=== PATIENT | female | born 1970 | race Two or more races ===

== ENCOUNTER 2019-01-08 15:00 | Inpatient (IN) | payer OTHER ==
[~2019-01-08] VITALS: Ht 180.3 cm; Wt 83.0 kg
[2019-01-08] MEDS ORDERED: SODIUM CHLORIDE 0.9% 1,000 ML IV ONE ×2 (15:04→20:15)
[2019-01-08 15:50] LABS: Basophils # (auto) 0.1 uL; Basophils % (auto) 0.5 % (0.0-2.0); Eosinophils # (auto) 0 uL; Eosinophils % (auto) 0.3 % (0.0-7.0); Hematocrit 37.1 % (36.0-46.0); Hemoglobin 12.4 g/dL (12.2-16.2); Lymphocytes % (auto) 5.8 % (10.0-50.0); Mean Corpuscular Hemoglobin 33.6 pg (28.0-32.0); Mean Corpuscular Hgb Conc. 33.4 g/dL (32.0-36.0); Mean Corpuscular Volume 100.7 fL (80.0-100.0); Monocytes # (auto) 1.4 uL; Monocytes % (auto) 8.4 % (0.0-12.0); Neutrophils # (auto) 14.3 uL; Platelet Count (auto) 197 10^3/uL (140-450); Red Blood Cells 3.69 10^6/uL (4.0-5.20); White Blood Cell 16.8 10^3/uL (4.4-10.8)
[2019-01-08 15:56] LABS: Albumin 1.7 g/dL (3.4-5.0); BUN/Creatinine Ratio 14.4; Calcium 8.8 mg/dL (8.5-10.1); Magnesium 1.8 mg/dL (1.6-2.6)
[2019-01-08 15:59] LABS: Bilirubin, Total 3.9 mg/dL (0.2-1.0); Total Protein 6.3 g/dL (6.4-8.2)
[2019-01-08 16:02] LABS: Potassium 2.8 mmol/L (3.5-5.1)
[2019-01-08] MEDS ORDERED: POTASSIUM CHL 20MEQ/100ML 100 ML IV ONE (16:45)
[2019-01-08] MEDS ORDERED: POTASSIUM CHL 20 Meq TABLET PO ONE (20:00)
[2019-01-08] MEDS ORDERED: NITROGLYCERIN 0.4 MG SL TAB SL PRN (20:45)
[2019-01-08] MEDS ORDERED: TEMAZEPAM 15 MG CAP PO PRN (20:45)
[2019-01-08] MEDS ORDERED: ONDANSETRON HCL 4 MG/2 ML VIAL IV PRN (20:45)
[2019-01-08] MEDS ORDERED: chlordiazePOXIDE HCL 25 MG CAP PO PRN (20:45)
[2019-01-08] MEDS ORDERED: MORPHINE SULF INJ 2 MG/ML SYRINGE 1ML IV PRN (20:45)
[2019-01-08] MEDS ORDERED: PANTOPRAZOLE 40 MG TAB PO ONE (20:45)
[2019-01-08] MEDS ORDERED: LEVOFLOXACIN 500MG 100 ML IV ONE (20:45)
[2019-01-08 21:45] VITALS: BP 112/68
[2019-01-08] MEDS ORDERED: SODIUM CHLORIDE 0.9% 500 ML IV ONE (21:45)
--- NOTE | 2019-01-08 21:45 | NUR ---
RECEIVED PATIENT FORM ED VIA STRETCHER, AWAKE, ALERT, ORIENTED X4. NO S/S OF RESPIRATORY DISTRESS, DENIES SOB AND CHEST PAIN. DENIES ABDOMINAL PAIN, NAUSEA AND VOMITING. WITH IV ON THE LEFT AC GAUGE 20. ORIENTED ON PLAN OF CARE. BED IS LOCKED AND IN LOWEST LEVEL, SIDE RAILS UP X2, BED ALARM ON, CALL LIGHT WITHIN REACH. WILL CONTINUE TO MONITOR
[2019-01-08 22:00] VITALS: BP 112/68
--- NOTE | 2019-01-08 22:30 | NUR ---
WITH ABRASIONS ON THE RIGHT FOREHEAD AND RIGHT FOREARM. PHOTOS TAKEN
[2019-01-08] MEDS ORDERED: INSLISPI SC (22:37)
[2019-01-08] MEDS ORDERED: MAGN400T5 PO (22:37)
[2019-01-08] MEDS ORDERED: INSLANTI SC (22:37)
--- NOTE | 2019-01-08 23:50 | NUR ---
[facility]SA NASAL SWAB SAMPLE SENT TO LAB
[2019-01-09 05:10] VITALS: BP 105/74
--- NOTE | 2019-01-09 05:13 | NUR ---
ULCERS ON THE 2ND DIGIT OF BOTH RIGHT AND LEFT FOOT NOTED. PICTURES TAKEN
[2019-01-09 06:30] LABS: Basophils # (auto) 0.1 uL; Basophils % (auto) 0.3 % (0.0-2.0); Eosinophils # (auto) 0.1 uL; Eosinophils % (auto) 0.3 % (0.0-7.0); Hematocrit 32.1 % (36.0-46.0); Hemoglobin 10.6 g/dL (12.2-16.2); Lymphocytes # (auto) 1.1 uL; Lymphocytes % (auto) 5.6 % (10.0-50.0); Mean Corpuscular Hemoglobin 33.3 pg (28.0-32.0); Mean Corpuscular Hgb Conc. 32.9 g/dL (32.0-36.0); Mean Corpuscular Volume 101.1 fL (80.0-100.0); Monocytes # (auto) 2.8 uL; Neutrophils # (auto) 14.7 uL; Neutrophils % (auto) 78.8 % (37.0-80.0); Platelet Count (auto) 189 10^3/uL (140-450); Red Blood Cells 3.18 10^6/uL (4.0-5.20); Red Cell Distribution Width 15.1 % (11.8-14.3); White Blood Cell 18.6 10^3/uL (4.4-10.8)
[2019-01-09 06:47] LABS: Potassium 3.1 mmol/L (3.5-5.1)
[2019-01-09 06:52] LABS: Albumin 1.4 g/dL (3.4-5.0); Calcium 7.8 mg/dL (8.5-10.1)
[2019-01-09 06:55] LABS: Total Protein 5.5 g/dL (6.4-8.2)
--- NOTE | 2019-01-09 07:23 | NUR ---
CARE ENDORSED TO AM SHIFT RN
--- NOTE | 2019-01-09 08:00 | NUR ---
AWAKE ALERT ORIENTED TIMES 4 DENIES ANY PAIN AT THIS TIME.
[2019-01-09 09:28] VITALS: BP 110/73
[2019-01-09] MEDS: FOLIC ACID 1 MG TAB PO SCH (10:33)
[2019-01-09] MEDS: LEVOFLOXACIN 500MG 100 ML IV SCH (10:33)
[2019-01-09] MEDS: PANTOPRAZOLE 40 MG TAB PO SCH (10:34)
[2019-01-09] MEDS: THIAMINE HCL 100 MG TAB PO SCH (10:34)
--- NOTE | 2019-01-09 12:00 | NUR ---
DR Shanita MERCER AT BEDSIDE DISCUSSED PLAN OF CARE WITH PATIENT. PATIENT VERBALIZED UNDERSTANDING. PLAN FOR DISCHARGE TOMORROW.
--- NOTE | 2019-01-09 12:20 | NUR ---
WOUND CARE NOTE: Wound care in to see patient per wound care request regarding multiple skin integrity issue that are noted present on admission. Bedside nurse took photograph of patient's skin integrity issue upon admission for reference. Patient is 48 years old female with admitting diagnosis of Alcohol Withdrawal, Bradycardia. She has history of DM, htn,liver problems. Patient is resting in bed in Rm. 290A. She's ambulatory and able to turn and reposition self. Her current Jr score is 19. Patient is in no stated pain at this time. No open wound noted other than multiple scabbed wounds/abrasions to forehead, Rt forearm, hand, dry intact scabbed wounds to Lt & Rt 2nd toe and intact ecchymosis to Lt upper shoulder and arm. No pressure injury issue noted. Patient tolerated skin examination well. Left patient seated at side of bed to eat her lunch, RN Jolene made aware. No further Wound care monitoring needed at this time. RECOMMENDATION: New wound consult in case of active wound, pressure injury, Jr score of 12 and below. Addendum: 01/09/19 at 1658 by Marta Nielsen RN Amended: Links added.
[2019-01-09] MEDS: MULTIPLE VITAMIN 10 ML, MAGNESIUM SULF SDV 50% 8 MEQ, THIAMINE INJ 100 MG in SODIUM CHL... IV SCH (12:38)
[2019-01-09 12:41] VITALS: BP 110/73
[2019-01-09] MEDS ORDERED: DEXTROSE (50%) 50ML SYRG IV PRN (14:15)
[2019-01-09 16:34] VITALS: BP 133/88
[2019-01-09] MEDS: InsuLIN REG 1unit/0.01ml Soln (100units/ml) SC SCH ×2 (17:10→21:41)
[2019-01-09] MEDS: ACCU-CHEK COMFORT CURVE STRIP VI SCH ×2 (17:10→21:41)
--- NOTE | 2019-01-09 18:36 | NUR ---
PAGED HOSPITALIST TO NOTIFY OF POSITIVE BLOOD CULTURE GRAM NEGATIVE RODS
--- NOTE | 2019-01-09 19:20 | NUR ---
Opening Shift Note Assumed care of patient, awake and alert. No S/S of distress/SOB or pain. Instructed on POC and to call for assist PRN, will continue to monitor for changes Q1hr and PRN. Bed alarm on, safety precautions in place. Inform pt to please notify before getting out of, bed locked and in lowest position, call light within reach.
--- NOTE | 2019-01-09 20:07 | NUR ---
UA SENT TO LAB
[2019-01-09 21:00] LABS: Urine Bacteria FEW /hpf (None Seen); Urine Blood 2+ /uL (Negative); Urine Hyaline Cast FEW /lpf (0 - 2); Urine Mucus FEW (None Seen); Urine Specific Gravity 1.011 (1.001-1.035); Urine WBC 220 /hpf (0 - 5); Urine WBC Clumps PRESENT /hpf (None Seen)
[2019-01-09 22:00] VITALS: BP 118/76
--- NOTE | 2019-01-10 01:52 | NUR ---
PT ROUNDS Assisted pt to the bathroom, but upon returning pt wanted to leave, not alert with unsteady gait. Inform pt that it was too early for her to leave and against medical advice. Was assisted by Carie Zimmer and QUINCY Gottlieb and US Vivar as pt is high risk for fall with a very unsteady gait. PT fell asleep shortly after returning to bed.
[2019-01-10 05:00] VITALS: BP 102/60
--- NOTE | 2019-01-10 05:55 | NUR ---
PT ROUNDS PT wanting to leave, inform patient that it is against medical advice , pt currently not alert, unsteady gait. Inform pt if she would like to take anything that will calm her down, pt refused. Informed pt will attempt to get in touch with . Informed fire alarm dispatcher of situation. Left voicemail. Will await call back and continue to monitor pt at this time fire alarm dispatcher at bedside and primary RN at Bedside. fire alarm dispatcher informed pt if would like to take any meds to help her calm down, pt refused stated " I don't want to take anything from you people." Assited pt to bed will continue to monitor pt.
--- NOTE | 2019-01-10 06:10 | NUR ---
ATTEMPTED TO CALL NEXT OF KIN unsuccessful attempt, cell and home phone was called.
[2019-01-10] MEDS: InsuLIN REG 1unit/0.01ml Soln (100units/ml) SC SCH ×4 (06:11→21:57)
[2019-01-10] MEDS: ACCU-CHEK COMFORT CURVE STRIP VI SCH ×4 (06:11→21:35)
--- NOTE | 2019-01-10 06:25 | NUR ---
PT ROUNDS PT sleeping will continue to monitor pt
--- NOTE | 2019-01-10 06:51 | NUR ---
ATTEMPTED TO CALL Attempted to call , no answer left voice mail, will inform day nurse/
--- NOTE | 2019-01-10 07:17 | NUR ---
CLOSING NOTE Report endorsed to day RN PT awake, laying in bed with feet dangling. Informed day RN in regards to current situation and that weigher and charger was informed
--- NOTE | 2019-01-10 08:00 | NUR ---
AWAKE ALERT ORIENTED TIMES 3. ASKING TO GO HOME. I INFORMED HER THAT WE ARE WAITING FOR DR MERCER.
[2019-01-10 09:41] VITALS: BP 102/57
[2019-01-10] MEDS: LEVOFLOXACIN 500MG 100 ML IV SCH (09:57)
[2019-01-10] MEDS: FOLIC ACID 1 MG TAB PO SCH (09:57)
[2019-01-10] MEDS: PANTOPRAZOLE 40 MG TAB PO SCH (09:57)
[2019-01-10] MEDS: THIAMINE HCL 100 MG TAB PO SCH (09:57)
--- NOTE | 2019-01-10 10:54 | NUR ---
ASKING FOR HER IV TO BE REMOVED. SHE SAID SHE CALLED HER RIDE AND WANTS TO LEAVE. SHE REMOVED HER TELE BOX.
--- NOTE | 2019-01-10 11:02 | NUR ---
AT BEDSIDE. HE STATES THIS IS NOT THE NORMAL BEHAVIOR OF THE PATIENT. SHE IS MUCH SLOWER THAN USUAL AND WOULD LIKE TO SPEAK TO THE DOCTOR. HE SAID HOW CAN SHE BE DISCHARGED WHEN SHE CAN'T EVEN FUNCTION. THE PATIENT HAS GENERALIZED WEAKNESS.
[2019-01-10] MEDS: MULTIPLE VITAMIN 10 ML, MAGNESIUM SULF SDV 50% 8 MEQ, THIAMINE INJ 100 MG in SODIUM CHL... IV SCH (12:00)
[2019-01-10] MEDS ORDERED: POTASSIUM CHL 20MEQ/100ML 100 ML IV ONE (12:15)
[2019-01-10] MEDS ORDERED: VANCOMYCIN PER PHARMACY 0 MG IV SCH (12:15)
[2019-01-10] MEDS ORDERED: VANCOMYCIN 1GM/250ML 250 ML IV ONE (12:15)
[2019-01-10 12:55] VITALS: BP 96/67
[2019-01-10 13:30] LABS: Albumin 1.5 g/dL (3.4-5.0); BUN/Creatinine Ratio 18.4; Calcium 7.8 mg/dL (8.5-10.1); Potassium 3.9 mmol/L (3.5-5.1)
[2019-01-10 13:32] LABS: Bilirubin, Total 2.3 mg/dL (0.2-1.0); Total Protein 5.8 g/dL (6.4-8.2)
[2019-01-10] MEDS: VANCOMYCIN 1,250 MG in D5W 5% 250 ML IV SCH (14:29)
[2019-01-10 16:39] VITALS: BP 107/78
--- NOTE | 2019-01-10 20:02 | NUR ---
report received from day rn poc reviewed, charge notified of sitter room available, pt needs a sitter for safety
[2019-01-10 21:04] VITALS: BP 130/86
--- NOTE | 2019-01-10 21:30 | NUR ---
pt starting to have an increase in tremors and restlessness and confusion, librium given as ordered, pt moved to rm 287a sitter room for safety
[2019-01-10 22:00] VITALS: BP 130/86
[2019-01-11] MEDS: VANCOMYCIN 1,250 MG in D5W 5% 250 ML IV SCH ×3 (02:36→16:47)
--- NOTE | 2019-01-11 02:44 | NUR ---
resting quietly with eyes closed no c/o pain
[2019-01-11 05:22] VITALS: BP 113/73
[2019-01-11 06:47] LABS: Albumin 1.5 g/dL (3.4-5.0); Calcium 8.2 mg/dL (8.5-10.1); Potassium 3.2 mmol/L (3.5-5.1)
[2019-01-11 06:49] LABS: BUN/Creatinine Ratio 17.8
[2019-01-11] MEDS: InsuLIN REG 1unit/0.01ml Soln (100units/ml) SC SCH ×4 (06:49→21:51)
[2019-01-11] MEDS: ACCU-CHEK COMFORT CURVE STRIP VI SCH ×4 (06:50→21:51)
[2019-01-11 06:59] LABS: Alcohol, Urine < 3.0 mg/dL (0-5); Amphetamine Screen, Urine NEGATIVE (NEGATIVE); Barbiturate Scree,Urine NEGATIVE (NEGATIVE); Benzodiazephine Screen, Urine POSITIVE (NEGATIVE); Cannabinoid Screen, Urine NEGATIVE (NEGATIVE); Cocaine Screen, Urine NEGATIVE (NEGATIVE); Opiate Scree,Urine NEGATIVE (NEGATIVE); Phencyclidine Screen, Urine NEGATIVE (NEGATIVE)
--- NOTE | 2019-01-11 06:59 | NUR ---
awoke am care given resting with eyes closed no c/o pain or s/s of anxiety will continue to monitor and report off to am nurse
[2019-01-11 07:00] LABS: Bilirubin, Total 1.9 mg/dL (0.2-1.0)
[2019-01-11 07:19] LABS: Hematocrit 33.3 % (36.0-46.0); Mean Corpuscular Hemoglobin 33.5 pg (28.0-32.0); Mean Corpuscular Volume 101.5 fL (80.0-100.0); Platelet Count (auto) 273 10^3/uL (140-450); Red Blood Cells 3.28 10^6/uL (4.0-5.20); Red Cell Distribution Width 15.1 % (11.8-14.3); White Blood Cell 24.2 10^3/uL (4.4-10.8)
[2019-01-11 07:28] LABS: Basophils % (manual) 0 (0.0-2.0); Blast Cells 0; Eosinophils % (manual) 0 (0-7); Metamyelocytes % 0; Myelocytes % 0; Promyelocytes % 0; Reactive Lymphocytes 0
--- NOTE | 2019-01-11 08:00 | NUR ---
PT RESTING IN BED, NO DISTRESS NOTED. SITTER AT BEDSIDE. PT DENIED PAIN AT THIS TIME.
[2019-01-11 08:24] LABS: Band Neutrophils % (manual) 1; Lymphocytes % (manual) 5 (10.0-50.0); Monocytes % (manual) 4 (0-12)
[2019-01-11 09:00] VITALS: BP 106/69
[2019-01-11] MEDS: LEVOFLOXACIN 500MG 100 ML IV SCH (09:44)
[2019-01-11] MEDS: FOLIC ACID 1 MG TAB PO SCH (09:44)
[2019-01-11] MEDS: THIAMINE HCL 100 MG TAB PO SCH (09:45)
[2019-01-11] MEDS: PANTOPRAZOLE 40 MG TAB PO SCH (09:45)
[2019-01-11] MEDS: MEROPENEM 1GM IVPB 100 ML IV SCH ×2 (11:54→20:00)
[2019-01-11 12:48] VITALS: BP 126/80
--- NOTE | 2019-01-11 12:49 | NUR ---
DR MERCER SAW PT AND DISCUSSED POC. DR MERCER REQUESTS A CALL TO LAB TO FIND OUT SENSITIVITY FOR BLOOD AND URINE CULTURES. CALLED LAB, LAB REPORTS POSSIBLE ESBL OF BLOOD, BUT UNSURE, TECH WILL REPEAT SENSITIVITY AND WILL BE READY TOMORROW. THE URINE CULTURE SHE REPORTS WON'T BE READY UNTIL TOMORROW WELL. TECH REPORTS SHE WILL PUT IN NOTE WITH MORE INFO FOR MD. WILL CONTINUE TO MONITOR.
--- NOTE | 2019-01-11 12:58 | NUR ---
DR MERCER UPDATED ON LAB REPORT. NOTIFIED PT POT 3.2. NEW ORDERS FOR 20 MEQ POT. WILL CONTINUE TO MONITOR.
[2019-01-11] MEDS: MULTIPLE VITAMIN 10 ML, MAGNESIUM SULF SDV 50% 8 MEQ, THIAMINE INJ 100 MG in SODIUM CHL... IV SCH (14:14)
[2019-01-11] MEDS: POTASSIUM CHL 20 Meq TABLET PO ONE ×2 (14:14→16:47)
[2019-01-11 17:00] VITALS: BP 120/76
--- NOTE | 2019-01-11 19:05 | NUR ---
OPEN SHIFT NOTE PATIENT IS ALERT AND ORIENTED X3, ON ROOM AIR, RIGHT HAND 20 GAUGE IS INTACT AND PATENT. PATIENT HAS NO COMPLAINTS OF PAIN AT THIS TIME. POC DISCUSSED AND QUESTIONS ANSWERED. BED IS LOCKED IN LOWEST POSITION WITH SIDE RAILS UP X2 FOR SAFETY. CALL LIGHT IS WITHIN REACH AND ENCOURAGED TO CALL IF NEEDS ANYTHING. WILL CONTINUE TO ROUND Q1HR AND PRN.
[2019-01-11 22:00] VITALS: BP 132/80
[2019-01-12 01:19] LABS: Albumin 1.6 g/dL (3.4-5.0); Calcium 8.4 mg/dL (8.5-10.1); Potassium 3.3 mmol/L (3.5-5.1)
[2019-01-12 01:21] LABS: BUN/Creatinine Ratio 15.8
[2019-01-12 01:23] LABS: Bilirubin, Total 1.9 mg/dL (0.2-1.0)
[2019-01-12] MEDS: VANCOMYCIN 1,250 MG in D5W 5% 250 ML IV SCH (02:07)
[2019-01-12] MEDS: MEROPENEM 1GM IVPB 100 ML IV SCH ×2 (04:07→11:19)
[2019-01-12] MEDS: ACCU-CHEK COMFORT CURVE STRIP VI SCH ×3 (06:24→18:28)
[2019-01-12 06:28] VITALS: BP 113/68
[2019-01-12] MEDS: InsuLIN REG 1unit/0.01ml Soln (100units/ml) SC SCH ×3 (06:31→18:28)
[2019-01-12 07:19] LABS: Basophils # (auto) 0 uL; Basophils % (auto) 0.2 % (0.0-2.0); Eosinophils # (auto) 0.1 uL; Eosinophils % (auto) 0.3 % (0.0-7.0); Hematocrit 29.8 % (36.0-46.0); Hemoglobin 9.8 g/dL (12.2-16.2); Lymphocytes # (auto) 0.9 uL; Lymphocytes % (auto) 4.3 % (10.0-50.0); Mean Corpuscular Hemoglobin 33.4 pg (28.0-32.0); Mean Corpuscular Hgb Conc. 32.9 g/dL (32.0-36.0); Mean Corpuscular Volume 101.5 fL (80.0-100.0); Monocytes # (auto) 0.7 uL; Monocytes % (auto) 3.5 % (0.0-12.0); Neutrophils # (auto) 19.4 uL; Neutrophils % (auto) 91.7 % (37.0-80.0); Platelet Count (auto) 287 10^3/uL (140-450); Red Blood Cells 2.94 10^6/uL (4.0-5.20); Red Cell Distribution Width 15.4 % (11.8-14.3); White Blood Cell 21.1 10^3/uL (4.4-10.8)
[2019-01-12 07:26] LABS: Albumin 1.3 g/dL (3.4-5.0); BUN/Creatinine Ratio 19.3; Calcium 7.4 mg/dL (8.5-10.1); Potassium 3.2 mmol/L (3.5-5.1)
[2019-01-12 07:28] LABS: Bilirubin, Total 1.6 mg/dL (0.2-1.0); Total Protein 5.5 g/dL (6.4-8.2)
--- NOTE | 2019-01-12 07:41 | NUR ---
CALLED LAB FOR SENSITIVITY RESULTS, NO ANSWER. PT A AND O X 4 AND RESTING IN BED. PT REPORTS NO PAIN AT THIS TIME. SITTER AT BEDSIDE, WILL CONTINUE TO MONITOR.
--- NOTE | 2019-01-12 08:12 | NUR ---
CALLED LAB AGAIN FOR SENSITIVITY RESULT FOR BLOOD AND URINE CULTURES. TECH REPORTS SHE JUST GOT IN AND WILL CALL BACK IN 10 MINUTES.
--- NOTE | 2019-01-12 08:34 | NUR ---
RECEIVED CALL FROM LAB, PT POSITIVE FOR ECOLI AND ESBL IN BLOOD AND URINE, REPORTED TO CHARGE TO HAVE PT CHANGE ROOMS, CHARGE AWARE, LIMITED ROOMS AVAILABLE, WILL CONTINUE TO MONITOR.
[2019-01-12 08:48] VITALS: BP 94/66
[2019-01-12] MEDS: THIAMINE HCL 100 MG TAB PO SCH (09:29)
[2019-01-12] MEDS: PANTOPRAZOLE 40 MG TAB PO SCH (09:29)
[2019-01-12] MEDS: FOLIC ACID 1 MG TAB PO SCH (09:29)
[2019-01-12] MEDS: MULTIPLE VITAMIN 10 ML, MAGNESIUM SULF SDV 50% 8 MEQ, THIAMINE INJ 100 MG in SODIUM CHL... IV SCH (11:20)
--- NOTE | 2019-01-12 12:03 | NUR ---
DR MERCER SAW PATIENT, NEW ORDERS TO TRANSFER PT TO [facility]. REQUESTS JUNIOR START ON TRANSFER. CALLED JUNIOR AND LEFT MESSAGE REQUESTING SHE BEGIN TRANSFER PROCESS.
[2019-01-12] MEDS ORDERED: POTASSIUM CHL 20 Meq TABLET PO ONE (12:45)
[2019-01-12 13:06] VITALS: BP 109/72
--- NOTE | 2019-01-12 13:18 | NUR ---
CALLED JUNIOR AGAIN, NO ANSWER, LEFT ANOTHER MESSAGE REQUESTING SHE START ON PT TRANSFER. WILL CONTINUE TO MONITOR.
--- NOTE | 2019-01-12 13:24 | NUR ---
LUZMA IN CASE MANAGEMENT CALLED. SHE REPORTS SHE WILL FAX PT INFORMATION TO [facility] AND [facility] WILL CALL WHEN THEY HAVE BED AVAILABLE.
--- NOTE | 2019-01-12 13:33 | NUR ---
I faxed transfer order to [facility].
--- NOTE | 2019-01-12 13:51 | NUR ---
I spoke with [facility] [employer] Counter Clerk Tara, she is aware of the transfer order and is working on a bed for this patient-provided her with contact information for both Dr. Shanita Shaikh and the nurse's station-they will call nurse's station when a bed becomes available.
--- NOTE | 2019-01-12 15:13 | NUR ---
Nutrition Assessment Notes please see attached link for complete assessment Est. Needs BW [id number] kcal (23-255 kcal/kgBW), 83-99 gms pro (1.0-1.2 gms/kgBW r/t severe hypoalb). Will continue to monitor pertinent labs and reassess nutrient need prn Addendum: 01/12/19 at [address] Amended: Links added.
[2019-01-12 17:00] VITALS: BP 131/82
--- NOTE | 2019-01-12 18:00 | NUR ---
REPOSSESSION AGENT REPORTS PT IV SITE ON HAND IS SWOLLEN AND TENDER. IV DISCONTINUED. NEW IV ATTEMPTED TWICE. UNABLE TO START. ASKED LEE PRECEPTING FOR ASSISTANCE. NEW IV INSERTED USING STERILE TECHNIQUE, LH 22G. IV FLUSHED WITH 10 MLS 0.9 NS. PT TOLERATED PROCEDURE WELL.
--- NOTE | 2019-01-12 19:09 | NUR ---
PATIENTS BROTHER AT BEDSIDE AND NOTIFIED OF PATIENTS TRANSFER TO [facility] [place] ROOM 318. PATIENTS CALLED AND NOTIFIED OF TRANSFER WELL.
[2019-01-12 19:14] VITALS: BP 131/82
--- NOTE | 2019-01-12 20:00 | NUR ---
RECEIVED CALL FROM NICHOLE AT [facility] [phone], PT TRANSFERING TO [facility] [place] [id number] [facility], . ACCEPTING DR IS DR SORENSON. NURSE TO GIVE REPORT TO IS MARINA MATHEW. AMBULANCE WILL RN TRANSFER PATIENT AT 1999. NOTIFIED PT BROTHER YAJAIRA GONZALEZ AND OF PT TRANSFER, BOTH AT PATIENT BEDSIDE. NIGHT NURSE REPORTS SHE WILL NOTIFY . DISCHARGE PAPERWORK DONE, ONLY SIGNATURES NEEDED FROM PATIENT. ATTEMPTED TO GIVE REPORT TO NURSE AT [facility]. NURSE REPORTED HE WAS BUSY AND TO PLEASE CALL BACK. GAVE REPORT TO NIGHT NURSE, SHE REPORTS SHE WILL CALL PT AND NOTIFY HIM AND GIVE REPORT TO MARINA MATHEW AT [facility].
--- NOTE | 2019-01-12 20:07 | NUR ---
PATIENT WILL BE TRANSFERRING TO ROOM 318 AT [facility]. REPORT GIVEN TO [facility] [id number].
== END 2019-01-12 20:45 | disposition short-term general hospital (02) | DRG 871 ==
LOC: EDBD 15:00 → ER 15:00 → TELE 20:34 → TELE-WESTW 21:47
PROVIDERS: ADMIT Nurse Practitioner; ATTEND Family Medicine
DX: A41.50 Gram-negative sepsis, unspecified (principal); E43 Unspecified severe protein-calorie malnutrition; E87.1 Hypo-osmolality and hyponatremia; E87.6 Hypokalemia; K70.30 Alcoholic cirrhosis of liver without ascites; I10 Essential (primary) hypertension; E86.0 Dehydration; E11.9 Type 2 diabetes mellitus without complications; E87.8 Other disorders of electrolyte and fluid balance, not elsewhere classified; F10.10 Alcohol abuse, uncomplicated; Z90.710 Acquired absence of both cervix and uterus; Z88.1 Allergy status to other antibiotic agents; Z88.0 Allergy status to penicillin; Z90.49 Acquired absence of other specified parts of digestive tract; Z98.51 Tubal ligation status; Z68.25 Body mass index [BMI] 25.0-25.9, adult
CPT/HCPCS: 36415; 70450; 71045; 73030; 80053; 80202; 80307; 80320; 81001; 82140; 82962; 83605; 83690; 83735; 85007; 85025; 85027; 87040; 87077; 87081; 87086; 87088; 87186; 94761; 96361; 96365; 96366; 96375; G0378; J1815; J1956; J2185; J3480; J7060

== ENCOUNTER 2020-04-26 17:15 | Emergency (ER) | payer OTHER ==
[~2020-04-26] VITALS: Ht 177.8 cm; Wt 72.6 kg
[~2020-04-26 17:15] MED LIST: INSLANTI SC; INSLISPI SC; MAGN400T40 PO
[2020-04-26] MEDS ORDERED: ONDANSETRON HCL 4 MG/2 ML VIAL IV ONE (18:15)
[2020-04-26] MEDS ORDERED: MORPHINE SULFATE 4 MG/ML SYR/VIAL IV ONE ×2 (18:15→23:30)
[2020-04-26] MEDS ORDERED: SODIUM CHLORIDE 0.9% 1,000 ML IV ONE (18:15)
[2020-04-26 19:08] LABS: Basophils # (auto) 0 10 ^3/uL (0-0.2); Eosinophils # (auto) 0 10 ^3/uL (0-0.8); Eosinophils % (auto) 0.4 % (0.0-7.0); Hemoglobin 13.2 g/dL (12.2-16.2); Lymphocytes # (auto) 1.6 10 ^3/uL (0.4-5.4); Lymphocytes % (auto) 39.6 % (10.0-50.0); Mean Corpuscular Hemoglobin 32.8 pg (28.0-32.0); Mean Corpuscular Volume 99.3 fL (80.0-100.0); Monocytes # (auto) 0.2 10 ^3/uL (0-1.3); Monocytes % (auto) 4.8 % (0.0-12.0); Neutrophils # (auto) 2.2 10 ^3/uL (1.6-8.6); Neutrophils % (auto) 54.2 % (37.0-80.0); Nucleated Red Blood Cells % 0.3 %; Platelet Count (auto) 104 10^3/uL (140-450); Red Blood Cells 4.03 10^6/uL (4.0-5.20); Red Cell Distribution Width 16.2 % (11.8-14.3); White Blood Cell 4.1 10^3/uL (4.4-10.8)
[2020-04-26 19:22] LABS: Albumin 2.7 g/dL (3.4-5.0); Calcium 7.3 mg/dL (8.5-10.1); Potassium 3.3 mmol/L (3.5-5.1)
[2020-04-26 19:24] LABS: BUN/Creatinine Ratio 15.5
[2020-04-26 19:27] LABS: Bilirubin, Total 0.7 mg/dL (0.2-1.0); Total Protein 7.1 g/dL (6.4-8.2)
[2020-04-26] MEDS ORDERED: DEXTROSE (50%) 50ML SYRG IV ONE (19:30)
[2020-04-26] MEDS ORDERED: HYDROmorphone HCL 2 MG/ML VL IV ONE (21:45)
[2020-04-26 23:15] VITALS: BP 149/100
== END 2020-04-26 19:19 | disposition short-term general hospital (02) ==
LOC: ER 17:15 → EDBD 17:15 → ER 19:19
DX: S72.092A Other fracture of head and neck of left femur, initial encounter for closed fracture (principal); F10.920 Alcohol use, unspecified with intoxication, uncomplicated; E11.9 Type 2 diabetes mellitus without complications; I10 Essential (primary) hypertension; E78.5 Hyperlipidemia, unspecified; Z90.49 Acquired absence of other specified parts of digestive tract; Z88.0 Allergy status to penicillin; Z88.1 Allergy status to other antibiotic agents; W19.XXXA Unspecified fall, initial encounter; Y93.89 Activity, other specified; Y92.89 Other specified places as the place of occurrence of the external cause; Y99.8 Other external cause status
CPT/HCPCS: 36415; 71045; 73502; 73552; 80053; 80320; 82962; 85025; 96361; 96374; 96375; 96376; 99285; J1170; J2270; J2405; J7030; J7042

== ENCOUNTER 2022-02-27 22:25 | Inpatient (IN) | payer OTHER ==
[~2022-02-27] VITALS: Ht 167.6 cm; Wt 82.2 kg
[2022-02-27] MEDS ORDERED: ROCURONIUM 10MG/ML 10ML VIAL IV ONE (22:31)
[2022-02-27] MEDS ORDERED: ETOMIDATE (2MG/ML) 20ML VIAL IV ONE (22:31)
[2022-02-27] MEDS ORDERED: PROPOFOL 100 ML IV ONE (22:39)
[2022-02-27] MEDS ORDERED: fentaNYL Drip 2500mCg/250mlNS 250 ML IV ONE (22:40)
[2022-02-27 22:48] VITALS: BP 55/27
[2022-02-27] MEDS: NOREPINEPHRINE 8 MG/250ML KIT 250 ML IV SCH (22:50)
[2022-02-27] MEDS ORDERED: NOREPINEPHRINE 8 MG/250ML KIT 250 ML IV ONE (22:51)
[2022-02-27] MEDS ORDERED: CALCIUM CHL 100MG/ML 1,000 MG in D5W 5% 100 ML IV ONE (23:00)
[2022-02-27] MEDS: PROPOFOL 100 ML IV SCH (23:00)
[2022-02-27] MEDS: fentaNYL Drip 2500mCg/250mlNS 250 ML IV SCH (23:00)
[2022-02-27 23:19] LABS: Red Cell Distribution Width 15.3 % (11.8-14.3)
[2022-02-27 23:21] LABS: Hematocrit 32.7 % (36.0-46.0); Hemoglobin 9.4 g/dL (12.2-16.2); Mean Corpuscular Hemoglobin 33.3 pg (28.0-32.0); Mean Corpuscular Hgb Conc. 28.6 g/dL (32.0-36.0); Mean Corpuscular Volume 116.4 fL (80.0-100.0); Red Blood Cells 2.81 10^6/uL (4.0-5.20); White Blood Cell 17.8 10^3/uL (4.4-10.8)
[2022-02-27 23:26] LABS: Basophils % (manual) 0 (0.0-2.0); Blast Cells 0; Eosinophils % (manual) 0 (0-7); Promyelocytes % 0; Reactive Lymphocytes 0
[2022-02-27] MEDS ORDERED: SODIUM CHLORIDE 0.9% 1,000 ML IV ONE ×2 (23:30)
[2022-02-27] MEDS ORDERED: DEXTROSE (50%) 50ML SYRG IV PRN (23:30)
[2022-02-27] MEDS ORDERED: SODIUM BICARBONATE 8.4 % INJ 50ML VIAL IV ONE ×3 (23:30→23:56)
[2022-02-27] MEDS ORDERED: InsuLIN R (HUMAN) 100 UNITS in SODIUM CHL 0.9% 99 ML IV SCH (23:30)
[2022-02-27 23:40] LABS: Band Neutrophils % (manual) 26; Lymphocytes % (manual) 6 (10.0-50.0); Metamyelocytes % 2; Monocytes % (manual) 2 (0-12); Myelocytes % 1
[2022-02-27 23:44] LABS: Lactic Acid w/Reflex 6.6 mmol/L (0.4-2.0)
[2022-02-27] MEDS ORDERED: SODIUM BICARBONATE 50ML VIAL 150 ML in D5W 5% 1,000 ML IV ONE (23:45)
[2022-02-27 23:56] LABS: Urine Bacteria NONE SEEN /hpf (None Seen); Urine WBC 3261 /hpf (0 - 5); Urine WBC Clumps PRESENT /hpf (None Seen)
[2022-02-27 23:58] LABS: Urine Blood 3+ /uL (Negative)
[2022-02-28] VITALS (63 sets, daily range): BP systolic 35–143; BP diastolic 32–87
[2022-02-28] MEDS ORDERED: ROCURONIUM 10MG/ML 10ML VIAL IV ONE
[2022-02-28] MEDS ORDERED: ETOMIDATE (2MG/ML) 20ML VIAL IV ONE
[2022-02-28] MEDS ORDERED: CALCIUM CHLOR(10%) 100MG/ML 10ML SYRINGE IV ONE (00:02)
[2022-02-28 00:03] LABS: Alanine Aminotransferase 99 U/L (13-56); Albumin 2.2 g/dL (3.4-5.0); Anion Gap 32 (5-15); Aspartate Aminotransferase 290 U/L (15-37); BUN/Creatinine Ratio 10.4; Blood Alcohol < 3.0 mg/dL (0-5); Blood Urea Nitrogen 49 mg/dL (7-18); Chloride 90 mmol/L (98-107); GFR African American 13 mL/min; GFR Non-African American 10 mL/min; Glucose 425 mg/dL (74-106); Potassium 6.1 mmol/L (3.5-5.1); Sodium 128 mmol/L (136-145)
[2022-02-28 00:04] LABS: Carbon Dioxide 6 mmol/L (21-32)
[2022-02-28 00:05] LABS: Alkaline Phosphatase 215 U/L (45-117); Bilirubin, Total 1.3 mg/dL (0.2-1.0); Total Protein 6.1 g/dL (6.4-8.2)
[2022-02-28] MEDS: cefTRIAXone SOD 1,000 MG VL IV ONE ×2 (00:15→00:18)
[2022-02-28] MEDS ORDERED: AZITHROMYCIN 500MG/ 250ML 250 ML IV ONE (00:15)
[2022-02-28 00:17] LABS: Alcohol, Urine < 3.0 mg/dL (0-10); Amphetamine Screen, Urine NEGATIVE (NEGATIVE); Barbiturate Scree,Urine NEGATIVE (NEGATIVE); Benzodiazephine Screen, Urine NEGATIVE (NEGATIVE); Cannabinoid Screen, Urine NEGATIVE (NEGATIVE); Cocaine Screen, Urine NEGATIVE (NEGATIVE); Opiate Scree,Urine NEGATIVE (NEGATIVE); Phencyclidine Screen, Urine NEGATIVE (NEGATIVE)
[2022-02-28 00:46] LABS: BUN/Creatinine Ratio 10.5; Calcium 8.4 mg/dL (8.5-10.1); Magnesium 2.3 mg/dL (1.6-2.6)
[2022-02-28 00:47] LABS: Potassium 5.9 mmol/L (3.5-5.1)
[2022-02-28] MEDS: ACCU-CHEK COMFORT CURVE STRIP VI SCH ×16 (01:30→22:39)
[2022-02-28] MEDS: InsuLIN R (HUMAN) 100 UNITS in SODIUM CHL 0.9% 99 ML IV SCH (01:30)
[2022-02-28] MEDS ORDERED: EPINEPHrine HCL 250 ML IV ONE (02:48)
[2022-02-28] MEDS ORDERED: MORPHINE SULFATE INJ 2 MG/ml SYRG IV PRN (03:00)
[2022-02-28] MEDS ORDERED: ENOXAPARIN SOD 100 MG/1 ML SYRINGE SC ONE (03:00)
[2022-02-28] MEDS ORDERED: SODIUM BICARBONATE 50ML VIAL 100 ML in SOD CHL 0.45% 1,000 ML IV SCH (03:00)
[2022-02-28] MEDS ORDERED: ACETAMINOPHEN 325 MG TAB PO PRN (03:00)
[2022-02-28] MEDS ORDERED: NITROGLYCERIN 0.4 MG SL TAB SL PRN (03:00)
[2022-02-28] MEDS ORDERED: ONDANSETRON HCL 4 MG/2 ML VIAL IV PRN (03:00)
[2022-02-28] MEDS ORDERED: NOREPINEPHRINE 8 MG/250ML KIT 250 ML IV ONE (03:16)
[2022-02-28] MEDS ORDERED: CLINDAMYCIN 600MG IV 50 ML IV SCH (06:00)
[2022-02-28 06:07] LABS: INR 1.5 (0.9-1.15)
[2022-02-28 07:12] LABS: BUN/Creatinine Ratio 11.3; Potassium 4.3 mmol/L (3.5-5.1)
[2022-02-28] MEDS ORDERED: PHENYLEPHRINE IV 250 ML IV ONE (07:35)
[2022-02-28] MEDS: EPINEPHrine HCL 250 ML IV SCH ×2 (08:10→11:58)
[2022-02-28] MEDS: PHENYLEPHRINE IV 250 ML IV SCH ×2 (08:11→11:58)
[2022-02-28] MEDS: NOREPINEPHRINE 8 MG/250ML KIT 250 ML IV SCH ×2 (08:24→12:51)
[2022-02-28] MEDS ORDERED: cefTRIAXone 1GM/50ML D5W 50 ML IV SCH (09:00)
[2022-02-28] MEDS: PANTOPRAZOLE 40 MG/10 ML VIAL INJ IV SCH (10:05)
[2022-02-28] MEDS ORDERED: ACETAMINOPHEN 650 MG RECT SUPP PR ONE (10:15)
[2022-02-28] MEDS ORDERED: VASOPRESSIN 20 UNIT/ML ONE (11:23)
[2022-02-28] MEDS: VASOPRESSIN 50 UNITS in D5W 5% 247.5 ML IV SCH (11:32)
[2022-02-28] MEDS ORDERED: ENOXAPARIN SOD 30 MG/0.3 ML SYRINGE SC ONE (11:45)
[2022-02-28] MEDS ORDERED: AMIODARONE HCL 200 MG TAB GT ONE (11:45)
[2022-02-28] MEDS ORDERED: THIAMINE 100mg/ml INJ (200mg/2ml VIAL) IV ONE (11:45)
[2022-02-28] MEDS ORDERED: OPTISON 3ml Vial for INJ IV ONE (11:50)
[2022-02-28 11:58] LABS: BUN/Creatinine Ratio 11.2; Calcium 7.4 mg/dL (8.5-10.1); Potassium 4.4 mmol/L (3.5-5.1)
[2022-02-28] MEDS ORDERED: VANCOMYCIN PER PHARMACY 0 MG IV SCH (12:15)
[2022-02-28] MEDS: LACTULOSE 20Gm/30ML SOLN PO SCH ×2 (12:30→21:57)
[2022-02-28] MEDS: SODIUM CHLORIDE 0.9% 1,000 ML IV SCH ×2 (12:32→20:08)
[2022-02-28] MEDS ORDERED: VANCOMYCIN 1GM/250ML 250 ML IV ONE ×2 (12:45→13:30)
[2022-02-28] MEDS: MEROPENEM 500MG IVPB 50 ML IV SCH ×2 (13:20→21:57)
[2022-02-28] MEDS: PHENYLEPHRINE INJ 80 MG in SODIUM CHL 0.9% 242 ML IV SCH ×2 (13:42→21:02)
[2022-02-28] MEDS ORDERED: MIDAZOLAM DRIP 50 mg/50mL 50 ML IV ONE (14:32)
[2022-02-28] MEDS: MIDAZOLAM DRIP 50 mg/50mL 50 ML IV SCH (14:39)
[2022-02-28] MEDS: NOREPINEPHRINE BITARTRATE 32 MG in SODIUM CHL 0.9% 218 ML IV SCH (18:35)
[2022-02-28] MEDS: fentaNYL Drip 2500mCg/250mlNS 250 ML IV SCH (18:36)
[2022-02-28 18:42] LABS: BUN/Creatinine Ratio 11.4; Calcium 6.6 mg/dL (8.5-10.1); Potassium 4.2 mmol/L (3.5-5.1)
[2022-02-28] MEDS: AMIODARONE HCL 200 MG TAB GT SCH (21:57)
[2022-03-01] VITALS (101 sets, daily range): BP systolic 92–173; BP diastolic 40–88
[2022-03-01] MEDS: ACCU-CHEK COMFORT CURVE STRIP VI SCH ×16 (00:02→22:31)
[2022-03-01] MEDS: MIDAZOLAM DRIP 50 mg/50mL 50 ML IV SCH ×3 (00:04→20:45)
[2022-03-01] MEDS: InsuLIN R (HUMAN) 100 UNITS in SODIUM CHL 0.9% 99 ML IV SCH (00:07)
[2022-03-01 02:12] LABS: Basophils # (auto) 0.1 10 ^3/uL (0-0.2); Eosinophils # (auto) 0.3 10 ^3/uL (0-0.8)
[2022-03-01 02:13] LABS: Basophils % (auto) 0.6 % (0.0-2.0); Eosinophils % (auto) 2.8 % (0.0-7.0); Hematocrit 33.9 % (36.0-46.0); Hemoglobin 11.8 g/dL (12.2-16.2); Mean Corpuscular Hgb Conc. 34.8 g/dL (32.0-36.0); Mean Corpuscular Volume 100.8 fL (80.0-100.0); Monocytes # (auto) 0.4 10 ^3/uL (0-1.3); Monocytes % (auto) 3.6 % (0.0-12.0); Neutrophils # (auto) 9.1 10 ^3/uL (1.6-8.6); Nucleated Red Blood Cells % 0.2 %; Red Blood Cells 3.36 10^6/uL (4.0-5.20); Red Cell Distribution Width 13.8 % (11.8-14.3); White Blood Cell 10.8 10^3/uL (4.4-10.8)
[2022-03-01 02:32] LABS: INR 1.88 (0.9-1.15)
[2022-03-01] MEDS: SODIUM CHLORIDE 0.9% 1,000 ML IV SCH ×4 (02:32→20:19)
[2022-03-01] MEDS: PROPOFOL 100 ML IV SCH (02:33)
[2022-03-01 02:34] LABS: Albumin 1.9 g/dL (3.4-5.0); BUN/Creatinine Ratio 13.5; Calcium 6.8 mg/dL (8.5-10.1)
[2022-03-01 02:37] LABS: Bilirubin, Total 2.4 mg/dL (0.2-1.0); Total Protein 5.9 g/dL (6.4-8.2)
[2022-03-01 03:06] LABS: Lactic Acid w/Reflex 5.2 mmol/L (0.4-2.0)
[2022-03-01] MEDS: EPINEPHrine HCL 250 ML IV SCH (03:38)
[2022-03-01] MEDS: PHENYLEPHRINE INJ 80 MG in SODIUM CHL 0.9% 242 ML IV SCH ×3 (04:14→20:03)
[2022-03-01 04:33] LABS: Urine Bacteria MOD /hpf (None Seen); Urine Blood 3+ /uL (Negative); Urine Hyaline Cast MANY /lpf (0 - 2); Urine Mucus FEW (None Seen); Urine Specific Gravity 1.013 (1.001-1.035); Urine WBC 154 /hpf (0 - 5)
[2022-03-01] MEDS: MEROPENEM 500MG IVPB 50 ML IV SCH ×2 (09:09→22:00)
[2022-03-01] MEDS: PANTOPRAZOLE 40 MG/10 ML VIAL INJ IV SCH (09:09)
[2022-03-01] MEDS: THIAMINE 100mg/ml INJ (200mg/2ml VIAL) IV SCH (09:09)
[2022-03-01] MEDS: fentaNYL Drip 2500mCg/250mlNS 250 ML IV SCH ×2 (09:13→23:50)
[2022-03-01] MEDS: AMIODARONE HCL 200 MG TAB GT SCH ×2 (09:42→22:01)
[2022-03-01] MEDS: LACTULOSE 20Gm/30ML SOLN PO SCH (09:43)
[2022-03-01] MEDS ORDERED: ENOXAPARIN SOD 30 MG/0.3 ML SYRINGE SC SCH (10:00)
[2022-03-01] MEDS ORDERED: TPN PER PHARMACY 0 ML IV SCH ×2 (10:45→11:30)
[2022-03-01 11:30] LABS: Magnesium 1.4 mg/dL (1.6-2.6)
[2022-03-01] MEDS: VASOPRESSIN 50 UNITS in D5W 5% 247.5 ML IV SCH (11:30)
[2022-03-01 11:32] LABS: Phosphorus 3.4 mg/dL (2.5-4.90)
[2022-03-01] MEDS: NOREPINEPHRINE BITARTRATE 32 MG in SODIUM CHL 0.9% 218 ML IV SCH (11:51)
[2022-03-01 12:37] LABS: Mean Corpuscular Hgb Conc. 32.7 g/dL (32.0-36.0)
[2022-03-01 12:39] LABS: Hematocrit 34.1 % (36.0-46.0); Hemoglobin 11.2 g/dL (12.2-16.2); Mean Corpuscular Hemoglobin 32.6 pg (28.0-32.0); Mean Corpuscular Volume 99.7 fL (80.0-100.0); Red Blood Cells 3.43 10^6/uL (4.0-5.20); Red Cell Distribution Width 13.9 % (11.8-14.3); White Blood Cell 12.2 10^3/uL (4.4-10.8)
[2022-03-01 12:44] LABS: Basophils % (manual) 0 (0.0-2.0); Blast Cells 0; Eosinophils % (manual) 0 (0-7); Myelocytes % 0; Promyelocytes % 0; Reactive Lymphocytes 0
[2022-03-01 12:57] LABS: Albumin 1.6 g/dL (3.4-5.0); Calcium 6.4 mg/dL (8.5-10.1); Potassium 3.7 mmol/L (3.5-5.1)
[2022-03-01 13:00] LABS: BUN/Creatinine Ratio 15.2; Bilirubin, Total 2.3 mg/dL (0.2-1.0); Total Protein 5.5 g/dL (6.4-8.2)
[2022-03-01 13:25] LABS: Lactic Acid w/Reflex 2.6 mmol/L (0.4-2.0)
[2022-03-01] MEDS ORDERED: MAGNESIUM SULFATE 1GM/100ML 100 ML IV ONE (13:45)
[2022-03-01] MEDS ORDERED: INSUINJ37 SC (13:49)
[2022-03-01] MEDS ORDERED: POTA10TA32 PO (13:49)
[2022-03-01] MEDS ORDERED: FLUO-125 PO (13:49)
[2022-03-01] MEDS ORDERED: GABA300C10 PO (13:49)
[2022-03-01] MEDS ORDERED: INSU100I4 SC (13:49)
[2022-03-01] MEDS ORDERED: NORT25CA PO (13:49)
[2022-03-01 13:56] LABS: Band Neutrophils % (manual) 43; Lymphocytes % (manual) 3 (10.0-50.0)
[2022-03-01 13:57] LABS: Metamyelocytes % 1; Monocytes % (manual) 4 (0-12)
[2022-03-01] MEDS ORDERED: VANCOMYCIN 1GM/250ML 250 ML IV ONE (14:00)
[2022-03-01 18:56] LABS: BUN/Creatinine Ratio 16.2; Calcium 6.6 mg/dL (8.5-10.1); Potassium 3.6 mmol/L (3.5-5.1)
[2022-03-01] MEDS ORDERED: AMINO ACID INFUSION IN D10W 1,000 ML IV NR (20:00)
[2022-03-02] VITALS (103 sets, daily range): BP systolic 64–166; BP diastolic 36–97
[2022-03-02] MEDS: ACCU-CHEK COMFORT CURVE STRIP VI SCH ×16 (00:02→22:32)
[2022-03-02 00:15] LABS: BUN/Creatinine Ratio 17.2; Calcium 6.6 mg/dL (8.5-10.1); Potassium 3.3 mmol/L (3.5-5.1)
[2022-03-02] MEDS: PROPOFOL 100 ML IV SCH (02:45)
[2022-03-02 04:04] LABS: Hemoglobin 10.7 g/dL (12.2-16.2); Red Blood Cells 3.25 10^6/uL (4.0-5.20); White Blood Cell 12.9 10^3/uL (4.4-10.8)
[2022-03-02 04:06] LABS: Hematocrit 31.9 % (36.0-46.0); Mean Corpuscular Hgb Conc. 33.6 g/dL (32.0-36.0); Mean Corpuscular Volume 98.2 fL (80.0-100.0); Red Cell Distribution Width 13.7 % (11.8-14.3)
[2022-03-02 04:21] LABS: Albumin 1.5 g/dL (3.4-5.0); Calcium 6.4 mg/dL (8.5-10.1); Magnesium 1.3 mg/dL (1.6-2.6); Potassium 3.1 mmol/L (3.5-5.1)
[2022-03-02 04:28] LABS: BUN/Creatinine Ratio 17.8; Bilirubin, Total 1.9 mg/dL (0.2-1.0); Phosphorus 1.8 mg/dL (2.5-4.90); Total Protein 5.3 g/dL (6.4-8.2)
[2022-03-02 04:47] LABS: Basophils % (manual) 0 (0.0-2.0); Promyelocytes % 0; Reactive Lymphocytes 0
[2022-03-02 04:48] LABS: Blast Cells 0
[2022-03-02 04:55] LABS: Band Neutrophils % (manual) 10; Eosinophils % (manual) 2 (0-7); Lymphocytes % (manual) 3 (10.0-50.0); Metamyelocytes % 3; Monocytes % (manual) 7 (0-12); Myelocytes % 2
[2022-03-02] MEDS: MIDAZOLAM DRIP 50 mg/50mL 50 ML IV SCH ×3 (05:36→22:02)
[2022-03-02] MEDS: SODIUM CHLORIDE 0.9% 1,000 ML IV SCH ×2 (06:21→17:33)
[2022-03-02 07:39] LABS: BUN/Creatinine Ratio 18.2; Calcium 6.6 mg/dL (8.5-10.1); Potassium 3.3 mmol/L (3.5-5.1)
[2022-03-02] MEDS: THIAMINE 100mg/ml INJ (200mg/2ml VIAL) IV SCH (09:59)
[2022-03-02] MEDS: AMIODARONE HCL 200 MG TAB GT SCH ×2 (09:59→22:04)
[2022-03-02] MEDS: PANTOPRAZOLE 40 MG/10 ML VIAL INJ IV SCH (10:00)
[2022-03-02] MEDS ORDERED: MAGNESIUM SULFATE 1GM/100ML 100 ML IV ONE (10:00)
[2022-03-02] MEDS: MEROPENEM 500MG IVPB 50 ML IV SCH ×2 (10:04→22:04)
[2022-03-02] MEDS ORDERED: CALCIUM GLUC 1,000mg/50ml-NS 50 ML IV ONE (11:00)
[2022-03-02] MEDS: VASOPRESSIN 50 UNITS in D5W 5% 247.5 ML IV SCH (11:30)
[2022-03-02] MEDS ORDERED: POTASSIUM PHOSPHATE 22 MEQ in SODIUM CHL 0.9% 100 ML IV ONE (12:00)
[2022-03-02] MEDS: fentaNYL Drip 2500mCg/250mlNS 250 ML IV SCH (13:40)
[2022-03-02 13:58] LABS: Calcium 6.6 mg/dL (8.5-10.1); Magnesium 1.5 mg/dL (1.6-2.6); Potassium 3.1 mmol/L (3.5-5.1)
[2022-03-02] MEDS ORDERED: POTASSIUM EFFERVESENT TAB 25 MEQ GT ONE (14:30)
[2022-03-02] MEDS: NOREPINEPHRINE BITARTRATE 32 MG in SODIUM CHL 0.9% 218 ML IV SCH (17:30)
[2022-03-02] MEDS: InsuLIN R (HUMAN) 100 UNITS in SODIUM CHL 0.9% 99 ML IV SCH (17:37)
[2022-03-02 19:35] LABS: BUN/Creatinine Ratio 19.5; Calcium 7.1 mg/dL (8.5-10.1); Magnesium 1.5 mg/dL (1.6-2.6)
[2022-03-02 19:54] LABS: Potassium 2.9 mmol/L (3.5-5.1)
[2022-03-02] MEDS ORDERED: TPN PER PHARMACY IV NR ×7 (20:00)
[2022-03-02 20:01] LABS: Red Cell Distribution Width 13.8 % (11.8-14.3)
[2022-03-02 20:03] LABS: Hematocrit 32.9 % (36.0-46.0); Hemoglobin 10.9 g/dL (12.2-16.2); Mean Corpuscular Hemoglobin 32.8 pg (28.0-32.0); Mean Corpuscular Hgb Conc. 33.3 g/dL (32.0-36.0); Mean Corpuscular Volume 98.5 fL (80.0-100.0); Red Blood Cells 3.34 10^6/uL (4.0-5.20); White Blood Cell 9.5 10^3/uL (4.4-10.8)
[2022-03-02 20:06] LABS: Basophils % (manual) 0 (0.0-2.0); Blast Cells 0; Eosinophils % (manual) 0 (0-7); Metamyelocytes % 0; Myelocytes % 0; Promyelocytes % 0; Reactive Lymphocytes 0
[2022-03-02] MEDS: POTASSIUM CHL 20MEQ/100ML 100 ML IV SCH ×2 (20:07→21:17)
[2022-03-02 20:20] LABS: Band Neutrophils % (manual) 13; Lymphocytes % (manual) 26 (10.0-50.0); Monocytes % (manual) 5 (0-12)
[2022-03-03] VITALS (104 sets, daily range): BP systolic 86–154; BP diastolic 53–95
[2022-03-03] MEDS: ACCU-CHEK COMFORT CURVE STRIP VI SCH ×16 (00:03→22:30)
[2022-03-03 00:11] LABS: BUN/Creatinine Ratio 19.8; Calcium 6.8 mg/dL (8.5-10.1); Potassium 3.2 mmol/L (3.5-5.1)
[2022-03-03] MEDS: InsuLIN R (HUMAN) 100 UNITS in SODIUM CHL 0.9% 99 ML IV SCH ×2 (02:15→22:55)
[2022-03-03 02:36] LABS: BUN/Creatinine Ratio 21.1; Calcium 7.2 mg/dL (8.5-10.1)
[2022-03-03 02:43] LABS: Potassium 2.9 mmol/L (3.5-5.1)
[2022-03-03] MEDS: PROPOFOL 100 ML IV SCH (02:45)
[2022-03-03] MEDS: fentaNYL Drip 2500mCg/250mlNS 250 ML IV SCH (02:58)
[2022-03-03] MEDS: EPINEPHrine HCL 250 ML IV SCH (03:00)
[2022-03-03] MEDS: SODIUM CHLORIDE 0.9% 1,000 ML IV SCH ×2 (03:05→12:45)
[2022-03-03 03:08] LABS: Hemoglobin 9.9 g/dL (12.2-16.2)
[2022-03-03 03:09] LABS: Hematocrit 28.9 % (36.0-46.0); Mean Corpuscular Hemoglobin 34.1 pg (28.0-32.0); Mean Corpuscular Hgb Conc. 34.1 g/dL (32.0-36.0); Mean Corpuscular Volume 100.1 fL (80.0-100.0); Red Blood Cells 2.89 10^6/uL (4.0-5.20); Red Cell Distribution Width 14.1 % (11.8-14.3); White Blood Cell 9.5 10^3/uL (4.4-10.8)
[2022-03-03 03:26] LABS: Albumin 1.3 g/dL (3.4-5.0); Calcium 6.6 mg/dL (8.5-10.1); Magnesium 1.2 mg/dL (1.6-2.6)
[2022-03-03 03:37] LABS: BUN/Creatinine Ratio 20.4; Bilirubin, Direct 1.6 mg/dL (0-0.2); Bilirubin, Total 2.1 mg/dL (0.2-1.0); Phosphorus 1.5 mg/dL (2.5-4.90); Total Protein 4.5 g/dL (6.4-8.2)
[2022-03-03] MEDS: MIDAZOLAM DRIP 50 mg/50mL 50 ML IV SCH ×3 (03:46→16:11)
[2022-03-03 03:59] LABS: Basophils % (manual) 0 (0.0-2.0); Blast Cells 0; Promyelocytes % 0; Reactive Lymphocytes 0
[2022-03-03 04:04] LABS: Band Neutrophils % (manual) 10; Eosinophils % (manual) 2 (0-7); Lymphocytes % (manual) 15 (10.0-50.0); Metamyelocytes % 2; Monocytes % (manual) 10 (0-12); Myelocytes % 1
[2022-03-03] MEDS: POTASSIUM CHL 20MEQ/100ML 100 ML IV SCH ×4 (06:23→19:53)
[2022-03-03] MEDS: MAGNESIUM SULFATE 1GM/100ML 100 ML IV SCH ×2 (06:25→09:10)
[2022-03-03] MEDS ORDERED: POTASSIUM PHOSPHATE 44 MEQ in D5W 5% 250 ML IV ONE (09:30)
[2022-03-03] MEDS: AMIODARONE HCL 200 MG TAB GT SCH ×2 (10:15→22:46)
[2022-03-03] MEDS: PANTOPRAZOLE 40 MG/10 ML VIAL INJ IV SCH (10:16)
[2022-03-03] MEDS: MEROPENEM 500MG IVPB 50 ML IV SCH ×2 (10:17→22:47)
[2022-03-03] MEDS: THIAMINE 100mg/ml INJ (200mg/2ml VIAL) IV SCH (10:17)
[2022-03-03] MEDS ORDERED: POTASSIUM CHL 20MEQ/100ML 100 ML IV ONE (10:30)
[2022-03-03 10:56] LABS: Calcium 7.2 mg/dL (8.5-10.1); Potassium 3.5 mmol/L (3.5-5.1)
[2022-03-03 10:59] LABS: BUN/Creatinine Ratio 22.3
[2022-03-03] MEDS: VASOPRESSIN 50 UNITS in D5W 5% 247.5 ML IV SCH (11:30)
[2022-03-03] MEDS: PHENYLEPHRINE INJ 80 MG in SODIUM CHL 0.9% 242 ML IV SCH (11:45)
[2022-03-03] MEDS ORDERED: VANCOMYCIN 1GM/250ML 250 ML IV ONE (14:30)
[2022-03-03 14:36] LABS: BUN/Creatinine Ratio 22.1; Calcium 7.1 mg/dL (8.5-10.1); Potassium 3.4 mmol/L (3.5-5.1)
[2022-03-03] MEDS: NOREPINEPHRINE BITARTRATE 32 MG in SODIUM CHL 0.9% 218 ML IV SCH (15:31)
[2022-03-03] MEDS: SOD CHL 0.45% 1,000 ML IV SCH (17:31)
[2022-03-03 18:59] LABS: BUN/Creatinine Ratio 24.5; Calcium 7.2 mg/dL (8.5-10.1); Potassium 3.4 mmol/L (3.5-5.1)
[2022-03-03] MEDS ORDERED: TPN PER PHARMACY IV NR ×7 (20:00)
[2022-03-03] MEDS ORDERED: SODIUM CHLORIDE 0.9% 1,000 ML IV SCH (20:00)
[2022-03-03 20:12] LABS: Urine Bacteria NONE SEEN /hpf (None Seen); Urine Blood 1+ /uL (Negative); Urine Specific Gravity 1.011 (1.001-1.035); Urine WBC 12 /hpf (0 - 5)
[2022-03-03 20:32] LABS: Protein, Urine 48.3 mg/dL (0.0-11.9)
[2022-03-04] VITALS (87 sets, daily range): BP systolic 24–146; BP diastolic 40–87
[2022-03-04] MEDS: ACCU-CHEK COMFORT CURVE STRIP VI SCH ×10 (00:51→23:59)
[2022-03-04] MEDS: InsuLIN R (HUMAN) 100 UNITS in SODIUM CHL 0.9% 99 ML IV SCH ×2 (00:52→04:08)
[2022-03-04 01:21] LABS: BUN/Creatinine Ratio 24.8; Calcium 7.3 mg/dL (8.5-10.1); Potassium 3.7 mmol/L (3.5-5.1)
[2022-03-04] MEDS: SOD CHL 0.45% 1,000 ML IV SCH ×3 (03:53→15:38)
[2022-03-04 04:43] LABS: Hemoglobin 9.3 g/dL (12.2-16.2)
[2022-03-04 04:44] LABS: Hematocrit 26.6 % (36.0-46.0); Mean Corpuscular Hemoglobin 33.8 pg (28.0-32.0); Mean Corpuscular Hgb Conc. 34.9 g/dL (32.0-36.0); Mean Corpuscular Volume 96.8 fL (80.0-100.0); Red Blood Cells 2.75 10^6/uL (4.0-5.20); Red Cell Distribution Width 14.1 % (11.8-14.3); White Blood Cell 12.2 10^3/uL (4.4-10.8)
[2022-03-04 04:46] LABS: Albumin 1.2 g/dL (3.4-5.0); Calcium 6.9 mg/dL (8.5-10.1); Magnesium 1.5 mg/dL (1.6-2.6); Potassium 3.7 mmol/L (3.5-5.1)
[2022-03-04 04:50] LABS: BUN/Creatinine Ratio 23.2; Bilirubin, Total 1.9 mg/dL (0.2-1.0); Phosphorus 2.8 mg/dL (2.5-4.90); Total Protein 4.8 g/dL (6.4-8.2)
[2022-03-04 04:55] LABS: Basophils % (manual) 0 (0.0-2.0); Blast Cells 0; Metamyelocytes % 0; Promyelocytes % 0; Reactive Lymphocytes 0
[2022-03-04 05:37] LABS: Band Neutrophils % (manual) 11; Eosinophils % (manual) 6 (0-7); Myelocytes % 2
[2022-03-04 05:38] LABS: Lymphocytes % (manual) 13 (10.0-50.0); Monocytes % (manual) 13 (0-12)
[2022-03-04] MEDS ORDERED: DEXTROSE (50%) 50ML SYRG IV PRN (09:00)
[2022-03-04] MEDS: MAGNESIUM SULFATE 1GM/100ML 100 ML IV SCH ×4 (09:48→11:20)
[2022-03-04] MEDS: PANTOPRAZOLE 40 MG/10 ML VIAL INJ IV SCH (10:06)
[2022-03-04] MEDS: AMIODARONE HCL 200 MG TAB GT SCH ×2 (10:12→21:47)
[2022-03-04] MEDS: THIAMINE 100mg/ml INJ (200mg/2ml VIAL) IV SCH (10:12)
[2022-03-04] MEDS: MEROPENEM 500MG IVPB 50 ML IV SCH ×2 (10:13→18:05)
[2022-03-04] MEDS: VASOPRESSIN 50 UNITS in D5W 5% 247.5 ML IV SCH (11:30)
[2022-03-04] MEDS: PHENYLEPHRINE INJ 80 MG in SODIUM CHL 0.9% 242 ML IV SCH (11:45)
[2022-03-04] MEDS: InsuLIN REG 1unit/0.01ml Soln (100units/ml) SC SCH ×3 (12:13→21:51)
[2022-03-04] MEDS: VANCOMYCIN 1GM/250ML 250 ML IV SCH ×2 (13:06→23:57)
[2022-03-04] MEDS: MIDAZOLAM DRIP 50 mg/50mL 50 ML IV SCH (13:06)
[2022-03-04] MEDS: fentaNYL Drip 2500mCg/250mlNS 250 ML IV SCH (15:40)
[2022-03-04] MEDS: NOREPINEPHRINE BITARTRATE 32 MG in SODIUM CHL 0.9% 218 ML IV SCH (18:07)
[2022-03-04] MEDS ORDERED: TPN PER PHARMACY IV NR ×7 (20:00)
[2022-03-04] MEDS: EPINEPHrine HCL 250 ML IV SCH (21:45)
[2022-03-04] MEDS: PROPOFOL 100 ML IV SCH (21:46)
[2022-03-04] MEDS: INSULIN LANTUS (GLARGINE) 1 /0.01ml (100units/ml) SC SCH (21:48)
[2022-03-05] VITALS (98 sets, daily range): BP systolic 73–159; BP diastolic 43–82
[2022-03-05] MEDS: InsuLIN REG 1unit/0.01ml Soln (100units/ml) SC SCH ×6 (00:04→22:54)
[2022-03-05] MEDS: PROPOFOL 100 ML IV SCH (02:45)
[2022-03-05] MEDS: EPINEPHrine HCL 250 ML IV SCH (03:00)
[2022-03-05] MEDS: MEROPENEM 500MG IVPB 50 ML IV SCH (04:02)
[2022-03-05] MEDS: ACCU-CHEK COMFORT CURVE STRIP VI SCH ×5 (04:03→22:46)
[2022-03-05] MEDS: fentaNYL Drip 2500mCg/250mlNS 250 ML IV SCH ×2 (04:05→19:45)
[2022-03-05 05:23] LABS: Albumin 1.2 g/dL (3.4-5.0); Calcium 7.5 mg/dL (8.5-10.1); Magnesium 1.8 mg/dL (1.6-2.6); Potassium 3.6 mmol/L (3.5-5.1)
[2022-03-05 05:26] LABS: Hematocrit 25.8 % (36.0-46.0); Hemoglobin 8.8 g/dL (12.2-16.2); Mean Corpuscular Hemoglobin 33.5 pg (28.0-32.0); Mean Corpuscular Hgb Conc. 34.2 g/dL (32.0-36.0); Red Blood Cells 2.63 10^6/uL (4.0-5.20); Red Cell Distribution Width 13.8 % (11.8-14.3); White Blood Cell 11.8 10^3/uL (4.4-10.8)
[2022-03-05 05:29] LABS: BUN/Creatinine Ratio 27.1; Bilirubin, Direct 0.9 mg/dL (0-0.2); Bilirubin, Total 1.2 mg/dL (0.2-1.0); Phosphorus 3.2 mg/dL (2.5-4.90); Total Protein 4.8 g/dL (6.4-8.2)
[2022-03-05 05:33] LABS: Band Neutrophils % (manual) 0; Basophils % (manual) 0 (0.0-2.0); Blast Cells 0; Promyelocytes % 0; Reactive Lymphocytes 0
[2022-03-05 08:33] LABS: Eosinophils % (manual) 1 (0-7); Lymphocytes % (manual) 8 (10.0-50.0); Metamyelocytes % 1; Monocytes % (manual) 18 (0-12); Myelocytes % 1
[2022-03-05] MEDS: SOD CHL 0.45% 1,000 ML IV SCH ×2 (09:00→12:57)
[2022-03-05] MEDS: MORPHINE SULF 30 mg ER tab PO SCH ×2 (09:43→22:00)
[2022-03-05] MEDS: PANTOPRAZOLE 40 MG/10 ML VIAL INJ IV SCH (09:51)
[2022-03-05] MEDS: AMIODARONE HCL 200 MG TAB GT SCH ×2 (09:52→22:47)
[2022-03-05] MEDS: levoFLOXacin 500MG 100 ML IV SCH (09:52)
[2022-03-05] MEDS: THIAMINE 100mg/ml INJ (200mg/2ml VIAL) IV SCH (09:52)
[2022-03-05 10:10] LABS: Follicle Stimulating Hormone 10.86 IU/L (SEE BELOW); Leuteinizing Hormone 3.3 IU/L
[2022-03-05] MEDS ORDERED: GASTROGRAFIN 120 ML SOL ONE (10:27)
[2022-03-05] MEDS: VASOPRESSIN 50 UNITS in D5W 5% 247.5 ML IV SCH (11:30)
[2022-03-05] MEDS: PHENYLEPHRINE INJ 80 MG in SODIUM CHL 0.9% 242 ML IV SCH (11:35)
[2022-03-05 13:39] LABS: Mean Corpuscular Hgb Conc. 32.2 g/dL (32.0-36.0); Mean Corpuscular Volume 99.2 fL (80.0-100.0); Red Blood Cells 2.82 10^6/uL (4.0-5.20); Red Cell Distribution Width 13.9 % (11.8-14.3)
[2022-03-05 13:52] LABS: Basophils % (manual) 0 (0.0-2.0); Blast Cells 0; Myelocytes % 0; Promyelocytes % 0; Reactive Lymphocytes 0
[2022-03-05 13:53] LABS: INR 1.18 (0.9-1.15); Partial Thromboplastin Time 26.1 sec (23.6-33.0)
[2022-03-05 13:55] LABS: Band Neutrophils % (manual) 3; Eosinophils % (manual) 2 (0-7); Lymphocytes % (manual) 14 (10.0-50.0); Metamyelocytes % 1; Monocytes % (manual) 12 (0-12)
[2022-03-05] MEDS ORDERED: LORazepam 2MG/ML-1ML VIAL IV ONE (14:45)
[2022-03-05] MEDS ORDERED: LIDOCAINE 1% (LOCAL ANESTH.) PF 5ml SDV ID ONE (18:45)
[2022-03-05] MEDS ORDERED: TPN PER PHARMACY IV NR ×8 (20:00)
[2022-03-05] MEDS: NOREPINEPHRINE BITARTRATE 32 MG in SODIUM CHL 0.9% 218 ML IV SCH (22:45)
[2022-03-05] MEDS: SODIUM CHLOR 0.9% PF (SALINE LOCK) 10ML VIAL/SYR IV SCH (22:47)
[2022-03-05] MEDS: INSULIN LANTUS (GLARGINE) 1 /0.01ml (100units/ml) SC SCH (22:49)
[2022-03-06] VITALS (99 sets, daily range): BP systolic 82–156; BP diastolic 46–86
[2022-03-06] MEDS: ACCU-CHEK COMFORT CURVE STRIP VI SCH ×5 (01:27→18:42)
[2022-03-06] MEDS: InsuLIN REG 1unit/0.01ml Soln (100units/ml) SC SCH ×5 (01:28→18:26)
[2022-03-06] MEDS: EPINEPHrine HCL 250 ML IV SCH (01:29)
[2022-03-06] MEDS: SOD CHL 0.45% 1,000 ML IV SCH ×3 (01:29→20:35)
[2022-03-06 04:19] LABS: Mean Corpuscular Volume 98.8 fL (80.0-100.0); Red Cell Distribution Width 13.7 % (11.8-14.3)
[2022-03-06 04:21] LABS: Hemoglobin 8.5 g/dL (12.2-16.2); Mean Corpuscular Hemoglobin 33.7 pg (28.0-32.0); Mean Corpuscular Hgb Conc. 34.1 g/dL (32.0-36.0); Red Blood Cells 2.53 10^6/uL (4.0-5.20); White Blood Cell 10.3 10^3/uL (4.4-10.8)
[2022-03-06 04:26] LABS: Albumin 1.1 g/dL (3.4-5.0); Basophils % (manual) 0 (0.0-2.0); Blast Cells 0; Calcium 7.3 mg/dL (8.5-10.1); Magnesium 1.5 mg/dL (1.6-2.6); Metamyelocytes % 0; Potassium 3.7 mmol/L (3.5-5.1); Promyelocytes % 0; Reactive Lymphocytes 0
[2022-03-06 04:32] LABS: BUN/Creatinine Ratio 27.4; Bilirubin, Direct 0.7 mg/dL (0-0.2); Bilirubin, Total 1.1 mg/dL (0.2-1.0); Phosphorus 3.5 mg/dL (2.5-4.90); Total Protein 4.6 g/dL (6.4-8.2)
[2022-03-06 05:51] LABS: Band Neutrophils % (manual) 12; Eosinophils % (manual) 1 (0-7); Lymphocytes % (manual) 10 (10.0-50.0); Monocytes % (manual) 8 (0-12); Myelocytes % 1
[2022-03-06] MEDS: THIAMINE 100mg/ml INJ (200mg/2ml VIAL) IV SCH (09:46)
[2022-03-06] MEDS: levoFLOXacin 500MG 100 ML IV SCH (09:46)
[2022-03-06] MEDS: PANTOPRAZOLE 40 MG/10 ML VIAL INJ IV SCH (09:46)
[2022-03-06] MEDS: SODIUM CHLOR 0.9% PF (SALINE LOCK) 10ML VIAL/SYR IV SCH ×2 (09:47→22:01)
[2022-03-06] MEDS: AMIODARONE HCL 200 MG TAB GT SCH ×2 (09:47→22:01)
[2022-03-06] MEDS: MORPHINE SULF 30 mg ER tab PO SCH ×2 (09:47→21:50)
[2022-03-06] MEDS ORDERED: MAGNESIUM SULFATE 1GM/100ML 100 ML IV SCH (11:00)
[2022-03-06] MEDS: VASOPRESSIN 50 UNITS in D5W 5% 247.5 ML IV SCH (11:30)
[2022-03-06] MEDS: PHENYLEPHRINE INJ 80 MG in SODIUM CHL 0.9% 242 ML IV SCH (11:34)
[2022-03-06] MEDS ORDERED: MAGNESIUM SULFATE 1GM/100ML 100 ML IV ONE (11:38)
[2022-03-06] MEDS: MAGNESIUM SULFATE 1GM/100ML 100 ML IV SCH ×2 (11:55→13:12)
[2022-03-06] MEDS ORDERED: DEXTROSE (50%) 50ML SYRG IV PRN (12:00)
[2022-03-06] MEDS ORDERED: LORazepam 2MG/ML-1ML VIAL IV ONE (12:00)
[2022-03-06] MEDS: NOREPINEPHRINE BITARTRATE 32 MG in SODIUM CHL 0.9% 218 ML IV SCH (12:00)
[2022-03-06] MEDS: MIDAZOLAM DRIP 50 mg/50mL 50 ML IV SCH ×2 (12:30→22:43)
[2022-03-06] MEDS ORDERED: TPN PER PHARMACY IV NR ×9 (20:00)
[2022-03-06] MEDS: INSULIN LANTUS (GLARGINE) 1 /0.01ml (100units/ml) SC SCH (22:02)
[2022-03-07] VITALS (99 sets, daily range): BP systolic 72–155; BP diastolic 39–89
[2022-03-07] MEDS: ACCU-CHEK COMFORT CURVE STRIP VI SCH ×4 (00:06→18:00)
[2022-03-07] MEDS: InsuLIN REG 1unit/0.01ml Soln (100units/ml) SC SCH ×4 (00:07→19:03)
[2022-03-07] MEDS: EPINEPHrine HCL 250 ML IV SCH (03:00)
[2022-03-07 04:23] LABS: Hemoglobin 8.7 g/dL (12.2-16.2)
[2022-03-07 04:26] LABS: Mean Corpuscular Hemoglobin 34.9 pg (28.0-32.0); Mean Corpuscular Hgb Conc. 34.9 g/dL (32.0-36.0); Red Cell Distribution Width 13.9 % (11.8-14.3); White Blood Cell 10.8 10^3/uL (4.4-10.8)
[2022-03-07 04:38] LABS: Calcium 7.1 mg/dL (8.5-10.1); Magnesium 1.8 mg/dL (1.6-2.6); Potassium 3.9 mmol/L (3.5-5.1)
[2022-03-07 04:40] LABS: Basophils % (manual) 0 (0.0-2.0); Promyelocytes % 0; Reactive Lymphocytes 0
[2022-03-07 04:41] LABS: Blast Cells 0
[2022-03-07 04:44] LABS: Albumin 1.2 g/dL (3.4-5.0); BUN/Creatinine Ratio 25.8; Phosphorus 3.3 mg/dL (2.5-4.90)
[2022-03-07 05:05] LABS: Band Neutrophils % (manual) 3; Eosinophils % (manual) 2 (0-7); Lymphocytes % (manual) 16 (10.0-50.0); Metamyelocytes % 2; Monocytes % (manual) 5 (0-12); Myelocytes % 1
[2022-03-07] MEDS: SOD CHL 0.45% 1,000 ML IV SCH ×2 (06:08→18:59)
[2022-03-07] MEDS: AMIODARONE HCL 200 MG TAB GT SCH ×2 (11:13→21:29)
[2022-03-07] MEDS: THIAMINE 100mg/ml INJ (200mg/2ml VIAL) IV SCH (11:16)
[2022-03-07] MEDS: levoFLOXacin 500MG 100 ML IV SCH (11:16)
[2022-03-07] MEDS: PANTOPRAZOLE 40 MG/10 ML VIAL INJ IV SCH (11:16)
[2022-03-07] MEDS: MAGNESIUM SULFATE 1GM/100ML 100 ML IV SCH ×2 (11:17→13:16)
[2022-03-07] MEDS: MORPHINE SULF 30 mg ER tab PO SCH ×2 (11:17→21:40)
[2022-03-07] MEDS: SODIUM CHLOR 0.9% PF (SALINE LOCK) 10ML VIAL/SYR IV SCH ×2 (11:17→21:29)
[2022-03-07] MEDS: NOREPINEPHRINE BITARTRATE 32 MG in SODIUM CHL 0.9% 218 ML IV SCH (13:14)
[2022-03-07] MEDS: VASOPRESSIN 50 UNITS in D5W 5% 247.5 ML IV SCH (13:15)
[2022-03-07] MEDS: PHENYLEPHRINE INJ 80 MG in SODIUM CHL 0.9% 242 ML IV SCH (13:15)
[2022-03-07] MEDS ORDERED: EPINEPHrine HCL 0.5 ML NEB NEB ONE (15:05)
[2022-03-07] MEDS ORDERED: EPINEPHrine HCL 0.5 ML NEB ONE (15:08)
[2022-03-07] MEDS: fentaNYL Drip 2500mCg/250mlNS 250 ML IV SCH ×2 (15:13→18:59)
[2022-03-07] MEDS: chlordiazePOXIDE HCL 25 MG CAP PO SCH ×2 (15:14→21:28)
[2022-03-07] MEDS ORDERED: methylPREDNISolone SOD SUCC 40 MG/ML VL IV ONE (15:15)
[2022-03-07] MEDS ORDERED: FUROSEMIDE 20 MG/2 ML VIAL IV ONE (15:15)
[2022-03-07] MEDS ORDERED: ETOMIDATE (2MG/ML) 20ML VIAL IV ONE ×2 (15:57→16:00)
[2022-03-07] MEDS ORDERED: ROCURONIUM 10MG/ML 10ML VIAL IV ONE ×2 (15:57→16:00)
[2022-03-07] MEDS: MIDAZOLAM DRIP 50 mg/50mL 50 ML IV SCH (18:58)
[2022-03-07] MEDS ORDERED: TPN PER PHARMACY IV NR ×9 (20:00)
[2022-03-07] MEDS: INSULIN LANTUS (GLARGINE) 1 /0.01ml (100units/ml) SC SCH (21:36)
[2022-03-08] VITALS (102 sets, daily range): BP systolic 88–146; BP diastolic 52–84
[2022-03-08] MEDS: ACCU-CHEK COMFORT CURVE STRIP VI SCH ×4 (00:09→17:49)
[2022-03-08] MEDS: InsuLIN REG 1unit/0.01ml Soln (100units/ml) SC SCH ×4 (00:11→17:49)
[2022-03-08] MEDS: MIDAZOLAM DRIP 50 mg/50mL 50 ML IV SCH ×2 (02:38→20:43)
[2022-03-08 04:37] LABS: Hemoglobin 8.9 g/dL (12.2-16.2); Red Blood Cells 2.66 10^6/uL (4.0-5.20)
[2022-03-08 04:40] LABS: Hematocrit 26.9 % (36.0-46.0); Mean Corpuscular Hemoglobin 33.5 pg (28.0-32.0); Mean Corpuscular Hgb Conc. 33.2 g/dL (32.0-36.0); Mean Corpuscular Volume 100.9 fL (80.0-100.0); White Blood Cell 16.3 10^3/uL (4.4-10.8)
[2022-03-08 04:46] LABS: Basophils % (manual) 0 (0.0-2.0); Blast Cells 0; Metamyelocytes % 0; Myelocytes % 0; Promyelocytes % 0; Reactive Lymphocytes 0
[2022-03-08 04:55] LABS: Albumin 1.3 g/dL (3.4-5.0); Calcium 7.4 mg/dL (8.5-10.1); Magnesium 2.1 mg/dL (1.6-2.6); Potassium 4.9 mmol/L (3.5-5.1)
[2022-03-08 04:58] LABS: BUN/Creatinine Ratio 31.4; Bilirubin, Total 0.8 mg/dL (0.2-1.0); Phosphorus 4.7 mg/dL (2.5-4.90); Total Protein 5.7 g/dL (6.4-8.2)
[2022-03-08] MEDS: chlordiazePOXIDE HCL 25 MG CAP PO SCH ×3 (06:06→21:54)
[2022-03-08] MEDS: SOD CHL 0.45% 1,000 ML IV SCH ×2 (06:07→17:48)
[2022-03-08 07:33] LABS: Band Neutrophils % (manual) 1; Eosinophils % (manual) 1 (0-7); Lymphocytes % (manual) 8 (10.0-50.0); Monocytes % (manual) 2 (0-12)
[2022-03-08] MEDS: MORPHINE SULF 30 mg ER tab PO SCH ×2 (09:10→22:00)
[2022-03-08] MEDS: AMIODARONE HCL 200 MG TAB GT SCH ×2 (10:12→21:55)
[2022-03-08] MEDS: THIAMINE 100mg/ml INJ (200mg/2ml VIAL) IV SCH (10:12)
[2022-03-08] MEDS: levoFLOXacin 500MG 100 ML IV SCH (10:12)
[2022-03-08] MEDS: PANTOPRAZOLE 40 MG/10 ML VIAL INJ IV SCH (10:13)
[2022-03-08] MEDS: SODIUM CHLOR 0.9% PF (SALINE LOCK) 10ML VIAL/SYR IV SCH ×2 (10:13→21:55)
[2022-03-08 10:48] LABS: Albumin 1.3 g/dL (3.4-5.0); Calcium 7.9 mg/dL (8.5-10.1); Magnesium 2.2 mg/dL (1.6-2.6); Phosphorus 4.7 mg/dL (2.5-4.90); Potassium 4.9 mmol/L (3.5-5.1)
[2022-03-08] MEDS: NOREPINEPHRINE BITARTRATE 32 MG in SODIUM CHL 0.9% 218 ML IV SCH (12:00)
[2022-03-08] MEDS: fentaNYL Drip 2500mCg/250mlNS 250 ML IV SCH (19:49)
[2022-03-08] MEDS ORDERED: TPN PER PHARMACY IV NR ×8 (20:00)
[2022-03-08] MEDS: INSULIN LANTUS (GLARGINE) 1 /0.01ml (100units/ml) SC SCH (21:58)
[2022-03-09] VITALS (107 sets, daily range): BP systolic 89–140; BP diastolic 52–84
[2022-03-09] MEDS: ACCU-CHEK COMFORT CURVE STRIP VI SCH ×5 (00:14→23:21)
[2022-03-09] MEDS: InsuLIN REG 1unit/0.01ml Soln (100units/ml) SC SCH ×5 (00:19→23:21)
[2022-03-09] MEDS: MIDAZOLAM DRIP 50 mg/50mL 50 ML IV SCH ×2 (02:25→05:53)
[2022-03-09] MEDS: SOD CHL 0.45% 1,000 ML IV SCH ×3 (03:00→21:40)
[2022-03-09 03:49] LABS: Basophils # (auto) 0 10 ^3/uL (0-0.2); Basophils % (auto) 0.5 % (0.0-2.0); Eosinophils # (auto) 0.1 10 ^3/uL (0-0.8); Eosinophils % (auto) 1.6 % (0.0-7.0); Hematocrit 25.8 % (36.0-46.0); Hemoglobin 8.7 g/dL (12.2-16.2); Lymphocytes # (auto) 1.6 10 ^3/uL (0.4-5.4); Lymphocytes % (auto) 17.9 % (10.0-50.0); Mean Corpuscular Hemoglobin 33.6 pg (28.0-32.0); Mean Corpuscular Hgb Conc. 33.6 g/dL (32.0-36.0); Mean Corpuscular Volume 100.1 fL (80.0-100.0); Monocytes # (auto) 0.6 10 ^3/uL (0-1.3); Monocytes % (auto) 6.9 % (0.0-12.0); Neutrophils # (auto) 6.7 10 ^3/uL (1.6-8.6); Neutrophils % (auto) 73.1 % (37.0-80.0); Nucleated Red Blood Cells % 0.1 %; Red Blood Cells 2.58 10^6/uL (4.0-5.20); Red Cell Distribution Width 14.2 % (11.8-14.3); White Blood Cell 9.1 10^3/uL (4.4-10.8)
[2022-03-09 04:13] LABS: Albumin 1.3 g/dL (3.4-5.0); Calcium 7.4 mg/dL (8.5-10.1); Magnesium 1.7 mg/dL (1.6-2.6)
[2022-03-09 04:15] LABS: BUN/Creatinine Ratio 33.3
[2022-03-09 04:18] LABS: Bilirubin, Total 0.6 mg/dL (0.2-1.0); Phosphorus 3.3 mg/dL (2.5-4.90); Total Protein 5.2 g/dL (6.4-8.2)
[2022-03-09] MEDS: chlordiazePOXIDE HCL 25 MG CAP PO SCH ×3 (05:30→21:38)
[2022-03-09] MEDS: levoFLOXacin 500MG 100 ML IV SCH (09:54)
[2022-03-09] MEDS: PANTOPRAZOLE 40 MG/10 ML VIAL INJ IV SCH (09:54)
[2022-03-09] MEDS: SODIUM CHLOR 0.9% PF (SALINE LOCK) 10ML VIAL/SYR IV SCH ×2 (09:55→21:10)
[2022-03-09] MEDS: THIAMINE 100mg/ml INJ (200mg/2ml VIAL) IV SCH (09:55)
[2022-03-09] MEDS: MORPHINE SULF 30 mg ER tab PO SCH ×2 (09:55→21:38)
[2022-03-09] MEDS: AMIODARONE HCL 200 MG TAB GT SCH ×2 (09:55→21:38)
[2022-03-09] MEDS ORDERED: FUROSEMIDE 20 MG/2 ML VIAL ONE (10:50)
[2022-03-09] MEDS ORDERED: FUROSEMIDE 20 MG/2 ML VIAL IV ONE (11:00)
[2022-03-09] MEDS ORDERED: MAGNESIUM SULFATE 1GM/100ML 100 ML IV ONE (11:00)
[2022-03-09] MEDS: NOREPINEPHRINE BITARTRATE 32 MG in SODIUM CHL 0.9% 218 ML IV SCH (12:00)
[2022-03-09] MEDS: fentaNYL Drip 2500mCg/250mlNS 250 ML IV SCH (19:45)
[2022-03-09] MEDS ORDERED: TPN PER PHARMACY IV NR ×9 (20:00)
[2022-03-09] MEDS: INSULIN LANTUS (GLARGINE) 1 /0.01ml (100units/ml) SC SCH (21:43)
[2022-03-09] MEDS ORDERED: NOREPINEPHRINE 8 MG/250ML KIT 250 ML IV ONE (21:52)
[2022-03-09] MEDS ORDERED: NOREPINEPHRINE BITARTRATE 6 ML IV ONE (21:52)
[2022-03-10] VITALS (101 sets, daily range): BP systolic 79–143; BP diastolic 49–79
[2022-03-10 03:32] LABS: Basophils # (auto) 0.1 10 ^3/uL (0-0.2); Basophils % (auto) 0.6 % (0.0-2.0); Eosinophils # (auto) 0.2 10 ^3/uL (0-0.8); Hematocrit 28.5 % (36.0-46.0); Hemoglobin 9.3 g/dL (12.2-16.2); Lymphocytes % (auto) 22.9 % (10.0-50.0); Mean Corpuscular Hgb Conc. 32.6 g/dL (32.0-36.0); Mean Corpuscular Volume 104.2 fL (80.0-100.0); Monocytes # (auto) 0.6 10 ^3/uL (0-1.3); Neutrophils # (auto) 5.9 10 ^3/uL (1.6-8.6); Neutrophils % (auto) 67.5 % (37.0-80.0); Nucleated Red Blood Cells % 0.1 %; Red Blood Cells 2.73 10^6/uL (4.0-5.20); Red Cell Distribution Width 15.1 % (11.8-14.3); White Blood Cell 8.7 10^3/uL (4.4-10.8)
[2022-03-10 03:40] LABS: Calcium 8.1 mg/dL (8.5-10.1); Potassium 3.6 mmol/L (3.5-5.1)
[2022-03-10 03:46] LABS: Albumin 1.3 g/dL (3.4-5.0); BUN/Creatinine Ratio 31.3; Bilirubin, Total 0.7 mg/dL (0.2-1.0); Total Protein 5.5 g/dL (6.4-8.2)
[2022-03-10] MEDS: chlordiazePOXIDE HCL 25 MG CAP PO SCH ×3 (05:22→21:10)
[2022-03-10] MEDS: InsuLIN REG 1unit/0.01ml Soln (100units/ml) SC SCH ×4 (05:23→23:15)
[2022-03-10] MEDS: ACCU-CHEK COMFORT CURVE STRIP VI SCH ×4 (05:23→23:15)
[2022-03-10] MEDS: SOD CHL 0.45% 1,000 ML IV SCH ×2 (08:53→11:57)
[2022-03-10] MEDS: PANTOPRAZOLE 40 MG/10 ML VIAL INJ IV SCH (09:54)
[2022-03-10] MEDS: THIAMINE 100mg/ml INJ (200mg/2ml VIAL) IV SCH (09:54)
[2022-03-10] MEDS: levoFLOXacin 500MG 100 ML IV SCH (09:54)
[2022-03-10] MEDS: AMIODARONE HCL 200 MG TAB GT SCH ×2 (09:55→21:10)
[2022-03-10] MEDS: SODIUM CHLOR 0.9% PF (SALINE LOCK) 10ML VIAL/SYR IV SCH ×2 (09:55→21:14)
[2022-03-10] MEDS: MORPHINE SULF 30 mg ER tab PO SCH ×2 (09:55→20:57)
[2022-03-10] MEDS: NOREPINEPHRINE BITARTRATE 32 MG in SODIUM CHL 0.9% 218 ML IV SCH (12:00)
[2022-03-10] MEDS: MIDAZOLAM DRIP 50 mg/50mL 50 ML IV SCH ×2 (12:30→18:23)
[2022-03-10] MEDS: fentaNYL Drip 2500mCg/250mlNS 250 ML IV SCH (14:49)
[2022-03-10] MEDS ORDERED: TPN PER PHARMACY IV NR ×9 (20:00)
[2022-03-10] MEDS: INSULIN LANTUS (GLARGINE) 1 /0.01ml (100units/ml) SC SCH (21:16)
[2022-03-11] VITALS (98 sets, daily range): BP systolic 87–134; BP diastolic 45–78
[2022-03-11 04:35] LABS: Basophils # (auto) 0.1 10 ^3/uL (0-0.2); Basophils % (auto) 0.8 % (0.0-2.0); Eosinophils # (auto) 0.1 10 ^3/uL (0-0.8); Eosinophils % (auto) 1.7 % (0.0-7.0); Hematocrit 26.4 % (36.0-46.0); Hemoglobin 8.9 g/dL (12.2-16.2); Lymphocytes # (auto) 1.8 10 ^3/uL (0.4-5.4); Lymphocytes % (auto) 21.5 % (10.0-50.0); Mean Corpuscular Hemoglobin 34.1 pg (28.0-32.0); Mean Corpuscular Hgb Conc. 33.6 g/dL (32.0-36.0); Mean Corpuscular Volume 101.7 fL (80.0-100.0); Monocytes # (auto) 0.4 10 ^3/uL (0-1.3); Nucleated Red Blood Cells % 0.2 %; Red Blood Cells 2.59 10^6/uL (4.0-5.20); Red Cell Distribution Width 15.7 % (11.8-14.3); White Blood Cell 8.4 10^3/uL (4.4-10.8)
[2022-03-11 04:52] LABS: Albumin 1.3 g/dL (3.4-5.0); Calcium 7.9 mg/dL (8.5-10.1); Magnesium 1.9 mg/dL (1.6-2.6); Potassium 3.5 mmol/L (3.5-5.1)
[2022-03-11 04:56] LABS: BUN/Creatinine Ratio 33.3; Bilirubin, Total 0.7 mg/dL (0.2-1.0); Total Protein 5.5 g/dL (6.4-8.2)
[2022-03-11] MEDS: SOD CHL 0.45% 1,000 ML IV SCH ×2 (05:10→14:35)
[2022-03-11] MEDS: InsuLIN REG 1unit/0.01ml Soln (100units/ml) SC SCH ×3 (05:11→17:26)
[2022-03-11] MEDS: ACCU-CHEK COMFORT CURVE STRIP VI SCH ×3 (05:11→17:27)
[2022-03-11] MEDS: chlordiazePOXIDE HCL 25 MG CAP PO SCH ×3 (05:11→21:08)
[2022-03-11] MEDS: MORPHINE SULF 30 mg ER tab PO SCH ×2 (07:36→21:08)
[2022-03-11] MEDS: SODIUM CHLOR 0.9% PF (SALINE LOCK) 10ML VIAL/SYR IV SCH ×2 (07:36→21:08)
[2022-03-11] MEDS: THIAMINE 100mg/ml INJ (200mg/2ml VIAL) IV SCH (08:53)
[2022-03-11] MEDS: PANTOPRAZOLE 40 MG/10 ML VIAL INJ IV SCH (08:53)
[2022-03-11] MEDS: AMIODARONE HCL 200 MG TAB GT SCH ×2 (08:53→21:08)
[2022-03-11] MEDS: fentaNYL Drip 2500mCg/250mlNS 250 ML IV SCH (08:54)
[2022-03-11] MEDS: levoFLOXacin 500MG 100 ML IV SCH (08:54)
[2022-03-11] MEDS ORDERED: POTASSIUM CHL 20MEQ/100ML 100 ML IV ONE (10:17)
[2022-03-11] MEDS: NOREPINEPHRINE BITARTRATE 32 MG in SODIUM CHL 0.9% 218 ML IV SCH (12:00)
[2022-03-11] MEDS ORDERED: TPN PER PHARMACY IV NR ×9 (20:00)
[2022-03-11] MEDS: INSULIN LANTUS (GLARGINE) 1 /0.01ml (100units/ml) SC SCH (21:10)
[2022-03-12] VITALS (89 sets, daily range): BP systolic 80–172; BP diastolic 46–83
[2022-03-12] MEDS: InsuLIN REG 1unit/0.01ml Soln (100units/ml) SC SCH ×4 (00:29→17:54)
[2022-03-12] MEDS: SOD CHL 0.45% 1,000 ML IV SCH ×3 (01:21→21:37)
[2022-03-12 03:44] LABS: Basophils # (auto) 0.1 10 ^3/uL (0-0.2); Eosinophils # (auto) 0.2 10 ^3/uL (0-0.8); Eosinophils % (auto) 2.3 % (0.0-7.0); Hematocrit 25.9 % (36.0-46.0); Hemoglobin 8.5 g/dL (12.2-16.2); Lymphocytes # (auto) 1.5 10 ^3/uL (0.4-5.4); Lymphocytes % (auto) 17.9 % (10.0-50.0); Mean Corpuscular Hemoglobin 33.5 pg (28.0-32.0); Mean Corpuscular Hgb Conc. 32.9 g/dL (32.0-36.0); Mean Corpuscular Volume 101.7 fL (80.0-100.0); Monocytes # (auto) 0.5 10 ^3/uL (0-1.3); Monocytes % (auto) 5.5 % (0.0-12.0); Neutrophils # (auto) 6.1 10 ^3/uL (1.6-8.6); Neutrophils % (auto) 73.3 % (37.0-80.0); Red Blood Cells 2.54 10^6/uL (4.0-5.20); White Blood Cell 8.3 10^3/uL (4.4-10.8)
[2022-03-12 04:06] LABS: Albumin 1.4 g/dL (3.4-5.0); BUN/Creatinine Ratio 35.1; Magnesium 1.9 mg/dL (1.6-2.6); Potassium 3.7 mmol/L (3.5-5.1)
[2022-03-12 04:09] LABS: Bilirubin, Total 0.7 mg/dL (0.2-1.0); Phosphorus 3.5 mg/dL (2.5-4.90); Total Protein 5.4 g/dL (6.4-8.2)
[2022-03-12] MEDS: ACCU-CHEK COMFORT CURVE STRIP VI SCH ×4 (06:06→17:53)
[2022-03-12] MEDS: chlordiazePOXIDE HCL 25 MG CAP PO SCH ×3 (06:06→22:00)
[2022-03-12] MEDS: MORPHINE SULF 30 mg ER tab PO SCH ×2 (07:36→22:00)
[2022-03-12] MEDS: SODIUM CHLOR 0.9% PF (SALINE LOCK) 10ML VIAL/SYR IV SCH ×2 (07:36→22:35)
[2022-03-12] MEDS: THIAMINE 100mg/ml INJ (200mg/2ml VIAL) IV SCH (08:34)
[2022-03-12] MEDS: AMIODARONE HCL 200 MG TAB GT SCH ×2 (08:34→22:00)
[2022-03-12] MEDS: PANTOPRAZOLE 40 MG/10 ML VIAL INJ IV SCH (08:34)
[2022-03-12] MEDS: levoFLOXacin 500MG 100 ML IV SCH (08:34)
[2022-03-12] MEDS: NOREPINEPHRINE BITARTRATE 32 MG in SODIUM CHL 0.9% 218 ML IV SCH (12:00)
[2022-03-12] MEDS ORDERED: LORazepam 2MG/ML-1ML VIAL IV ONE (12:00)
[2022-03-12] MEDS: MIDAZOLAM DRIP 50 mg/50mL 50 ML IV SCH (12:30)
[2022-03-12] MEDS: fentaNYL Drip 2500mCg/250mlNS 250 ML IV SCH (17:37)
[2022-03-12] MEDS ORDERED: TPN PER PHARMACY IV NR ×9 (20:00)
[2022-03-12] MEDS: INSULIN LANTUS (GLARGINE) 1 /0.01ml (100units/ml) SC SCH (22:40)
[2022-03-13] VITALS (69 sets, daily range): BP systolic 76–153; BP diastolic 42–121
[2022-03-13] MEDS: ACCU-CHEK COMFORT CURVE STRIP VI SCH ×5 (00:55→21:32)
[2022-03-13] MEDS: InsuLIN REG 1unit/0.01ml Soln (100units/ml) SC SCH ×5 (00:56→21:31)
[2022-03-13 04:30] LABS: Albumin 1.4 g/dL (3.4-5.0); Calcium 8.1 mg/dL (8.5-10.1); Magnesium 1.9 mg/dL (1.6-2.6); Potassium 4.4 mmol/L (3.5-5.1)
[2022-03-13 04:34] LABS: BUN/Creatinine Ratio 32.8; Bilirubin, Total 0.6 mg/dL (0.2-1.0); Phosphorus 4.8 mg/dL (2.5-4.90)
[2022-03-13] MEDS: chlordiazePOXIDE HCL 25 MG CAP PO SCH ×3 (05:54→22:00)
[2022-03-13] MEDS: SOD CHL 0.45% 1,000 ML IV SCH (05:54)
[2022-03-13] MEDS: LORazepam 2MG/ML-1ML VIAL IV PRN ×3 (08:24→23:51)
[2022-03-13] MEDS: SODIUM CHLORIDE 0.9% 1,000 ML IV SCH ×2 (08:26→18:15)
[2022-03-13] MEDS: PANTOPRAZOLE 40 MG/10 ML VIAL INJ IV SCH (09:46)
[2022-03-13] MEDS: THIAMINE 100mg/ml INJ (200mg/2ml VIAL) IV SCH (09:47)
[2022-03-13] MEDS: levoFLOXacin 500MG 100 ML IV SCH (09:47)
[2022-03-13] MEDS: AMIODARONE HCL 200 MG TAB GT SCH ×2 (09:53→22:00)
[2022-03-13] MEDS: MORPHINE SULF 30 mg ER tab PO SCH ×2 (09:53→22:00)
[2022-03-13] MEDS: SODIUM CHLOR 0.9% PF (SALINE LOCK) 10ML VIAL/SYR IV SCH ×2 (09:54→22:00)
[2022-03-13] MEDS: NOREPINEPHRINE BITARTRATE 32 MG in SODIUM CHL 0.9% 218 ML IV SCH (12:00)
[2022-03-13] MEDS: MIDAZOLAM DRIP 50 mg/50mL 50 ML IV SCH (12:30)
[2022-03-13] MEDS: fentaNYL Drip 2500mCg/250mlNS 250 ML IV SCH (19:45)
[2022-03-13] MEDS ORDERED: TPN PER PHARMACY IV NR ×8 (20:00)
[2022-03-13] MEDS: INSULIN LANTUS (GLARGINE) 1 /0.01ml (100units/ml) SC SCH ×2 (21:32→22:00)
[2022-03-14] VITALS (54 sets, daily range): BP systolic 81–170; BP diastolic 33–96
[2022-03-14] MEDS: SODIUM CHLORIDE 0.9% 1,000 ML IV SCH (04:15)
[2022-03-14 04:21] LABS: Albumin 1.6 g/dL (3.4-5.0); Calcium 8.1 mg/dL (8.5-10.1); Magnesium 2.1 mg/dL (1.6-2.6); Potassium 3.9 mmol/L (3.5-5.1)
[2022-03-14 04:24] LABS: BUN/Creatinine Ratio 32.7; Bilirubin, Total 0.6 mg/dL (0.2-1.0); Phosphorus 3.9 mg/dL (2.5-4.90); Total Protein 6.2 g/dL (6.4-8.2)
[2022-03-14] MEDS: InsuLIN REG 1unit/0.01ml Soln (100units/ml) SC SCH ×5 (06:00→23:54)
[2022-03-14] MEDS: chlordiazePOXIDE HCL 25 MG CAP PO SCH (06:00)
[2022-03-14] MEDS: ACCU-CHEK COMFORT CURVE STRIP VI SCH ×4 (06:25→23:53)
[2022-03-14] MEDS: LORazepam 2MG/ML-1ML VIAL IV PRN ×3 (08:07→23:29)
[2022-03-14 08:54] LABS: Basophils # (auto) 0 10 ^3/uL (0-0.2); Basophils % (auto) 0.5 % (0.0-2.0); Eosinophils # (auto) 0.1 10 ^3/uL (0-0.8); Eosinophils % (auto) 1.5 % (0.0-7.0); Hematocrit 26.4 % (36.0-46.0); Hemoglobin 8.9 g/dL (12.2-16.2); Lymphocytes % (auto) 12.1 % (10.0-50.0); Mean Corpuscular Hemoglobin 33.6 pg (28.0-32.0); Mean Corpuscular Hgb Conc. 33.5 g/dL (32.0-36.0); Mean Corpuscular Volume 100.2 fL (80.0-100.0); Monocytes # (auto) 0.4 10 ^3/uL (0-1.3); Monocytes % (auto) 4.9 % (0.0-12.0); Neutrophils # (auto) 6.8 10 ^3/uL (1.6-8.6); Red Blood Cells 2.64 10^6/uL (4.0-5.20); Red Cell Distribution Width 15.4 % (11.8-14.3); White Blood Cell 8.5 10^3/uL (4.4-10.8)
[2022-03-14] MEDS: MORPHINE SULF 30 mg ER tab PO SCH (10:00)
[2022-03-14] MEDS: PANTOPRAZOLE 40 MG/10 ML VIAL INJ IV SCH (10:38)
[2022-03-14] MEDS: AMIODARONE HCL 200 MG TAB GT SCH ×2 (10:38→22:26)
[2022-03-14] MEDS: levoFLOXacin 500MG 100 ML IV SCH (10:38)
[2022-03-14] MEDS: THIAMINE 100mg/ml INJ (200mg/2ml VIAL) IV SCH (10:39)
[2022-03-14] MEDS: SODIUM CHLOR 0.9% PF (SALINE LOCK) 10ML VIAL/SYR IV SCH ×2 (10:40→22:26)
[2022-03-14] MEDS: NOREPINEPHRINE BITARTRATE 32 MG in SODIUM CHL 0.9% 218 ML IV SCH (12:00)
[2022-03-14] MEDS: MIDAZOLAM DRIP 50 mg/50mL 50 ML IV SCH (12:30)
[2022-03-14] MEDS: HYDROcodone-ACET 10/325MG TAB PO PRN (18:30)
[2022-03-14] MEDS ORDERED: TPN PER PHARMACY IV NR ×9 (20:00)
[2022-03-14] MEDS: INSULIN LANTUS (GLARGINE) 1 /0.01ml (100units/ml) SC SCH (22:30)
[2022-03-15] MEDS: HYDROcodone-ACET 10/325MG TAB PO PRN ×2 (01:18→09:30)
[2022-03-15] MEDS: LORazepam 2MG/ML-1ML VIAL IV PRN (05:02)
[2022-03-15 05:20] VITALS: BP 95/57
[2022-03-15] MEDS: ACCU-CHEK COMFORT CURVE STRIP VI SCH ×3 (06:02→18:14)
[2022-03-15] MEDS: InsuLIN REG 1unit/0.01ml Soln (100units/ml) SC SCH ×4 (06:18→18:00)
[2022-03-15 07:03] LABS: Albumin 1.7 g/dL (3.4-5.0); BUN/Creatinine Ratio 29.3; Bilirubin, Total 0.8 mg/dL (0.2-1.0); Calcium 8.4 mg/dL (8.5-10.1); Magnesium 2.1 mg/dL (1.6-2.6); Phosphorus 3.4 mg/dL (2.5-4.90); Total Protein 6.2 g/dL (6.4-8.2)
[2022-03-15 08:58] VITALS: BP 103/60
[2022-03-15] MEDS: AMIODARONE HCL 200 MG TAB GT SCH (09:30)
[2022-03-15] MEDS: PANTOPRAZOLE 40 MG/10 ML VIAL INJ IV SCH (09:31)
[2022-03-15] MEDS: levoFLOXacin 500MG 100 ML IV SCH (09:31)
[2022-03-15] MEDS: THIAMINE 100mg/ml INJ (200mg/2ml VIAL) IV SCH (09:31)
[2022-03-15] MEDS: SODIUM CHLOR 0.9% PF (SALINE LOCK) 10ML VIAL/SYR IV SCH ×2 (09:32→22:50)
[2022-03-15 12:45] VITALS: BP 100/61
[2022-03-15 17:00] VITALS: BP 118/69
[2022-03-15] MEDS ORDERED: TPN PER PHARMACY IV NR ×9 (20:00)
[2022-03-15 22:00] VITALS: BP 124/74
[2022-03-15] MEDS: AMIODARONE HCL 200 MG TAB PO SCH (22:50)
[2022-03-15] MEDS: INSULIN LANTUS (GLARGINE) 1 /0.01ml (100units/ml) SC SCH (22:50)
[2022-03-16] MEDS: ACCU-CHEK COMFORT CURVE STRIP VI SCH ×4 (00:37→18:05)
[2022-03-16] MEDS: InsuLIN REG 1unit/0.01ml Soln (100units/ml) SC SCH ×4 (01:01→18:06)
[2022-03-16 05:00] VITALS: BP 135/60
[2022-03-16 05:35] LABS: Albumin 1.8 g/dL (3.4-5.0); Magnesium 1.8 mg/dL (1.6-2.6); Potassium 3.5 mmol/L (3.5-5.1)
[2022-03-16 05:37] LABS: BUN/Creatinine Ratio 23.4
[2022-03-16 05:40] LABS: Bilirubin, Total 0.6 mg/dL (0.2-1.0); Phosphorus 3.8 mg/dL (2.5-4.90); Total Protein 6.3 g/dL (6.4-8.2)
[2022-03-16 09:00] VITALS: BP 122/76
[2022-03-16] MEDS: THIAMINE 100mg/ml INJ (200mg/2ml VIAL) IV SCH (09:04)
[2022-03-16] MEDS: PANTOPRAZOLE 40 MG/10 ML VIAL INJ IV SCH (09:05)
[2022-03-16] MEDS: levoFLOXacin 500MG 100 ML IV SCH (09:05)
[2022-03-16] MEDS: AMIODARONE HCL 200 MG TAB PO SCH (09:06)
[2022-03-16] MEDS: SODIUM CHLOR 0.9% PF (SALINE LOCK) 10ML VIAL/SYR IV SCH (09:06)
[2022-03-16 13:00] VITALS: BP 115/69
[2022-03-16 17:00] VITALS: BP 122/75
[2022-03-16] MEDS ORDERED: TPN PER PHARMACY IV NR ×10 (20:00)
== END 2022-03-16 19:15 | disposition short-term general hospital (02) | DRG 870 ==
LOC: ER 22:25 → EDBD 22:25 → OVERFLOW 02-28 02:51 → ICU WEST 02-28 11:03 → TELE-WESTW 03-14 19:20
PROVIDERS: ADMIT Nurse Practitioner; ATTEND Family Medicine
PROC: 5A1955Z Respiratory Ventilation, Greater than 96 Consecutive Hours (ICD-10-PCS; principal; 2022-02-27)
PROC: 0BH17EZ Insertion of Endotracheal Airway into Trachea, Via Natural or Artificial Opening (ICD-10-PCS; 2022-02-27)
PROC: 06HM33Z Insertion of Infusion Device into Right Femoral Vein, Percutaneous Approach (ICD-10-PCS; 2022-02-27)
PROC: 02HV33Z Insertion of Infusion Device into Superior Vena Cava, Percutaneous Approach (ICD-10-PCS; 2022-03-05)
PROC: B548ZZA Ultrasonography of Superior Vena Cava, Guidance (ICD-10-PCS; 2022-03-05)
PROC: 5A09357 Assistance with Respiratory Ventilation, Less than 24 Consecutive Hours, Continuous Positive Airway Pressure (ICD-10-PCS; 2022-03-13)
PROC: 5A09357 Assistance with Respiratory Ventilation, Less than 24 Consecutive Hours, Continuous Positive Airway Pressure (ICD-10-PCS; 2022-03-14)
DX: A41.2 Sepsis due to unspecified staphylococcus (principal); E11.10 Type 2 diabetes mellitus with ketoacidosis without coma; J69.0 Pneumonitis due to inhalation of food and vomit; J96.01 Acute respiratory failure with hypoxia; R65.21 Severe sepsis with septic shock; G93.41 Metabolic encephalopathy; N17.0 Acute kidney failure with tubular necrosis; I21.4 Non-ST elevation (NSTEMI) myocardial infarction; J15.0 Pneumonia due to Klebsiella pneumoniae; M62.82 Rhabdomyolysis; K56.7 Ileus, unspecified; N39.0 Urinary tract infection, site not specified; G93.1 Anoxic brain damage, not elsewhere classified; E72.20 Disorder of urea cycle metabolism, unspecified; E78.5 Hyperlipidemia, unspecified; E87.5 Hyperkalemia; E87.6 Hypokalemia; I48.91 Unspecified atrial fibrillation; K70.30 Alcoholic cirrhosis of liver without ascites; F32.A Depression, unspecified; D69.59 Other secondary thrombocytopenia; K72.90 Hepatic failure, unspecified without coma; K21.9 Gastro-esophageal reflux disease without esophagitis; B95.1 Streptococcus, group B, as the cause of diseases classified elsewhere; E83.39 Other disorders of phosphorus metabolism; Z20.822 Contact with and (suspected) exposure to COVID-19; I12.9 Hypertensive chronic kidney disease with stage 1 through stage 4 chronic kidney disease, or unspecified chronic kidney disease; N18.9 Chronic kidney disease, unspecified; N93.9 Abnormal uterine and vaginal bleeding, unspecified; D53.9 Nutritional anemia, unspecified; Z79.4 Long term (current) use of insulin; Z98.84 Bariatric surgery status; Z82.49 Family history of ischemic heart disease and other diseases of the circulatory system; Z88.1 Allergy status to other antibiotic agents; Z88.0 Allergy status to penicillin; Z90.49 Acquired absence of other specified parts of digestive tract; Z98.51 Tubal ligation status; Z71.41 Alcohol abuse counseling and surveillance of alcoholic
CPT/HCPCS: 31500; 36415; 36556; 36569; 36600; 70450; 71045; 71250; 74018; 74176; 74250; 76700; 76705; 76830; 76856; 80048; 80053; 80069; 80076; 80202; 80307; 80320; 81001; 81025; 82010; 82140; 82150; 82248; 82550; 82570; 82670; 82805; 82962; 83001; 83002; 83036; 83605; 83690; 83735; 83880; 84100; 84156; 84300; 84478; 84484; 85007; 85025; 85027; 85379; 85384; 85610; 85730; 87040; 87070; 87077; 87081; 87086; 87088; 87186; 87205; 87493; 92610; 93005; 93306; 93925; 93970; 94002; 94003; 94640; 94660; 95819; 96361; 96365; 99291; A4565; C9113; G0378; J0171; J0696; J1815; J1956; J2185; J2250; J2405; J2704; J3480; J7060; J7131; Q9956

== ENCOUNTER 2022-07-29 22:31 | Inpatient (IN) | payer OTHER ==
[~2022-07-29] VITALS: Ht 177.8 cm; Wt 70.1 kg
[~2022-07-29 22:31] MED LIST changes: +FLUO-125 PO; +GABA300C10 PO; -INSLANTI SC; -INSLISPI SC; +INSU100I4 SC; +INSUINJ37 SC; -MAGN400T40 PO; +NORT25CA PO; +POTA10TA32 PO
[2022-07-29] MEDS ORDERED: SODIUM CHLORIDE 0.9% 500 ML IV ONE (23:00)
[2022-07-30 00:08] LABS: Eosinophils # (auto) 0 10 ^3/uL (0-0.8); Hemoglobin 14.1 g/dL (12.2-16.2); Lymphocytes # (auto) 1.9 10 ^3/uL (0.4-5.4); Monocytes # (auto) 0.3 10 ^3/uL (0-1.3); Red Blood Cells 4.71 10^6/uL (4.0-5.20)
[2022-07-30 00:10] LABS: Basophils # (auto) 0 10 ^3/uL (0-0.2); Basophils % (auto) 0.2 % (0.0-2.0); Eosinophils % (auto) 0.3 % (0.0-7.0); Hematocrit 43.2 % (36.0-46.0); Lymphocytes % (auto) 21.5 % (10.0-50.0); Mean Corpuscular Hgb Conc. 32.6 g/dL (32.0-36.0); Mean Corpuscular Volume 91.8 fL (80.0-100.0); Monocytes % (auto) 3.3 % (0.0-12.0); Neutrophils # (auto) 6.6 10 ^3/uL (1.6-8.6); Neutrophils % (auto) 74.7 % (37.0-80.0); Nucleated Red Blood Cells % 0.2 %; Red Cell Distribution Width 14.1 % (11.8-14.3); White Blood Cell 8.8 10^3/uL (4.4-10.8)
[2022-07-30] MEDS ORDERED: ONDANSETRON HCL 4 MG/2 ML VIAL IV ONE (01:15)
[2022-07-30] MEDS ORDERED: MORPHINE SULFATE 4 MG/ML SYR/VIAL IV ONE (01:15)
[2022-07-30 01:26] LABS: Albumin 1.8 g/dL (3.4-5.0); BUN/Creatinine Ratio 12.9; Calcium 7.7 mg/dL (8.5-10.1); Potassium 3.6 mmol/L (3.5-5.1)
[2022-07-30 01:29] LABS: Bilirubin, Total 0.4 mg/dL (0.2-1.0); Total Protein 6.1 g/dL (6.4-8.2)
[2022-07-30] MEDS ORDERED: ONDANSETRON HCL 4 MG/2 ML VIAL IV PRN (05:15)
[2022-07-30] MEDS ORDERED: DEXTROSE (50%) 50ML SYRG IV PRN (05:15)
[2022-07-30] MEDS ORDERED: ACETAMINOPHEN 325 MG TAB PO PRN (05:15)
[2022-07-30] MEDS: MORPHINE SULFATE INJ 2 MG/ml SYRG IV PRN ×3 (05:38→19:13)
[2022-07-30] MEDS ORDERED: FUROSEMIDE 20 MG TAB PO SCH (06:00)
[2022-07-30 06:50] LABS: INR 1.29 (0.9-1.15); Partial Thromboplastin Time 29.9 sec (24.6-33.4)
[2022-07-30] MEDS: InsuLIN REG 1unit/0.01ml Soln (100units/ml) SC SCH ×4 (07:00→22:48)
[2022-07-30] MEDS: ACCU-CHEK COMFORT CURVE STRIP VI SCH ×4 (07:00→22:48)
[2022-07-30] MEDS ORDERED: HCTZ 25 MG TAB PO SCH (10:00)
[2022-07-30] MEDS: PANTOPRAZOLE 40 MG TAB PO SCH (10:11)
[2022-07-30] MEDS: LEVOTHYROXINE SODIUM 25 MCG TAB PO SCH (10:11)
[2022-07-30] MEDS: HYDROcodone-ACET 5/325MG TAB PO PRN ×2 (10:12→23:43)
[2022-07-30] MEDS ORDERED: LORazepam 2MG/ML-1ML VIAL IV PRN ×2 (19:00→19:15)
[2022-07-30] MEDS ORDERED: SODIUM CHLORIDE 0.9% 1,000 ML IV ONE (19:00)
[2022-07-30] MEDS: chlordiazePOXIDE HCL 25 MG CAP PO SCH (20:36)
[2022-07-30 22:00] VITALS: BP 145/85
[2022-07-31] VITALS (12 sets, daily range): BP systolic 90–149; BP diastolic 60–96
[2022-07-31] MEDS: MORPHINE SULFATE INJ 2 MG/ml SYRG IV PRN (01:40)
[2022-07-31 04:10] LABS: Urine Blood Normal /uL (Negative); Urine Specific Gravity 1.015 (1.001-1.035)
[2022-07-31 04:16] LABS: Amphetamine Screen, Urine NEGATIVE (NEGATIVE); Barbiturate Scree,Urine NEGATIVE (NEGATIVE); Benzodiazephine Screen, Urine NEGATIVE (NEGATIVE); Cannabinoid Screen, Urine NEGATIVE (NEGATIVE); Cocaine Screen, Urine NEGATIVE (NEGATIVE); Opiate Scree,Urine POSITIVE (NEGATIVE); Phencyclidine Screen, Urine NEGATIVE (NEGATIVE)
[2022-07-31] MEDS: chlordiazePOXIDE HCL 25 MG CAP PO SCH ×4 (05:24→22:02)
[2022-07-31 06:05] LABS: Basophils # (auto) 0 10 ^3/uL (0-0.2); Basophils % (auto) 0.6 % (0.0-2.0); Eosinophils # (auto) 0.1 10 ^3/uL (0-0.8); Eosinophils % (auto) 1.1 % (0.0-7.0); Hematocrit 39.2 % (36.0-46.0); Hemoglobin 13.1 g/dL (12.2-16.2); Lymphocytes # (auto) 1.9 10 ^3/uL (0.4-5.4); Lymphocytes % (auto) 31.9 % (10.0-50.0); Mean Corpuscular Hemoglobin 29.9 pg (28.0-32.0); Mean Corpuscular Hgb Conc. 33.5 g/dL (32.0-36.0); Mean Corpuscular Volume 89.3 fL (80.0-100.0); Monocytes # (auto) 0.3 10 ^3/uL (0-1.3); Monocytes % (auto) 4.3 % (0.0-12.0); Neutrophils # (auto) 3.8 10 ^3/uL (1.6-8.6); Neutrophils % (auto) 62.1 % (37.0-80.0); Red Cell Distribution Width 13.8 % (11.8-14.3); White Blood Cell 6.1 10^3/uL (4.4-10.8)
[2022-07-31 06:28] LABS: Albumin 1.6 g/dL (3.4-5.0); Calcium 7.5 mg/dL (8.5-10.1); Potassium 3.4 mmol/L (3.5-5.1)
[2022-07-31 06:30] LABS: BUN/Creatinine Ratio 13.4
[2022-07-31 06:33] LABS: Bilirubin, Total 1.2 mg/dL (0.2-1.0)
[2022-07-31] MEDS: ACCU-CHEK COMFORT CURVE STRIP VI SCH ×4 (06:42→21:49)
[2022-07-31] MEDS: InsuLIN REG 1unit/0.01ml Soln (100units/ml) SC SCH ×4 (06:42→22:05)
[2022-07-31] MEDS: LEVOTHYROXINE SODIUM 25 MCG TAB PO SCH (06:48)
[2022-07-31] MEDS: PANTOPRAZOLE 40 MG TAB PO SCH (09:12)
[2022-07-31] MEDS ORDERED: CLINDAMYCIN 600MG IV 50 ML IV ONE (09:36)
[2022-07-31] MEDS ORDERED: FAMOTIDINE (10MG/ML) 2ML VL IV ONE (10:55)
[2022-07-31] MEDS ORDERED: fentaNYL CITRATE 100 MCG/2 ML VL ONE (10:57)
[2022-07-31] MEDS ORDERED: ePHEDrine SULFATE 50 MG/ML AMP ONE (10:58)
[2022-07-31] MEDS ORDERED: PROPOFOL 10 MG/ML 20 ML IV ONE (10:58)
[2022-07-31] MEDS ORDERED: GLYCOPYRROLATE 0.2 MG/ML 1ML VIAL ONE (10:58)
[2022-07-31] MEDS ORDERED: ONDANSETRON HCL 4 MG/2 ML VIAL ONE (10:58)
[2022-07-31] MEDS ORDERED: MIDAZOLAM HCL 2MG/2ML 2ml VIAL (1mg/ml) ONE ×2 (10:58→11:05)
[2022-07-31] MEDS ORDERED: KETAMINE HCL 10 ML ONE (10:58)
[2022-07-31] MEDS ORDERED: MORPHINE SULF PF 5 MG/10 ML VIAL ONE (11:00)
[2022-07-31] MEDS ORDERED: BUPIVACAINE 0.5% P/F INJ 10 ML VIAL ONE (11:00)
[2022-07-31] MEDS ORDERED: TRANEXAMIC ACID 20 ML ONE (11:29)
[2022-07-31] MEDS ORDERED: ceFAZolin 1GM VL ONE (11:36)
[2022-07-31] MEDS ORDERED: KETOROLAC TROMETH 30 MG/ML 1ML VIAL IV ONE (12:00)
[2022-07-31] MEDS ORDERED: DexAMETHasone SOD PHOS 10MG/1ML VIAL INJ IV PRN (12:00)
[2022-07-31] MEDS ORDERED: NALBUPHINE HCL 10 MG/1ml INJECTION SUBCUT ONE (12:00)
[2022-07-31] MEDS ORDERED: diphenhdrAMINE HCL 50 MG/1 ML VL IV PRN (12:00)
[2022-07-31] MEDS ORDERED: MIDAZOLAM HCL 2MG/2ML 2ml VIAL (1mg/ml) IV PRN (12:00)
[2022-07-31] MEDS ORDERED: ACCU-CHEK COMFORT CURVE STRIP VI ONE (12:00)
[2022-07-31] MEDS ORDERED: ONDANSETRON HCL 4 MG/2 ML VIAL IV PRN ×2 (12:00)
[2022-07-31] MEDS ORDERED: THIAMINE 100mg/ml INJ (200mg/2ml VIAL) IV ONE (13:15)
[2022-07-31] MEDS ORDERED: FOLIC ACID 1 MG TAB PO ONE (13:15)
[2022-07-31] MEDS: LACTATED RINGER'S 1,000 ML IV SCH ×2 (14:45→23:20)
[2022-07-31] MEDS ORDERED: cefTRIAXone 1GM/50ML D5W 50 ML IV SCH (15:15)
[2022-07-31] MEDS: CLINDAMYCIN 600MG IV 50 ML IV SCH ×2 (15:39→21:56)
[2022-07-31] MEDS ORDERED: levoFLOXacin 500MG 100 ML IV SCH (17:00)
[2022-07-31] MEDS: FOLIC ACID 1 MG, MULTIPLE VITAMIN 10 ML, MAGNESIUM SULF SDV 50% 8 MEQ, THIAMINE INJ 100... INJ SCH ×5 (17:50)
[2022-07-31] MEDS: levoFLOXacin 500MG 100 ML IV SCH (21:42)
[2022-08-01] VITALS (17 sets, daily range): BP systolic 91–119; BP diastolic 55–81
[2022-08-01] MEDS: LEVOTHYROXINE SODIUM 25 MCG TAB PO SCH (06:10)
[2022-08-01] MEDS: ACCU-CHEK COMFORT CURVE STRIP VI SCH ×4 (06:10→22:03)
[2022-08-01] MEDS: InsuLIN REG 1unit/0.01ml Soln (100units/ml) SC SCH ×4 (06:11→22:00)
[2022-08-01 06:24] LABS: Basophils # (auto) 0 10 ^3/uL (0-0.2); Eosinophils # (auto) 0 10 ^3/uL (0-0.8); Hematocrit 34.7 % (36.0-46.0); Hemoglobin 11.2 g/dL (12.2-16.2); Lymphocytes # (auto) 0.6 10 ^3/uL (0.4-5.4); Lymphocytes % (auto) 9.1 % (10.0-50.0); Mean Corpuscular Hemoglobin 29.5 pg (28.0-32.0); Mean Corpuscular Hgb Conc. 32.3 g/dL (32.0-36.0); Mean Corpuscular Volume 91.2 fL (80.0-100.0); Monocytes # (auto) 0.3 10 ^3/uL (0-1.3); Monocytes % (auto) 4.7 % (0.0-12.0); Neutrophils # (auto) 5.5 10 ^3/uL (1.6-8.6); Neutrophils % (auto) 86.2 % (37.0-80.0); White Blood Cell 6.4 10^3/uL (4.4-10.8)
[2022-08-01 07:43] LABS: BUN/Creatinine Ratio 13.8; Calcium 7.5 mg/dL (8.5-10.1)
[2022-08-01] MEDS: PANTOPRAZOLE 40 MG TAB PO SCH (09:22)
[2022-08-01] MEDS: MULTIPLE VITAMIN TAB PO SCH (09:22)
[2022-08-01] MEDS: FOLIC ACID 1 MG TAB PO SCH (09:22)
[2022-08-01] MEDS: chlordiazePOXIDE HCL 25 MG CAP PO SCH ×2 (09:22→22:06)
[2022-08-01] MEDS: THIAMINE 100mg/ml INJ (200mg/2ml VIAL) IV SCH (09:22)
[2022-08-01] MEDS: LACTATED RINGER'S 1,000 ML IV SCH ×2 (09:31→20:02)
[2022-08-01] MEDS ORDERED: INSULIN LANTUS (GLARGINE) 1 /0.01ml (100units/ml) SC ONE (11:15)
[2022-08-01] MEDS ORDERED: ERGOCALCIFEROL 50,000 UNIT(1.25MG) CAP PO SCH (11:30)
[2022-08-01] MEDS: FOLIC ACID 1 MG, MULTIPLE VITAMIN 10 ML, MAGNESIUM SULF SDV 50% 8 MEQ, THIAMINE INJ 100... INJ SCH ×5 (13:07)
[2022-08-01] MEDS ORDERED: D5W 5% 1,000 ML IV SCH (21:45)
[2022-08-01] MEDS: levoFLOXacin 500MG 100 ML IV SCH (22:06)
[2022-08-01] MEDS: KETOROLAC TROMETH 30 MG/ML 1ML VIAL IV PRN (22:06)
[2022-08-02 05:00] VITALS: BP 108/72
[2022-08-02] MEDS: ACCU-CHEK COMFORT CURVE STRIP VI SCH ×3 (06:07→17:00)
[2022-08-02] MEDS: InsuLIN REG 1unit/0.01ml Soln (100units/ml) SC SCH ×3 (06:07→17:00)
[2022-08-02] MEDS: LEVOTHYROXINE SODIUM 25 MCG TAB PO SCH (06:08)
[2022-08-02] MEDS ORDERED: chlordiazePOXIDE HCL 25 MG CAP PO SCH (07:00)
[2022-08-02 07:24] LABS: Basophils # (auto) 0 10 ^3/uL (0-0.2); Basophils % (auto) 0.3 % (0.0-2.0); Eosinophils # (auto) 0.1 10 ^3/uL (0-0.8); Eosinophils % (auto) 1.4 % (0.0-7.0); Hematocrit 29.1 % (36.0-46.0); Hemoglobin 9.6 g/dL (12.2-16.2); Lymphocytes # (auto) 1.9 10 ^3/uL (0.4-5.4); Lymphocytes % (auto) 30.8 % (10.0-50.0); Mean Corpuscular Hemoglobin 30.3 pg (28.0-32.0); Mean Corpuscular Volume 91.7 fL (80.0-100.0); Monocytes # (auto) 0.3 10 ^3/uL (0-1.3); Monocytes % (auto) 5.4 % (0.0-12.0); Neutrophils # (auto) 3.9 10 ^3/uL (1.6-8.6); Neutrophils % (auto) 62.1 % (37.0-80.0); Nucleated Red Blood Cells % 0.1 %; Red Blood Cells 3.17 10^6/uL (4.0-5.20); Red Cell Distribution Width 13.8 % (11.8-14.3); White Blood Cell 6.2 10^3/uL (4.4-10.8)
[2022-08-02 07:47] LABS: Potassium 3.7 mmol/L (3.5-5.1)
[2022-08-02 07:53] LABS: BUN/Creatinine Ratio 12.8; Calcium 7.5 mg/dL (8.5-10.1)
[2022-08-02 08:00] VITALS: BP 132/87
[2022-08-02] MEDS: MULTIPLE VITAMIN TAB PO SCH (09:41)
[2022-08-02] MEDS: FOLIC ACID 1 MG TAB PO SCH (09:41)
[2022-08-02] MEDS: THIAMINE 100mg/ml INJ (200mg/2ml VIAL) IV SCH (09:42)
[2022-08-02] MEDS: FOLIC ACID 1 MG, MULTIPLE VITAMIN 10 ML, MAGNESIUM SULF SDV 50% 8 MEQ, THIAMINE INJ 100... INJ SCH ×5 (12:00)
[2022-08-02] MEDS: KETOROLAC TROMETH 30 MG/ML 1ML VIAL IV PRN (12:27)
[2022-08-02 13:00] VITALS: BP 120/87
[2022-08-02] MEDS ORDERED: ERGO1CAP23 PO (13:12)
[2022-08-02] MEDS ORDERED: LEVO500T31 PO (13:12)
[2022-08-02] MEDS ORDERED: LEV25T PO (13:12)
[2022-08-02 14:50] VITALS: BP 139/89
[2022-08-02 17:00] VITALS: BP 96/43
== END 2022-08-02 17:00 | disposition home health service (06) | DRG 521 ==
LOC: EDUNIT# 22:31 → EDBD 22:31 → ER 22:35 → OVERFLOW 07-30 05:05 → EAST 07-30 21:27 → TELE-EAST 07-31 14:44
PROVIDERS: ADMIT Nurse Practitioner; ATTEND Internal Medicine
PROC: 0SRR0JZ Replacement of Right Hip Joint, Femoral Surface with Synthetic Substitute, Open Approach (ICD-10-PCS; principal; 2022-07-31 10:58)
DX: S72.001A Fracture of unspecified part of neck of right femur, initial encounter for closed fracture (principal); E43 Unspecified severe protein-calorie malnutrition; F10.129 Alcohol abuse with intoxication, unspecified; E10.9 Type 1 diabetes mellitus without complications; Z98.84 Bariatric surgery status; E55.9 Vitamin D deficiency, unspecified; E03.9 Hypothyroidism, unspecified; R74.01 Elevation of levels of liver transaminase levels; E78.5 Hyperlipidemia, unspecified; Z96.642 Presence of left artificial hip joint; Z20.822 Contact with and (suspected) exposure to COVID-19; I10 Essential (primary) hypertension; Z82.49 Family history of ischemic heart disease and other diseases of the circulatory system; Z90.49 Acquired absence of other specified parts of digestive tract; Z88.1 Allergy status to other antibiotic agents; Z88.0 Allergy status to penicillin; Z98.51 Tubal ligation status; Z68.22 Body mass index [BMI] 22.0-22.9, adult; Z71.41 Alcohol abuse counseling and surveillance of alcoholic; W18.39XA Other fall on same level, initial encounter; Y93.89 Activity, other specified; Y92.89 Other specified places as the place of occurrence of the external cause; Y99.8 Other external cause status
CPT/HCPCS: 36415; 70450; 71045; 72170; 73502; 74176; 80048; 80053; 80307; 80320; 81003; 81025; 82306; 82962; 83036; 83690; 83880; 84439; 84443; 84484; 85025; 85610; 85730; 86850; 86900; 86901; 87426; 93005; 96361; 96374; 96375; 96376; G0378; J0690; J1815; J1885; J1956; J2250; J2405; J2704; J3490

== ENCOUNTER 2022-10-03 20:44 | Inpatient (IN) | payer OTHER ==
[~2022-10-03] VITALS: Ht 167.6 cm; Wt 93.2 kg
[~2022-10-03 20:44] MED LIST changes: +ERGO1CAP23 PO; +LEV25T PO; +LEVO500T31 PO
[2022-10-03 22:08] LABS: Basophils # (auto) 0.1 10 ^3/uL (0-0.2); Eosinophils # (auto) 0.2 10 ^3/uL (0-0.8); Eosinophils % (auto) 2.2 % (0.0-7.0); Hematocrit 30.3 % (36.0-46.0); Lymphocytes # (auto) 1.5 10 ^3/uL (0.4-5.4); Lymphocytes % (auto) 20.2 % (10.0-50.0); Mean Corpuscular Hemoglobin 31.9 pg (28.0-32.0); Mean Corpuscular Volume 96.9 fL (80.0-100.0); Monocytes # (auto) 0.4 10 ^3/uL (0-1.3); Monocytes % (auto) 4.8 % (0.0-12.0); Neutrophils # (auto) 5.3 10 ^3/uL (1.6-8.6); Neutrophils % (auto) 71.8 % (37.0-80.0); Nucleated Red Blood Cells % 0.5 %; Red Blood Cells 3.12 10^6/uL (4.0-5.20); Red Cell Distribution Width 18.1 % (11.8-14.3); White Blood Cell 7.3 10^3/uL (4.4-10.8)
[2022-10-03 22:15] LABS: Albumin 1.1 g/dL (3.4-5.0); BUN/Creatinine Ratio 10.6; Calcium 7.4 mg/dL (8.5-10.1); Potassium 4.3 mmol/L (3.5-5.1)
[2022-10-03 22:18] LABS: Bilirubin, Total 0.5 mg/dL (0.2-1.0); Total Protein 4.7 g/dL (6.4-8.2)
[2022-10-03] MEDS ORDERED: HYDROmorphone HCL 2 MG/ML VL/or syr IV ONE (23:15)
[2022-10-03] MEDS ORDERED: ONDANSETRON HCL 4 MG/2 ML VIAL IV ONE (23:15)
[2022-10-04] VITALS (32 sets, daily range): BP systolic 87–159; BP diastolic 51–87
[2022-10-04] MEDS ORDERED: LEVOTHYROXINE SODIUM 100 MCG/5 ML INJ IV ONE (02:45)
[2022-10-04] MEDS ORDERED: DexAMETHasone SOD PHOS 4 MG/1ML SDV INJ IV ONE (02:45)
[2022-10-04] MEDS ORDERED: MIDAZOLAM HCL 2MG/2ML 2ml VIAL (1mg/ml) ONE (02:47)
[2022-10-04] MEDS ORDERED: ETOMIDATE (2MG/ML) 20ML VIAL IV ONE ×2 (02:47→03:00)
[2022-10-04] MEDS ORDERED: PROPOFOL 0 ML IV ONE (02:49)
[2022-10-04] MEDS ORDERED: ROCURONIUM 10MG/ML 10ML VIAL IV ONE ×2 (02:49→03:00)
[2022-10-04] MEDS: PROPOFOL 100 ML IV SCH ×5 (03:00→22:42)
[2022-10-04] MEDS ORDERED: MIDAZOLAM HCL 5 MG/ML-1ML VIAL IV ONE (03:00)
[2022-10-04] MEDS ORDERED: MIDAZOLAM DRIP 50 mg/50mL 50 ML IV ONE (03:04)
[2022-10-04] MEDS: MIDAZOLAM DRIP 50 mg/50mL 50 ML IV SCH ×4 (03:10→23:51)
[2022-10-04 04:16] LABS: Alcohol, Urine < 3.0 mg/dL (0-10); Amphetamine Screen, Urine NEGATIVE (NEGATIVE); Barbiturate Scree,Urine NEGATIVE (NEGATIVE); Benzodiazephine Screen, Urine NEGATIVE (NEGATIVE); Cannabinoid Screen, Urine NEGATIVE (NEGATIVE); Cocaine Screen, Urine NEGATIVE (NEGATIVE); Opiate Scree,Urine NEGATIVE (NEGATIVE); Phencyclidine Screen, Urine NEGATIVE (NEGATIVE)
[2022-10-04 04:40] LABS: Urine Bacteria FEW /hpf (None Seen); Urine Blood Negative /uL (Negative); Urine Mucus FEW (None Seen); Urine Specific Gravity 1.019 (1.001-1.035); Urine WBC 2807 /hpf (0 - 5); Urine WBC Clumps PRESENT /hpf (None Seen)
[2022-10-04] MEDS: NOREPINEPHRINE 8 MG/250ML KIT 250 ML IV SCH (04:58)
[2022-10-04] MEDS ORDERED: ONDANSETRON HCL 4 MG/2 ML VIAL IV PRN (06:15)
[2022-10-04] MEDS ORDERED: DOCUSATE SOD 100 MG CAP PO PRN (06:15)
[2022-10-04] MEDS ORDERED: DEXTROSE (50%) 50ML SYRG IV PRN (06:15)
[2022-10-04] MEDS ORDERED: ACETAMINOPHEN 325 MG TAB PO PRN (06:15)
[2022-10-04] MEDS ORDERED: HYDROcodone-ACET 5/325MG TAB PO PRN (06:15)
[2022-10-04 06:50] LABS: Basophils # (auto) 0 10 ^3/uL (0-0.2); Basophils % (auto) 0.3 % (0.0-2.0); Eosinophils # (auto) 0 10 ^3/uL (0-0.8); Eosinophils % (auto) 0.3 % (0.0-7.0); Hematocrit 30.5 % (36.0-46.0); Lymphocytes # (auto) 0.9 10 ^3/uL (0.4-5.4); Lymphocytes % (auto) 16.1 % (10.0-50.0); Mean Corpuscular Hgb Conc. 32.8 g/dL (32.0-36.0); Mean Corpuscular Volume 94.3 fL (80.0-100.0); Monocytes # (auto) 0.2 10 ^3/uL (0-1.3); Monocytes % (auto) 3.8 % (0.0-12.0); Neutrophils # (auto) 4.7 10 ^3/uL (1.6-8.6); Neutrophils % (auto) 79.5 % (37.0-80.0); Red Blood Cells 3.23 10^6/uL (4.0-5.20); Red Cell Distribution Width 17.1 % (11.8-14.3); White Blood Cell 5.9 10^3/uL (4.4-10.8)
[2022-10-04] MEDS: LEVOTHYROXINE SODIUM 25 MCG TAB GT SCH (07:00)
[2022-10-04] MEDS ORDERED: MORPHINE SULFATE INJ 2 MG/ml SYRG IV PRN (07:00)
[2022-10-04] MEDS ORDERED: LEVOTHYROXINE SODIUM 25 MCG TAB PO SCH (07:00)
[2022-10-04] MEDS ORDERED: NITROGLYCERIN 0.4 MG SL TAB SL PRN (07:00)
[2022-10-04] MEDS: InsuLIN REG 1unit/0.01ml Soln (100units/ml) SC SCH ×4 (07:00→22:16)
[2022-10-04 07:11] LABS: Albumin 1.3 g/dL (3.4-5.0); Calcium 7.3 mg/dL (8.5-10.1)
[2022-10-04] MEDS: ACCU-CHEK COMFORT CURVE STRIP VI SCH ×4 (07:11→22:15)
[2022-10-04 07:14] LABS: BUN/Creatinine Ratio 10.4; Bilirubin, Total 1.2 mg/dL (0.2-1.0); Total Protein 4.8 g/dL (6.4-8.2)
[2022-10-04] MEDS: ALBUMIN 25% 100 ML IV SCH ×3 (07:14→22:09)
[2022-10-04] MEDS: FUROSEMIDE 20 MG/2 ML VIAL IV SCH (09:48)
[2022-10-04] MEDS: ENOXAPARIN SOD 40 MG/0.4 ML SYRINGE SC SCH (09:48)
[2022-10-04] MEDS: FAMOTIDINE (10MG/ML) 2ML VL IV SCH (09:49)
[2022-10-04] MEDS: levoFLOXacin 500MG 100 ML IV SCH (09:49)
[2022-10-04] MEDS: DexAMETHasone SOD PHOS 10MG/1ML VIAL INJ IV SCH (09:49)
[2022-10-04] MEDS: LACTULOSE 20Gm/30ML SOLN NG SCH ×3 (11:50→23:41)
[2022-10-04] MEDS ORDERED: LACTULOSE 20Gm/30ML SOLN PO SCH (12:00)
[2022-10-04] MEDS ORDERED: AZITHROMYCIN 500MG/ 250ML 250 ML IV SCH (13:00)
[2022-10-04] MEDS: SODIUM CHLOR 0.9% PF (SALINE LOCK) 10ML VIAL/SYR IV SCH ×2 (13:51→22:15)
[2022-10-05] VITALS (104 sets, daily range): BP systolic 88–174; BP diastolic 48–90
[2022-10-05] MEDS: NOREPINEPHRINE 8 MG/250ML KIT 250 ML IV SCH (04:45)
[2022-10-05 05:03] LABS: Basophils # (auto) 0 10 ^3/uL (0-0.2); Eosinophils # (auto) 0 10 ^3/uL (0-0.8); Lymphocytes # (auto) 1.5 10 ^3/uL (0.4-5.4); Monocytes # (auto) 0.4 10 ^3/uL (0-1.3); Monocytes % (auto) 4.8 % (0.0-12.0); Neutrophils # (auto) 6.1 10 ^3/uL (1.6-8.6)
[2022-10-05 05:05] LABS: Basophils % (auto) 0.1 % (0.0-2.0); Eosinophils % (auto) 0.1 % (0.0-7.0); Hemoglobin 8.5 g/dL (12.2-16.2); Lymphocytes % (auto) 18.5 % (10.0-50.0); Mean Corpuscular Volume 94.3 fL (80.0-100.0); Neutrophils % (auto) 76.5 % (37.0-80.0); Nucleated Red Blood Cells % 0.2 %; Red Blood Cells 2.65 10^6/uL (4.0-5.20); Red Cell Distribution Width 17.9 % (11.8-14.3)
[2022-10-05 05:20] LABS: Albumin 2.2 g/dL (3.4-5.0); BUN/Creatinine Ratio 10.3; Calcium 7.6 mg/dL (8.5-10.1); Potassium 3.8 mmol/L (3.5-5.1)
[2022-10-05 05:26] LABS: Bilirubin, Total 0.7 mg/dL (0.2-1.0); Total Protein 4.8 g/dL (6.4-8.2)
[2022-10-05] MEDS: SODIUM CHLOR 0.9% PF (SALINE LOCK) 10ML VIAL/SYR IV SCH ×3 (06:27→22:08)
[2022-10-05] MEDS: LACTULOSE 20Gm/30ML SOLN NG SCH ×4 (06:27→23:52)
[2022-10-05] MEDS: LEVOTHYROXINE SODIUM 25 MCG TAB GT SCH (06:27)
[2022-10-05] MEDS: ACCU-CHEK COMFORT CURVE STRIP VI SCH ×4 (06:28→22:07)
[2022-10-05] MEDS: InsuLIN REG 1unit/0.01ml Soln (100units/ml) SC SCH ×4 (06:38→22:07)
[2022-10-05] MEDS: PROPOFOL 100 ML IV SCH ×2 (06:46→22:15)
[2022-10-05] MEDS ORDERED: DOPamine 1600MCG/ML D5W 250 ML IV ONE (08:50)
[2022-10-05] MEDS: DOPamine 1600MCG/ML D5W 250 ML IV SCH (09:00)
[2022-10-05] MEDS: FUROSEMIDE 20 MG/2 ML VIAL IV SCH (09:55)
[2022-10-05] MEDS: levoFLOXacin 500MG 100 ML IV SCH (09:55)
[2022-10-05] MEDS: FAMOTIDINE (10MG/ML) 2ML VL IV SCH (09:55)
[2022-10-05] MEDS: DexAMETHasone SOD PHOS 10MG/1ML VIAL INJ IV SCH (09:55)
[2022-10-05] MEDS: ENOXAPARIN SOD 40 MG/0.4 ML SYRINGE SC SCH (09:55)
[2022-10-05] MEDS ORDERED: VANCOMYCIN PER PHARMACY 0 MG IV SCH (13:45)
[2022-10-05] MEDS: VANCOMYCIN 1GM/250ML 250 ML IV SCH (18:14)
[2022-10-05] MEDS: MUPIROCIN 2% OINT 15gm or 22gm FOR MRSA NARES EACHNOSTRI SCH (22:07)
[2022-10-06] VITALS (104 sets, daily range): BP systolic 86–126; BP diastolic 49–74
[2022-10-06] MEDS: DOPamine 1600MCG/ML D5W 250 ML IV SCH ×2 (00:55→17:00)
[2022-10-06] MEDS: VANCOMYCIN 1GM/250ML 250 ML IV SCH ×2 (01:51→14:20)
[2022-10-06] MEDS: MIDAZOLAM DRIP 50 mg/50mL 50 ML IV SCH ×2 (03:00→13:23)
[2022-10-06] MEDS: NOREPINEPHRINE 8 MG/250ML KIT 250 ML IV SCH (04:45)
[2022-10-06 05:54] LABS: Basophils # (auto) 0 10 ^3/uL (0-0.2); Eosinophils # (auto) 0 10 ^3/uL (0-0.8); Mean Corpuscular Volume 92.7 fL (80.0-100.0); Monocytes # (auto) 0.4 10 ^3/uL (0-1.3); Nucleated Red Blood Cells % 0.1 %; Red Cell Distribution Width 17.9 % (11.8-14.3); White Blood Cell 7.3 10^3/uL (4.4-10.8)
[2022-10-06 05:56] LABS: Eosinophils % (auto) 0.1 % (0.0-7.0); Hematocrit 23.7 % (36.0-46.0); Lymphocytes # (auto) 1.1 10 ^3/uL (0.4-5.4); Lymphocytes % (auto) 15.1 % (10.0-50.0); Mean Corpuscular Hemoglobin 31.3 pg (28.0-32.0); Mean Corpuscular Hgb Conc. 33.8 g/dL (32.0-36.0); Monocytes % (auto) 4.9 % (0.0-12.0); Neutrophils # (auto) 5.8 10 ^3/uL (1.6-8.6); Neutrophils % (auto) 79.9 % (37.0-80.0); Red Blood Cells 2.56 10^6/uL (4.0-5.20)
[2022-10-06 06:11] LABS: BUN/Creatinine Ratio 11.9; Calcium 7.6 mg/dL (8.5-10.1); Potassium 3.1 mmol/L (3.5-5.1)
[2022-10-06] MEDS: LEVOTHYROXINE SODIUM 25 MCG TAB GT SCH (06:12)
[2022-10-06] MEDS: LACTULOSE 20Gm/30ML SOLN NG SCH (06:12)
[2022-10-06] MEDS: SODIUM CHLOR 0.9% PF (SALINE LOCK) 10ML VIAL/SYR IV SCH ×3 (06:13→21:47)
[2022-10-06] MEDS: PROPOFOL 100 ML IV SCH ×2 (06:13→18:23)
[2022-10-06] MEDS: ACCU-CHEK COMFORT CURVE STRIP VI SCH ×4 (06:13→22:00)
[2022-10-06] MEDS: InsuLIN REG 1unit/0.01ml Soln (100units/ml) SC SCH ×4 (06:30→21:49)
[2022-10-06] MEDS: FUROSEMIDE 20 MG/2 ML VIAL IV SCH (10:28)
[2022-10-06] MEDS: MUPIROCIN 2% OINT 15gm or 22gm FOR MRSA NARES EACHNOSTRI SCH ×2 (10:28→21:46)
[2022-10-06] MEDS: cefTRIAXone 1GM/50ML D5W 50 ML IV SCH (10:28)
[2022-10-06] MEDS: ENOXAPARIN SOD 40 MG/0.4 ML SYRINGE SC SCH (10:29)
[2022-10-06] MEDS: POTASSIUM CHL 20MEQ/100ML 100 ML IV SCH ×2 (10:29→12:30)
[2022-10-06] MEDS: FAMOTIDINE (10MG/ML) 2ML VL IV SCH (10:29)
[2022-10-06] MEDS ORDERED: DexAMETHasone SOD PHOS 4 MG/1ML SDV INJ ONE (10:31)
[2022-10-06] MEDS ORDERED: LACTULOSE 20Gm/30ML SOLN PO PRN (12:15)
[2022-10-07] VITALS (106 sets, daily range): BP systolic 86–152; BP diastolic 50–84
[2022-10-07] MEDS: VANCOMYCIN 1GM/250ML 250 ML IV SCH ×2 (02:10→13:42)
[2022-10-07] MEDS: NOREPINEPHRINE 8 MG/250ML KIT 250 ML IV SCH (04:45)
[2022-10-07 05:06] LABS: Basophils # (auto) 0 10 ^3/uL (0-0.2); Basophils % (auto) 0.7 % (0.0-2.0); Eosinophils # (auto) 0 10 ^3/uL (0-0.8); Eosinophils % (auto) 0.4 % (0.0-7.0); Hematocrit 26.1 % (36.0-46.0); Hemoglobin 8.8 g/dL (12.2-16.2); Lymphocytes # (auto) 1.6 10 ^3/uL (0.4-5.4); Lymphocytes % (auto) 23.8 % (10.0-50.0); Mean Corpuscular Hemoglobin 31.4 pg (28.0-32.0); Mean Corpuscular Hgb Conc. 33.5 g/dL (32.0-36.0); Mean Corpuscular Volume 93.6 fL (80.0-100.0); Monocytes # (auto) 0.6 10 ^3/uL (0-1.3); Monocytes % (auto) 8.5 % (0.0-12.0); Neutrophils # (auto) 4.5 10 ^3/uL (1.6-8.6); Neutrophils % (auto) 66.6 % (37.0-80.0); Nucleated Red Blood Cells % 0.1 %; Red Blood Cells 2.79 10^6/uL (4.0-5.20); White Blood Cell 6.7 10^3/uL (4.4-10.8)
[2022-10-07 05:19] LABS: BUN/Creatinine Ratio 14.9; Calcium 7.4 mg/dL (8.5-10.1); Potassium 3.1 mmol/L (3.5-5.1)
[2022-10-07] MEDS: MIDAZOLAM DRIP 50 mg/50mL 50 ML IV SCH ×2 (05:29→14:37)
[2022-10-07] MEDS: ACCU-CHEK COMFORT CURVE STRIP VI SCH ×4 (06:34→22:14)
[2022-10-07] MEDS: SODIUM CHLOR 0.9% PF (SALINE LOCK) 10ML VIAL/SYR IV SCH ×3 (06:34→22:07)
[2022-10-07] MEDS: LEVOTHYROXINE SODIUM 25 MCG TAB GT SCH (06:34)
[2022-10-07] MEDS: InsuLIN REG 1unit/0.01ml Soln (100units/ml) SC SCH ×4 (06:36→22:19)
[2022-10-07] MEDS: cefTRIAXone 1GM/50ML D5W 50 ML IV SCH (08:29)
[2022-10-07] MEDS: DOPamine 1600MCG/ML D5W 250 ML IV SCH ×2 (08:45→09:49)
[2022-10-07] MEDS: FAMOTIDINE (10MG/ML) 2ML VL IV SCH (09:04)
[2022-10-07] MEDS: POTASSIUM CHL 20MEQ/100ML 100 ML IV SCH ×2 (09:04→10:32)
[2022-10-07] MEDS: ENOXAPARIN SOD 40 MG/0.4 ML SYRINGE SC SCH (09:04)
[2022-10-07] MEDS: MUPIROCIN 2% OINT 15gm or 22gm FOR MRSA NARES EACHNOSTRI SCH ×2 (09:05→22:15)
[2022-10-07] MEDS: FUROSEMIDE 20 MG/2 ML VIAL IV SCH (09:05)
[2022-10-07] MEDS ORDERED: DexAMETHasone SOD PHOS 4 MG/1ML SDV INJ IV SCH (10:00)
[2022-10-07] MEDS ORDERED: FUROSEMIDE 20 MG/2 ML VIAL IV ONE (10:15)
[2022-10-07] MEDS ORDERED: Glucerna 1.2 Cal 1Liter BOTTLE GT SCH (10:30)
[2022-10-07] MEDS: PROPOFOL 100 ML IV SCH ×2 (10:57→18:36)
[2022-10-08] VITALS (99 sets, daily range): BP systolic 77–151; BP diastolic 47–85
[2022-10-08] MEDS: MIDAZOLAM DRIP 50 mg/50mL 50 ML IV SCH ×2 (00:06→15:04)
[2022-10-08] MEDS: VANCOMYCIN 1GM/250ML 250 ML IV SCH ×2 (01:57→14:09)
[2022-10-08] MEDS: NOREPINEPHRINE 8 MG/250ML KIT 250 ML IV SCH (04:45)
[2022-10-08] MEDS: SODIUM CHLOR 0.9% PF (SALINE LOCK) 10ML VIAL/SYR IV SCH ×3 (06:00→21:49)
[2022-10-08 06:04] LABS: Basophils # (auto) 0 10 ^3/uL (0-0.2); Basophils % (auto) 0.1 % (0.0-2.0); Eosinophils # (auto) 0.1 10 ^3/uL (0-0.8); Eosinophils % (auto) 1.1 % (0.0-7.0); Hematocrit 30.7 % (36.0-46.0); Hemoglobin 10.4 g/dL (12.2-16.2); Lymphocytes # (auto) 2.1 10 ^3/uL (0.4-5.4); Mean Corpuscular Hemoglobin 31.2 pg (28.0-32.0); Mean Corpuscular Hgb Conc. 33.7 g/dL (32.0-36.0); Mean Corpuscular Volume 92.4 fL (80.0-100.0); Monocytes # (auto) 0.6 10 ^3/uL (0-1.3); Monocytes % (auto) 8.6 % (0.0-12.0); Neutrophils # (auto) 3.7 10 ^3/uL (1.6-8.6); Neutrophils % (auto) 58.2 % (37.0-80.0); Nucleated Red Blood Cells % 0.1 %; Red Blood Cells 3.32 10^6/uL (4.0-5.20); Red Cell Distribution Width 17.8 % (11.8-14.3); White Blood Cell 6.4 10^3/uL (4.4-10.8)
[2022-10-08 06:23] LABS: Calcium 7.2 mg/dL (8.5-10.1)
[2022-10-08 06:25] LABS: BUN/Creatinine Ratio 23.2
[2022-10-08] MEDS: ACCU-CHEK COMFORT CURVE STRIP VI SCH ×4 (06:32→21:49)
[2022-10-08] MEDS: PROPOFOL 100 ML IV SCH ×3 (06:32→23:49)
[2022-10-08] MEDS: LEVOTHYROXINE SODIUM 25 MCG TAB GT SCH (06:35)
[2022-10-08] MEDS: InsuLIN REG 1unit/0.01ml Soln (100units/ml) SC SCH ×4 (06:39→21:49)
[2022-10-08] MEDS: cefTRIAXone 1GM/50ML D5W 50 ML IV SCH (08:08)
[2022-10-08] MEDS: FAMOTIDINE (10MG/ML) 2ML VL IV SCH (08:46)
[2022-10-08] MEDS: ENOXAPARIN SOD 40 MG/0.4 ML SYRINGE SC SCH (08:47)
[2022-10-08] MEDS: FUROSEMIDE 20 MG/2 ML VIAL IV SCH (08:47)
[2022-10-08] MEDS: POTASSIUM CHL 20MEQ/100ML 100 ML IV SCH ×3 (08:48→13:00)
[2022-10-08] MEDS: MUPIROCIN 2% OINT 15gm or 22gm FOR MRSA NARES EACHNOSTRI SCH ×2 (08:56→21:49)
[2022-10-08] MEDS: DOPamine 1600MCG/ML D5W 250 ML IV SCH (13:03)
[2022-10-09] VITALS (97 sets, daily range): BP systolic 76–145; BP diastolic 42–89
[2022-10-09] MEDS: VANCOMYCIN 1GM/250ML 250 ML IV SCH ×2 (02:31→14:15)
[2022-10-09 05:50] LABS: Basophils # (auto) 0 10 ^3/uL (0-0.2); Basophils % (auto) 0.1 % (0.0-2.0); Eosinophils # (auto) 0.1 10 ^3/uL (0-0.8); Eosinophils % (auto) 1.7 % (0.0-7.0); Hemoglobin 9.8 g/dL (12.2-16.2); Mean Corpuscular Hgb Conc. 32.8 g/dL (32.0-36.0); Mean Corpuscular Volume 94.7 fL (80.0-100.0); Monocytes # (auto) 0.4 10 ^3/uL (0-1.3); Monocytes % (auto) 7.5 % (0.0-12.0); Neutrophils # (auto) 2.3 10 ^3/uL (1.6-8.6); Neutrophils % (auto) 48.7 % (37.0-80.0); Nucleated Red Blood Cells % 0.4 %; Red Blood Cells 3.17 10^6/uL (4.0-5.20); Red Cell Distribution Width 17.9 % (11.8-14.3); White Blood Cell 4.7 10^3/uL (4.4-10.8)
[2022-10-09] MEDS: InsuLIN REG 1unit/0.01ml Soln (100units/ml) SC SCH ×4 (06:05→21:41)
[2022-10-09] MEDS: ACCU-CHEK COMFORT CURVE STRIP VI SCH ×4 (06:06→21:36)
[2022-10-09] MEDS: SODIUM CHLOR 0.9% PF (SALINE LOCK) 10ML VIAL/SYR IV SCH ×3 (06:06→21:36)
[2022-10-09] MEDS: LEVOTHYROXINE SODIUM 25 MCG TAB GT SCH (06:06)
[2022-10-09 06:08] LABS: BUN/Creatinine Ratio 23.7; Calcium 7.3 mg/dL (8.5-10.1); Potassium 3.1 mmol/L (3.5-5.1)
[2022-10-09] MEDS: MIDAZOLAM DRIP 50 mg/50mL 50 ML IV SCH (06:08)
[2022-10-09] MEDS: NOREPINEPHRINE 8 MG/250ML KIT 250 ML IV SCH (07:55)
[2022-10-09] MEDS: DOPamine 1600MCG/ML D5W 250 ML IV SCH ×2 (08:30→23:56)
[2022-10-09] MEDS: cefTRIAXone 1GM/50ML D5W 50 ML IV SCH (08:52)
[2022-10-09] MEDS: PANTOPRAZOLE 40 MG/10 ML VIAL INJ IV SCH (09:38)
[2022-10-09] MEDS: FUROSEMIDE 20 MG/2 ML VIAL IV SCH (09:38)
[2022-10-09] MEDS: ENOXAPARIN SOD 40 MG/0.4 ML SYRINGE SC SCH (09:39)
[2022-10-09] MEDS: POTASSIUM CHL 20MEQ/100ML 100 ML IV SCH ×3 (09:40→15:11)
[2022-10-09] MEDS: MUPIROCIN 2% OINT 15gm or 22gm FOR MRSA NARES EACHNOSTRI SCH ×2 (09:54→21:36)
[2022-10-09] MEDS: MORPHINE SULFATE INJ 2 MG/ml SYRG IV PRN ×2 (10:17→14:25)
[2022-10-10] VITALS (38 sets, daily range): BP systolic 105–133; BP diastolic 64–80
[2022-10-10] MEDS: PROPOFOL 100 ML IV SCH (01:40)
[2022-10-10] MEDS: VANCOMYCIN 1GM/250ML 250 ML IV SCH ×2 (01:41→13:33)
[2022-10-10] MEDS: NOREPINEPHRINE 8 MG/250ML KIT 250 ML IV SCH (03:44)
[2022-10-10] MEDS: SODIUM CHLOR 0.9% PF (SALINE LOCK) 10ML VIAL/SYR IV SCH ×2 (05:20→13:34)
[2022-10-10 05:21] LABS: Basophils # (auto) 0 10 ^3/uL (0-0.2); Basophils % (auto) 0.4 % (0.0-2.0); Eosinophils # (auto) 0 10 ^3/uL (0-0.8); Hematocrit 27.5 % (36.0-46.0); Hemoglobin 9.4 g/dL (12.2-16.2); Lymphocytes # (auto) 1.8 10 ^3/uL (0.4-5.4); Lymphocytes % (auto) 43.8 % (10.0-50.0); Mean Corpuscular Hemoglobin 31.9 pg (28.0-32.0); Monocytes # (auto) 0.4 10 ^3/uL (0-1.3); Monocytes % (auto) 9.2 % (0.0-12.0); Neutrophils # (auto) 1.9 10 ^3/uL (1.6-8.6); Neutrophils % (auto) 45.6 % (37.0-80.0); Nucleated Red Blood Cells % 0.2 %; Red Blood Cells 2.93 10^6/uL (4.0-5.20); White Blood Cell 4.2 10^3/uL (4.4-10.8)
[2022-10-10 05:39] LABS: Calcium 7.4 mg/dL (8.5-10.1); Potassium 3.5 mmol/L (3.5-5.1)
[2022-10-10] MEDS: ACCU-CHEK COMFORT CURVE STRIP VI SCH ×3 (06:42→16:34)
[2022-10-10] MEDS: InsuLIN REG 1unit/0.01ml Soln (100units/ml) SC SCH ×3 (06:44→16:37)
[2022-10-10] MEDS: LEVOTHYROXINE SODIUM 25 MCG TAB GT SCH (06:45)
[2022-10-10] MEDS: MUPIROCIN 2% OINT 15gm or 22gm FOR MRSA NARES EACHNOSTRI SCH (09:51)
[2022-10-10] MEDS: cefTRIAXone 1GM/50ML D5W 50 ML IV SCH (10:01)
[2022-10-10] MEDS: PANTOPRAZOLE 40 MG/10 ML VIAL INJ IV SCH (10:02)
[2022-10-10] MEDS: ENOXAPARIN SOD 40 MG/0.4 ML SYRINGE SC SCH (10:12)
[2022-10-10] MEDS ORDERED: GABAPENTIN 300 MG CAP PO SCH (22:00)
[2022-10-11] MEDS ORDERED: LEVOTHYROXINE SODIUM 50 MCG TAB PO SCH (07:00)
[2022-10-11] MEDS ORDERED: FLUoxetine HCL 20 MG CAP PO SCH (10:00)
== END 2022-10-10 21:05 | disposition short-term general hospital (02) | DRG 870 ==
LOC: EDUNIT# 20:44 → EDBD 20:44 → ER 20:44 → TELE 10-04 06:58 → ICU CENTRL 10-04 17:27 → TELE-WESTW 10-10 10:57
PROVIDERS: ADMIT Nurse Practitioner Family; ATTEND Internal Medicine
PROC: 5A1955Z Respiratory Ventilation, Greater than 96 Consecutive Hours (ICD-10-PCS; principal; 2022-10-04)
PROC: 0BH18EZ Insertion of Endotracheal Airway into Trachea, Via Natural or Artificial Opening Endoscopic (ICD-10-PCS; 2022-10-04)
DX: A41.02 Sepsis due to Methicillin resistant Staphylococcus aureus (principal); E03.5 Myxedema coma; G93.41 Metabolic encephalopathy; J18.9 Pneumonia, unspecified organism; R65.21 Severe sepsis with septic shock; J96.01 Acute respiratory failure with hypoxia; N39.0 Urinary tract infection, site not specified; E03.9 Hypothyroidism, unspecified; E11.9 Type 2 diabetes mellitus without complications; E88.09 Other disorders of plasma-protein metabolism, not elsewhere classified; I10 Essential (primary) hypertension; Z20.822 Contact with and (suspected) exposure to COVID-19; E78.00 Pure hypercholesterolemia, unspecified; Z88.0 Allergy status to penicillin; Z82.49 Family history of ischemic heart disease and other diseases of the circulatory system; Z90.49 Acquired absence of other specified parts of digestive tract
CPT/HCPCS: 31500; 36415; 36556; 36600; 71045; 80048; 80053; 80202; 80307; 80320; 81001; 82140; 82805; 82962; 83605; 83735; 83880; 84439; 84443; 84484; 85025; 87070; 87077; 87081; 87086; 87088; 87186; 87205; 87426; 93005; 94003; 96374; 96375; 97163; 99291; C9113; G0378; J0696; J1100; J1815; J1956; J2250; J2405; J2704; J3480; J3490; J7060; P9047

== ENCOUNTER 2024-02-18 09:53 | Inpatient (IN) | payer OTHER ==
[~2024-02-18] VITALS: Ht 165.1 cm; Wt 83.5 kg
[2024-02-18] MEDS: LACTULOSE 10g/15ml SOLN 473ML PR ONE (00:45)
[~2024-02-18 09:53] MED LIST changes: +GABA-1250 PO; -GABA300C10 PO; +POTA-228 PO; -POTA10TA32 PO
[2024-02-18] MEDS: SODIUM CHLORIDE 0.9% 1,000 ML IVB ONE (10:30)
[2024-02-18] MEDS: cefTRIAXone 1GM/50ML D5W 50 ML IV ONE (10:30)
[2024-02-18 11:02] VITALS: PULSE 102; RESP 20
[2024-02-18 11:05] LABS: Basophils # (auto) 0 10 ^3/uL (0-0.2); Basophils % (auto) 0.1 % (0.0-2.0); Eosinophils # (auto) 0.2 10 ^3/uL (0-0.8); Eosinophils % (auto) 1.2 % (0.0-7.0); Hematocrit 31.3 % (36.0-46.0); Hemoglobin 10.3 g/dL (12.2-16.2); Lymphocytes # (auto) 1.5 10 ^3/uL (0.4-5.4); Lymphocytes % (auto) 7.2 % (10.0-50.0); Mean Corpuscular Hemoglobin 32.9 pg (28.0-32.0); Mean Corpuscular Hgb Conc. 32.9 g/dL (32.0-36.0); Mean Corpuscular Volume 100.2 fL (80.0-100.0); Monocytes % (auto) 4.8 % (0.0-12.0); Neutrophils # (auto) 17.5 10 ^3/uL (1.6-8.6); Neutrophils % (auto) 86.7 % (37.0-80.0); Red Blood Cells 3.12 10^6/uL (4.0-5.20); Red Cell Distribution Width 14.4 % (11.8-14.3); White Blood Cell 20.2 10^3/uL (4.4-10.8)
[2024-02-18 11:19] LABS: Urine Bacteria MANY /hpf (None Seen); Urine Blood 1+ /uL (Negative); Urine Clarity Turbid (Clear); Urine Color Yellow (Yellow); Urine Hyaline Cast MOD /lpf (0 - 2); Urine Mucus FEW (None Seen); Urine Protein, UAD TRACE (Negative); Urine Specific Gravity 1.012 (1.001-1.035); Urine Urobilinogen Normal (Negative); Urine WBC 50 /hpf (0 - 5); Urine pH 5.5 (5.0-9.0)
[2024-02-18 11:26] LABS: Amphetamine Screen, Urine Neg (NEGATIVE); Barbiturate Scree,Urine Neg (NEGATIVE); Benzodiazephine Screen, Urine Neg (NEGATIVE); Cocaine Screen, Urine Neg (NEGATIVE); Opiate Scree,Urine Neg (NEGATIVE)
[2024-02-18 11:27] LABS: Cannabinoid Screen, Urine Neg (NEGATIVE); Phencyclidine Screen, Urine Neg (NEGATIVE)
[2024-02-18] MEDS: LORazepam 2MG/ML-1ML VIAL IV ONE (11:42)
[2024-02-18] MEDS: PIPERACILLIN-TAZOB 3.375GM 100 ML IV ONE (12:24)
[2024-02-18 12:54] LABS: Alanine Aminotransferase 32 U/L (7-40); Albumin 1.8 g/dL (3.2-4.8); Alkaline Phosphatase 230 U/L (46-116); Anion Gap 11 (5-15); Aspartate Aminotransferase 31 U/L (13-40); BUN/Creatinine Ratio 6.9 (10.0-20.0); Bilirubin, Total 2.4 mg/dL (0.2-1.0); Blood Urea Nitrogen 14 mg/dL (9-23); Calcium 7.7 mg/dL (8.5-10.1); Carbon Dioxide 18 mmol/L (20-30); Chloride 107 mmol/L (98-107); Glucose 114 mg/dL (74-106); Magnesium 1.4 mg/dL (1.6-2.6); Potassium 3.6 mmol/L (3.5-5.1); Sodium 136 mmol/L (136-145); Total Protein 4.9 g/dL (5.7-8.2)
[2024-02-18] MEDS: SODIUM CHLORIDE 0.9% 1,000 ML IV ONE (13:45)
[2024-02-18] MEDS ORDERED: DEXTROSE (50%) 50ML SYRG IV PRN ×2 (13:45→17:00)
[2024-02-18] MEDS: SODIUM CHLORIDE 0.9% 2,000 ML IV ONE (14:00)
[2024-02-18 14:16] LABS: Lactic Acid w/Reflex 5.9 mmol/L (0.4-2.0)
[2024-02-18] MEDS: CALCIUM GLUC 1,000mg/50ml-NS 50 ML IV ONE (14:32)
[2024-02-18] MEDS: MAGNESIUM SULFATE 1GM/100ML 100 ML IV SCH ×2 (14:41→20:30)
[2024-02-18] MEDS: SODIUM CHLORIDE 0.9% 1,000 ML IV SCH (14:45)
[2024-02-18] MEDS: LORazepam 2MG/ML-1ML VIAL IV PRN (15:09)
[2024-02-18 15:11] LABS: Base Excess -6.5 mmol/L (-2.0-2.0)
[2024-02-18] MEDS ORDERED: MORPHINE SULFATE INJ 2 MG/ml SYRG IV PRN (15:15)
[2024-02-18] MEDS ORDERED: NITROGLYCERIN 0.4 MG SL TAB SL PRN (15:15)
[2024-02-18] MEDS: THIAMINE 100mg/ml INJ (200mg/2ml VIAL) IM ONE (15:15)
[2024-02-18] MEDS ORDERED: VANCOMYCIN PER PHARMACY 0 MG IV SCH (15:30)
[2024-02-18] MEDS ORDERED: MEROPENEM 1GM IVPB 50 ML IV SCH (15:30)
[2024-02-18 16:16] LABS: INR 2.66 (0.9-1.15); Prothrombin Time 26.2 sec (9.3-11.8)
[2024-02-18 16:17] LABS: Blood Alcohol < 3.0 mg/dL (<10)
[2024-02-18 16:19] LABS: Creatine Kinase IFCC 73 U/L (34-145)
[2024-02-18 16:20] LABS: % Iron Saturation 23.1 % (15-50)
[2024-02-18] MEDS: InsuLIN REG 1unit/0.01ml Soln (100units/ml) SC SCH ×2 (17:00→18:00)
[2024-02-18] MEDS: VANCOMYCIN 1GM/200ML 200 ML IV ONE (17:00)
[2024-02-18] MEDS: ACCU-CHEK COMFORT CURVE STRIP VI SCH ×2 (17:00→18:18)
[2024-02-18 17:06] LABS: Ferritin 164.5 ng/mL (10-291); Folate (Folic Acid) 9.38 ng/mL (>5.38)
[2024-02-18 18:15] VITALS: BP 119/92; PULSE 54; RESP 20; O2SAT 98
[2024-02-18] MEDS: FOLIC ACID 1 MG, MULTIPLE VITAMIN 10 ML, THIAMINE INJ 100 MG in SODIUM CHLORIDE 0.9% 1,... INJ ONE (18:27)
[2024-02-18 19:30] VITALS: PULSE 117; RESP 19; O2SAT 99
[2024-02-18] MEDS: MEROPENEM 1GM IVPB 50 ML IV SCH (19:45)
[2024-02-18] MEDS ORDERED: ENOXAPARIN SOD 30 MG/0.3 ML SYRINGE SC ONE (20:00)
[2024-02-18 20:55] LABS: Protein, Urine 40.1 mg/dL (0.0-11.9)
[2024-02-18 20:57] LABS: Creatinine, Urine 103.54 mg/dL (30.0-125.0)
[2024-02-18] MEDS: ALBUMIN 25% 100 ML IV ONE (21:11)
[2024-02-18 22:02] VITALS: BP 119/92; PULSE 57; RESP 20; O2SAT 93
[2024-02-18 23:11] LABS: Rapid Influenza A Negative (Negative); Rapid Influenza B Negative (Negative)
[2024-02-18 23:12] LABS: COVID19 ANTIGEN SOFIA FIA NEGATIVE (NEGATIVE)
[2024-02-18 23:35] VITALS: BP 92/53; PULSE 114; RESP 17; TEMP 97.9; O2SAT 98
[2024-02-18] MEDS: LACTATED RINGER'S 1,000 ML IV ONE (23:44)
[2024-02-19] VITALS (41 sets, daily range): BP systolic 76–123; BP diastolic 29–72; PULSE 95–120; RESP 20–26; TEMP 98.6; O2SAT 84–100
[2024-02-19] MEDS: DEXTROSE (50%) 50ML SYRG IV ONE (00:45)
[2024-02-19] MEDS: PHENYLEPHRINE IV 250 ML IV SCH (01:38)
[2024-02-19] MEDS: InsuLIN REG 1unit/0.01ml Soln (100units/ml) SC SCH (04:00)
[2024-02-19] MEDS: NOREPINEPHRINE 8 MG/250ML KIT 250 ML IV SCH (04:08)
[2024-02-19] MEDS: ACCU-CHEK COMFORT CURVE STRIP VI SCH (04:21)
[2024-02-19 04:30] LABS: Base Excess -7.5 mmol/L (-2.0-2.0)
[2024-02-19] MEDS: SUCCINYLCHOLINE CHLORIDE 20 MG/ML 10ML VIAL IV ONE ×2 (05:18→05:22)
[2024-02-19] MEDS: ETOMIDATE (2MG/ML) 20ML VIAL IV ONE ×2 (05:18→05:22)
[2024-02-19] MEDS: MIDAZOLAM DRIP 50 mg/50mL 50 ML IV SCH (05:19)
[2024-02-19] MEDS: MIDAZOLAM DRIP 50 mg/50mL 50 ML IV ONE (05:22)
[2024-02-19] MEDS: LEVOTHYROXINE SODIUM 25 MCG TAB PO SCH (06:00)
[2024-02-19] MEDS: fentaNYL Drip 2500mCg/250mlNS 250 ML IV SCH (06:06)
[2024-02-19] MEDS: fentaNYL Drip 2500mCg/250mlNS 250 ML IV ONE (06:15)
[2024-02-19] MEDS: LACTULOSE 10g/15ml SOLN 473ML PR SCH (06:28)
[2024-02-19] MEDS ORDERED: Jevity 1.2 Cal/Fiber 1 Liter GT SCH (07:15)
[2024-02-19 07:21] LABS: INR 2.66 (0.9-1.15); Prothrombin Time 26.2 sec (9.3-11.8)
[2024-02-19 07:28] LABS: Alanine Aminotransferase 32 U/L (7-40); Albumin 2.2 g/dL (3.2-4.8); Alkaline Phosphatase 208 U/L (46-116); Anion Gap 12 (5-15); Aspartate Aminotransferase 68 U/L (13-40); BUN/Creatinine Ratio 6.6 (10.0-20.0); Blood Urea Nitrogen 14 mg/dL (9-23); Calcium 7.7 mg/dL (8.5-10.1); Carbon Dioxide 18 mmol/L (20-30); Chloride 110 mmol/L (98-107); Glucose 75 mg/dL (74-106); Magnesium 1.7 mg/dL (1.6-2.6); Potassium 3.8 mmol/L (3.5-5.1); Sodium 140 mmol/L (136-145)
[2024-02-19 07:29] LABS: Bilirubin, Total 3.4 mg/dL (0.2-1.0); Phosphorus 5.5 mg/dL (2.4-5.1); Total Protein 5.4 g/dL (5.7-8.2)
[2024-02-19] MEDS: HYDROCORTISONE SOD SUCC 100 MG/2ML INJ VIAL IV ONE (07:53)
[2024-02-19 07:58] LABS: Lactic Acid w/Reflex 6.7 mmol/L (0.4-2.0)
[2024-02-19 08:01] LABS: Hematocrit 34.9 % (36.0-46.0); Hemoglobin 10.6 g/dL (12.2-16.2); Mean Corpuscular Hemoglobin 31.6 pg (28.0-32.0); Mean Corpuscular Hgb Conc. 30.4 g/dL (32.0-36.0); Mean Corpuscular Volume 103.9 fL (80.0-100.0); Red Blood Cells 3.36 10^6/uL (4.0-5.20); Red Cell Distribution Width 15.6 % (11.8-14.3)
[2024-02-19 08:05] LABS: Basophils % (manual) 0 (0.0-2.0); Blast Cells 0; Eosinophils % (manual) 0 (0-7); Metamyelocytes % 0; Myelocytes % 0; Promyelocytes % 0; Reactive Lymphocytes 0
[2024-02-19 08:47] LABS: Band Neutrophils % (manual) 35; Lymphocytes % (manual) 10 (10.0-50.0); Macrocytosis Slight; Monocytes % (manual) 7 (0-12); Platelet Estimate Decreased
[2024-02-19] MEDS ORDERED: PANTOPRAZOLE 40mg/50ML NS AE 50 ML IV SCH (09:30)
[2024-02-19] MEDS ORDERED: OCTREOTIDE ACETATE 500 MCG in SODIUM CHL 0.9% 99 ML IV SCH (09:30)
[2024-02-19] MEDS ORDERED: PANTOPRAZOLE 40 MG/10 ML VIAL INJ IV SCH (10:00)
[2024-02-19] MEDS ORDERED: ENOXAPARIN SOD 30 MG/0.3 ML SYRINGE SC SCH (10:00)
[2024-02-19] MEDS: CHOLECALCIFEROL (VITD3) 1,000UNIT=25mCg TAB PO SCH (10:00)
[2024-02-19] MEDS ORDERED: LEVOTHYROXINE SODIUM 100 MCG/5 ML INJ IV SCH (10:00)
[2024-02-19] MEDS: PHENYLEPHRINE INJ 80 MG in SODIUM CHL 0.9% 242 ML IV SCH (10:11)
[2024-02-19] MEDS: PHENYLEPHRINE IV 250 ML IV ONE (10:12)
[2024-02-19] MEDS: NOREPINEPHRINE BITARTRATE 32 MG in SODIUM CHL 0.9% 218 ML IV SCH (10:12)
[2024-02-19] MEDS: VANCOMYCIN 1GM/200ML 200 ML IV ONE (10:14)
[2024-02-19] MEDS: MAGNESIUM SULFATE 1GM/100ML 100 ML IV ONE (10:18)
[2024-02-19] MEDS: D5W 5% 1,000 ML IV SCH (10:26)
[2024-02-19] MEDS ORDERED: HYDROCORTISONE SOD SUCC 100 MG/2ML INJ VIAL IV SCH (12:00)
[2024-02-19] MEDS: PANTOPRAZOLE 80 MG in SODIUM CHL 0.9% 100 ML IV ONE (12:26)
[2024-02-19] MEDS: OCTREOTIDE ACETATE 100 MCG in SODIUM CHL 0.9% 50 ML IV ONE (12:26)
[2024-02-19] MEDS: SODIUM BICARB 50mEq/50ml Vial 150 ML in D5W 5% 1,000 ML IV SCH (12:50)
[2024-02-19] MEDS: ALBUMIN 25% 50 ML IV SCH (12:59)
[2024-02-19] MEDS: THIAMINE 100mg/ml INJ (200mg/2ml VIAL) IV SCH (13:23)
[2024-02-19] MEDS ORDERED: TORS20TA20 PO (14:43)
[2024-02-19] MEDS ORDERED: DULO20CA PO (14:43)
[2024-02-19 16:42] LABS: Base Excess -7.3 mmol/L (-2.0-2.0)
[2024-02-19] MEDS: VASOPRESSIN 20 UNITS in SODIUM CHL 0.9% 99 ML IV SCH (17:12)
[2024-02-19] MEDS: FOLIC ACID 1 MG, MAGNESIUM SULF SDV 50% 8 MEQ, MULTIPLE VITAMIN 10 ML, THIAMINE INJ 100... INJ SCH (18:00)
[2024-02-19] MEDS: PANTOPRAZOLE 40 MG/10 ML VIAL INJ IV SCH (21:12)
[2024-02-20] VITALS (107 sets, daily range): BP systolic 82–116; BP diastolic 49–71; PULSE 89–102; RESP 21–25; TEMP 97–99.3; O2SAT 86–100
[2024-02-20 06:49] LABS: Base Excess -4.9 mmol/L (-2.0-2.0)
[2024-02-20 06:58] LABS: Chloride 107 mmol/L (98-107); Potassium 3.9 mmol/L (3.5-5.1); Sodium 141 mmol/L (136-145)
[2024-02-20 06:59] LABS: Anion Gap 12 (5-15); Calcium 7.1 mg/dL (8.5-10.1); Carbon Dioxide 22 mmol/L (20-30)
[2024-02-20 07:04] LABS: BUN/Creatinine Ratio 6.9 (10.0-20.0); Blood Urea Nitrogen 18 mg/dL (9-23); Glucose 169 mg/dL (74-106)
[2024-02-20 07:59] LABS: Albumin 2.4 g/dL (3.2-4.8); Alkaline Phosphatase 145 U/L (46-116); Anion Gap 12 (5-15); Aspartate Aminotransferase 55 U/L (13-40); BUN/Creatinine Ratio 7.4 (10.0-20.0); Bilirubin, Total 3.4 mg/dL (0.2-1.0); Blood Urea Nitrogen 19 mg/dL (9-23); Calcium 7.2 mg/dL (8.5-10.1); Carbon Dioxide 21 mmol/L (20-30); Chloride 107 mmol/L (98-107); Glucose 169 mg/dL (74-106); Potassium 3.9 mmol/L (3.5-5.1); Sodium 140 mmol/L (136-145)
[2024-02-20 08:00] LABS: Total Protein 5.1 g/dL (5.7-8.2)
[2024-02-20 08:06] LABS: Haptoglobin 59 mg/dL (33-346)
[2024-02-20 08:12] LABS: Hematocrit 27.4 % (36.0-46.0); Hemoglobin 8.5 g/dL (12.2-16.2); Mean Corpuscular Hemoglobin 31.5 pg (28.0-32.0); Mean Corpuscular Hgb Conc. 31.2 g/dL (32.0-36.0); Red Blood Cells 2.71 10^6/uL (4.0-5.20); White Blood Cell 25.3 10^3/uL (4.4-10.8)
[2024-02-20 08:13] LABS: Basophils % (manual) 0 (0.0-2.0); Blast Cells 0; Eosinophils % (manual) 0 (0-7); Metamyelocytes % 0; Myelocytes % 0; Promyelocytes % 0; Reactive Lymphocytes 0
[2024-02-20 08:40] LABS: Alanine Aminotransferase 23 U/L (7-40)
[2024-02-20 09:19] LABS: Band Neutrophils % (manual) 4; Lymphocytes % (manual) 8 (10.0-50.0); Monocytes % (manual) 4 (0-12); Platelet Estimate Decreased
[2024-02-20] MEDS: MUPIROCIN 2% OINT 15gm or 22gm FOR MRSA NARES EACHNOSTRI SCH (10:00)
[2024-02-20] MEDS: ALBUMIN 25% 50 ML IV SCH (11:20)
[2024-02-20 11:25] LABS: White Blood Cell 36.2 10^3/uL (4.4-10.8)
[2024-02-20] MEDS: VANCOMYCIN 500 MG in D5W 5% 100 ML IV ONE (12:43)
[2024-02-20] MEDS: FUROSEMIDE 100 MG/10ML VIAL IV ONE (17:51)
[2024-02-20] MEDS: FUROSEMIDE INJECTION 100 MG in SODIUM CHL 0.9% 100 ML IV SCH (19:56)
[2024-02-21] VITALS (126 sets, daily range): BP systolic 82–127; BP diastolic 47–97; PULSE 76–117; RESP 13–28; TEMP 93–99.1; O2SAT 72–100
[2024-02-21 04:26] LABS: Anion Gap 8 (5-15); Carbon Dioxide 25 mmol/L (20-30); Chloride 106 mmol/L (98-107); Potassium 3.6 mmol/L (3.5-5.1); Sodium 139 mmol/L (136-145)
[2024-02-21 04:27] LABS: Calcium 7.3 mg/dL (8.7-10.4)
[2024-02-21 04:32] LABS: BUN/Creatinine Ratio 6.8 (10.0-20.0); Blood Urea Nitrogen 20 mg/dL (9-23); Glucose 115 mg/dL (74-106)
[2024-02-21 06:01] LABS: Basophils # (auto) 0.1 10 ^3/uL (0-0.2)
[2024-02-21 06:03] LABS: Basophils % (auto) 0.3 % (0.0-2.0); Eosinophils # (auto) 0.1 10 ^3/uL (0-0.8); Eosinophils % (auto) 0.7 % (0.0-7.0); Hematocrit 19.5 % (36.0-46.0); Lymphocytes # (auto) 2.1 10 ^3/uL (0.4-5.4); Lymphocytes % (auto) 10.5 % (10.0-50.0); Mean Corpuscular Hgb Conc. 32.9 g/dL (32.0-36.0); Mean Corpuscular Volume 97.1 fL (80.0-100.0); Monocytes # (auto) 0.4 10 ^3/uL (0-1.3); Monocytes % (auto) 2.2 % (0.0-12.0); Neutrophils # (auto) 17.4 10 ^3/uL (1.6-8.6); Neutrophils % (auto) 86.3 % (37.0-80.0); Nucleated Red Blood Cells % 0.1 %; Red Blood Cells 2.01 10^6/uL (4.0-5.20); Red Cell Distribution Width 14.6 % (11.8-14.3); White Blood Cell 20.2 10^3/uL (4.4-10.8)
[2024-02-21 06:30] LABS: Hemoglobin 6.4 g/dL (12.2-16.2)
[2024-02-21 08:07] LABS: Complement C3 38 mg/dL (82-167)
[2024-02-21 08:30] LABS: Platelet Estimate Decreased
[2024-02-21 08:31] LABS: Anisocytosis Slight; Stomatocytes Few
[2024-02-21 09:19] LABS: Base Excess -2.2 mmol/L (-2.0-2.0)
[2024-02-21] MEDS: VANCOMYCIN 1GM/200ML 200 ML IV ONE (09:49)
[2024-02-21 10:00] LABS: Albumin 2.6 g/dL (3.2-4.8); Bilirubin, Direct 3.3 mg/dL (<0.3); Bilirubin, Total 3.7 mg/dL (0.2-1.0); Total Protein 5.2 g/dL (5.7-8.2)
[2024-02-21 10:39] LABS: INR 1.75 (0.9-1.15); Partial Thromboplastin Time 39.4 SEC (24.5-34.5); Prothrombin Time 17.8 sec (9.3-11.8)
[2024-02-21] MEDS: FUROSEMIDE INJECTION 100 MG in SODIUM CHL 0.9% 100 ML IV SCH (14:27)
[2024-02-21] MEDS: ROCURONIUM 10MG/ML 10ML VIAL IV ONE ×2 (18:57→19:45)
[2024-02-21 19:50] LABS: Eosinophils # (auto) 0.3 10 ^3/uL (0-0.8); Lymphocytes # (auto) 1.7 10 ^3/uL (0.4-5.4); Monocytes # (auto) 0.2 10 ^3/uL (0-1.3)
[2024-02-21 19:52] LABS: Basophils # (auto) 0.1 10 ^3/uL (0-0.2); Basophils % (auto) 0.4 % (0.0-2.0); Eosinophils % (auto) 1.8 % (0.0-7.0); Hematocrit 28.8 % (36.0-46.0); Hemoglobin 9.1 g/dL (12.2-16.2); Mean Corpuscular Hemoglobin 29.7 pg (28.0-32.0); Mean Corpuscular Hgb Conc. 31.8 g/dL (32.0-36.0); Mean Corpuscular Volume 93.4 fL (80.0-100.0); Monocytes % (auto) 1.4 % (0.0-12.0); Neutrophils % (auto) 86.4 % (37.0-80.0); Red Blood Cells 3.08 10^6/uL (4.0-5.20); Red Cell Distribution Width 16.3 % (11.8-14.3); White Blood Cell 17.4 10^3/uL (4.4-10.8)
[2024-02-21] MEDS ORDERED: ROCURONIUM 10MG/ML 10ML VIAL IV ONE (20:00)
[2024-02-21] MEDS ORDERED: ROCURONIUM 10MG/ML 10ML VIAL IV PRN ×2 (20:00→20:15)
[2024-02-21 20:09] LABS: Alanine Aminotransferase 21 U/L (7-40); Albumin 2.3 g/dL (3.2-4.8); Alkaline Phosphatase 167 U/L (46-116); Anion Gap 9 (5-15); Aspartate Aminotransferase 63 U/L (13-40); BUN/Creatinine Ratio 7.4 (10.0-20.0); Blood Urea Nitrogen 23 mg/dL (9-23); Calcium 7.2 mg/dL (8.7-10.4); Carbon Dioxide 25 mmol/L (20-30); Chloride 107 mmol/L (98-107); Glucose 84 mg/dL (74-106); Potassium 3.6 mmol/L (3.5-5.1); Sodium 141 mmol/L (136-145)
[2024-02-21 20:10] LABS: Bilirubin, Total 4.5 mg/dL (0.2-1.0); Total Protein 5.3 g/dL (5.7-8.2)
[2024-02-21 20:37] LABS: Platelet Estimate Decreased
[2024-02-21] MEDS ORDERED: PROPOFOL 100 ML IV SCH (21:30)
[2024-02-21] MEDS ORDERED: fentaNYL Drip 2500mCg/250mlNS 250 ML IV SCH (21:30)
[2024-02-22] VITALS (90 sets, daily range): BP systolic 57–104; BP diastolic 14–62; PULSE 28–158; RESP 0–35; TEMP 96.6–98.2; O2SAT 10–99
[2024-02-22 04:48] LABS: White Blood Cell 16.6 10^3/uL (4.4-10.8)
[2024-02-22 04:50] LABS: Hematocrit 24.5 % (36.0-46.0); Mean Corpuscular Hgb Conc. 32.5 g/dL (32.0-36.0); Mean Corpuscular Volume 92.3 fL (80.0-100.0); Red Blood Cells 2.66 10^6/uL (4.0-5.20)
[2024-02-22 05:19] LABS: Basophils % (manual) 0 (0.0-2.0); Blast Cells 0; Metamyelocytes % 0; Promyelocytes % 0; Reactive Lymphocytes 0
[2024-02-22 05:27] LABS: Alanine Aminotransferase 15 U/L (7-40); Alkaline Phosphatase 161 U/L (46-116); Anion Gap 8 (5-15); Aspartate Aminotransferase 66 U/L (13-40); BUN/Creatinine Ratio 8.2 (10.0-20.0); Blood Urea Nitrogen 27 mg/dL (9-23); Calcium 7.2 mg/dL (8.7-10.4); Carbon Dioxide 25 mmol/L (20-30); Chloride 108 mmol/L (98-107); Glucose 66 mg/dL (74-106); Magnesium 1.8 mg/dL (1.6-2.6); Potassium 3.5 mmol/L (3.5-5.1); Sodium 141 mmol/L (136-145)
[2024-02-22 05:28] LABS: Bilirubin, Total 4.6 mg/dL (0.2-1.0); Total Protein 4.8 g/dL (5.7-8.2)
[2024-02-22 06:27] LABS: Anisocytosis Slight; Band Neutrophils % (manual) 6; Eosinophils % (manual) 3 (0-7); Hypochromia Slight; Lymphocytes % (manual) 11 (10.0-50.0); Monocytes % (manual) 6 (0-12); Myelocytes % 1; Platelet Estimate Markedly Decreased; Target Cell FEW
[2024-02-22] MEDS: DEXTROSE (50%) 50ML SYRG IV PRN (06:39)
[2024-02-22 07:55] LABS: Base Excess -1.5 mmol/L (-2.0-2.0)
[2024-02-22] MEDS: ALBUMIN 25% 100 ML IV SCH (13:18)
[2024-02-22] MEDS ORDERED: DEXTROSE (50%) 50ML SYRG IV PRN (13:30)
[2024-02-22] MEDS ORDERED: TPN PER PHARMACY 0 ML IV SCH (13:30)
[2024-02-22] MEDS ORDERED: DEXTROSE (50%) 50ML SYRG IV SCH (14:00)
[2024-02-22] MEDS ORDERED: PHENYLEPHRINE IV 250 ML IV ONE (15:26)
[2024-02-22] MEDS ORDERED: EPINEPHrine HCL 250 ML IV ONE (15:39)
[2024-02-22] MEDS ORDERED: EPINEPHrine HCL 250 ML IV SCH (15:40)
[2024-02-22] MEDS: SODIUM BICARB 8.4% 50Meq/50ml SYR Vial IV ONE (16:16)
[2024-02-22] MEDS: MORPHINE SULFATE INJ 2 MG/ml SYRG IV PRN (16:52)
[2024-02-22] MEDS: LORazepam 2MG/ML-1ML VIAL IV PRN (16:57)
[2024-02-22] MEDS ORDERED: DOPamine 1600MCG/ML D5W 250 ML IV SCH (17:30)
[2024-02-22] MEDS ORDERED: InsuLIN REG 1unit/0.01ml Soln (100units/ml) SC SCH (18:00)
[2024-02-22] MEDS ORDERED: ACCU-CHEK COMFORT CURVE STRIP VI SCH (18:00)
[2024-02-22] MEDS ORDERED: AMINO ACID INFUSION IN D10W 2,000 ML IV NR (20:00)
[2024-02-23] MEDS ORDERED: ATROPINE SULF 1 MG/10ml SYR IM ONE (13:19)
[2024-02-23 20:06] LABS: Antimyeloperoxidase (MPO) Ab <0.2 units (0.0-0.9); Antiproteinase 3 (PR-3) Ab <0.2 units (0.0-0.9)
[2024-02-24 06:06] LABS: Methylmalonic Acid 203 nmol/L (0-378)
[2024-02-24 13:07] LABS: Cytoplasmic (C-ANCA) <1:20 titer (Neg:<1:20); Perinuclear (P-ANCA) <1:20 titer (Neg:<1:20)
[2024-02-25 19:07] LABS: Legionella pneumophila Abs Equivocal (Non Reactive)
== END 2024-02-22 23:50 | DRG 871 ==
LOC: EDBD 09:53 → ER 09:53 → TELE 15:04 → ICU WEST 02-19 16:59 → UNDODISIN 02-23 00:05
PROVIDERS: ADMIT Internal Medicine Pulmonary Disease; ATTEND Internal Medicine Pulmonary Disease
PROC: 5A0935A Assistance with Respiratory Ventilation, Less than 24 Consecutive Hours, High Flow/Velocity Cannula (ICD-10-PCS; 2024-02-18)
PROC: 0BH17EZ Insertion of Endotracheal Airway into Trachea, Via Natural or Artificial Opening (ICD-10-PCS; principal; 2024-02-19)
PROC: 5A1945Z Respiratory Ventilation, 24-96 Consecutive Hours (ICD-10-PCS; 2024-02-19)
PROC: 06HY33Z Insertion of Infusion Device into Lower Vein, Percutaneous Approach (ICD-10-PCS; 2024-02-19)
PROC: B54BZZA Ultrasonography of Right Lower Extremity Veins, Guidance (ICD-10-PCS; 2024-02-19)
PROC: 30233K1 Transfusion of Nonautologous Frozen Plasma into Peripheral Vein, Percutaneous Approach (ICD-10-PCS; 2024-02-20)
PROC: 0B978ZZ Drainage of Left Main Bronchus, Via Natural or Artificial Opening Endoscopic (ICD-10-PCS; 2024-02-21)
PROC: 0B938ZZ Drainage of Right Main Bronchus, Via Natural or Artificial Opening Endoscopic (ICD-10-PCS; 2024-02-21)
PROC: 30233N1 Transfusion of Nonautologous Red Blood Cells into Peripheral Vein, Percutaneous Approach (ICD-10-PCS; 2024-02-21)
PROC: 30233R1 Transfusion of Nonautologous Platelets into Peripheral Vein, Percutaneous Approach (ICD-10-PCS; 2024-02-22)
DX: A41.02 Sepsis due to Methicillin resistant Staphylococcus aureus (principal); D65 Disseminated intravascular coagulation [defibrination syndrome]; E43 Unspecified severe protein-calorie malnutrition; G93.41 Metabolic encephalopathy; J15.69 Pneumonia due to other Gram-negative bacteria; J96.01 Acute respiratory failure with hypoxia; I21.A1 Myocardial infarction type 2; R65.21 Severe sepsis with septic shock; J15.9 Unspecified bacterial pneumonia; N17.0 Acute kidney failure with tubular necrosis; N12 Tubulo-interstitial nephritis, not specified as acute or chronic; G93.1 Anoxic brain damage, not elsewhere classified; M86.8X7 Other osteomyelitis, ankle and foot; J81.1 Chronic pulmonary edema; J90 Pleural effusion, not elsewhere classified; J98.11 Atelectasis; R04.2 Hemoptysis; N18.4 Chronic kidney disease, stage 4 (severe); E03.9 Hypothyroidism, unspecified; E78.5 Hyperlipidemia, unspecified; E83.42 Hypomagnesemia; E88.09 Other disorders of plasma-protein metabolism, not elsewhere classified; Z20.822 Contact with and (suspected) exposure to COVID-19; E83.51 Hypocalcemia; E80.6 Other disorders of bilirubin metabolism; E10.51 Type 1 diabetes mellitus with diabetic peripheral angiopathy without gangrene; I48.91 Unspecified atrial fibrillation; D53.9 Nutritional anemia, unspecified; E10.69 Type 1 diabetes mellitus with other specified complication; E10.621 Type 1 diabetes mellitus with foot ulcer; F10.20 Alcohol dependence, uncomplicated; I27.20 Pulmonary hypertension, unspecified; E66.9 Obesity, unspecified; E10.22 Type 1 diabetes mellitus with diabetic chronic kidney disease; I12.9 Hypertensive chronic kidney disease with stage 1 through stage 4 chronic kidney disease, or unspecified chronic kidney disease; Y90.9 Presence of alcohol in blood, level not specified; I46.9 Cardiac arrest, cause unspecified; Z88.1 Allergy status to other antibiotic agents; Z90.49 Acquired absence of other specified parts of digestive tract; Z88.2 Allergy status to sulfonamides; Z98.51 Tubal ligation status; Z82.49 Family history of ischemic heart disease and other diseases of the circulatory system; Z98.84 Bariatric surgery status; Z51.5 Encounter for palliative care; Z79.4 Long term (current) use of insulin; Z68.30 Body mass index [BMI] 30.0-30.9, adult
CPT/HCPCS: 36415; 36600; 70450; 71045; 71250; 73560; 73700; 74176; 80048; 80053; 80076; 80202; 80307; 80320; 81001; 82140; 82306; 82550; 82565; 82570; 82607; 82728; 82746; 82805; 82962; 82977; 83010; 83036; 83516; 83520; 83540; 83550; 83605; 83615; 83690; 83735; 83930; 84100; 84133; 84156; 84300; 84443; 84484; 84702; 85007; 85025; 85027; 85362; 85379; 85384; 85610; 85730; 86160; 86225; 86235; 86256; 86850; 86900; 86901; 86920; 87040; 87070; 87077; 87081; 87086; 87088; 87147; 87186; 87205; 87278; 87426; 87804; 93005; 93306; 93925; 93970; 94002; 94003; 96365; 96375; 99291; C9113; G0378; J0171; J0330; J1815; J2185; J2543; J3490; J7060; P9047